=== PATIENT | male | born 1945 | race Caucasian/White ===

== ENCOUNTER 2021-09-05 08:14 | Inpatient (IN) ==
[2021-09-05 08:29] LABS: ABG BASE EXCESS -5.1 mmol/L (-2.0-2.0); ABG HCO3 19.9 mmol/L (22-26)
[2021-09-05 08:30] LABS: ABG ALLEN TEST POS
[2021-09-05 08:54] LABS: BASOPHILS # (AUTO) 0.1 X10^3/uL (0.0-0.1); BASOPHILS % (AUTO) 0.5 % (0.2-1.0); EOSINOPHILS % (AUTO) 0.4 % (0.9-2.9); HEMATOCRIT 41.4 % (42.0-54.0); HEMOGLOBIN 13.7 g/dL (13.5-18.0); LYMPHOCYTES # (AUTO) 1.3 X10^3/uL (1.3-2.9); LYMPHOCYTES % (AUTO) 11.6 % (21.0-51.0); MEAN CORPUSCULAR HEMOGLOBIN 30.9 pg (27.0-34.0); MEAN CORPUSCULAR HGB CONC 33.2 g/dL (33.0-35.0); MEAN PLATELET VOLUME 9.1 fL (7.4-11.0); MONOCYTES # (AUTO) 0.8 x10^3/uL (0.3-0.8); MONOCYTES % (AUTO) 7.6 % (0.0-13.0); NEUTROPHILS # (AUTO) 8.8 x10^3/uL (2.2-4.8); NEUTROPHILS % (AUTO) 79.9 % (42.0-75.0); RED BLOOD COUNT 4.45 X10^6/uL (4.7-6.0); RED CELL DISTRIBUTION WIDTH 14.4 % (11.6-16.5)
--- NOTE | 2021-09-05 08:59 | DR.GENAD ---
HPI Time Seen Time Seen by Provider: 09/05/21 08:30 PCP Primary Care Physician: BRIAN HPI Comment HPI Comment: A 75 y/o male presennting with worsening SOB x 2 week. He has cough, non-preductive. He states that he was diagnosed with COVID 1 week ago. He is O2 dependent COPD pt. Complaint/Symptoms Chief Complaint:: PT TESTED POSITIVE FOR COVID ON MONDAY THIS WEEK AND SYMPTOMS HAVE CONT TO WORSEN. PT PRESENTS TO TRIAGE IN RESP DISTRESS, RESP 44/MIN, O2 SAT 51% ON 3L NC PER PORTABLE HOME O2, CARBALLO/PURPLE IN COLOR COVID-19 Coronavirus risk:travel/contact w/high risk person: Yes Has patient experienced Coronavirus symptoms: Yes Coronavirus symptoms experienced: Coughing and Shortness of Breath Nurses notes reviewed Nurses Notes Review: Yes Source History Provided: Patient, Family Member and Significant Other Mode of Arrival Mode of Arrival: Wheelchair Timing Onset of Chief Complaint: 09/05/21 Came on: Gradually Duration Duration: Constant How lon Duration: Weeks Severity Severity: Moderate PMH PMH Past Medical History: Yes Past Medical History: COPD, Diabetes and Hypertension Past Medical History Comment: RECURRENT PNEUM Past Surgical History: Yes Surgical History: Appendectomy and CABG/Valve Surgery Family History History of Family Medical Conditions: Yes Family Medical History: Diabetes Mellitus, Cancer and Coronary Artery Disease Social History Does any household member use tobacco: No Alcohol Use: None Do you use any recreational Drugs:: No Lives With: Spouse and Family Lives Where: Home Travel Risk Coronavirus risk:travel/contact w/high risk person: Yes Has patient experienced Coronavirus symptoms: Yes Coronavirus symptoms experienced: Coughing and Shortness of Breath Infectious screening In the last 2 months have you had wt loss of >10#?: NO Have you had fever, night sweats or hemotysis?: Yes Have you traveled outside the country in the last 6 months?: No Isolation: Droplet ROS Review of Systems Constitutional: No Symptoms Reported Eyes: No Symptoms Reported ENTM: No Symptoms Reported Respiratoy: Productive Cough, Non-Productive Cough and Short of Breath Cardiovascular: No Symptoms Reported Gastrointestinal/Abdominal: No Symptoms Reported Genitourinary: No Symptoms Reported Neurological: No Symptoms Reported Musculoskeletal: No Symptoms Reported Integumentary: No Symptoms Reported Hematologic/Lymphatic: No Symptoms Reported Endocrine: No Symptoms Reported Psychiatric: No Symptoms Reported PE Vital Signs Vitals: Temperature 100.3 F Pulse Rate 86 Respiratory Rate 35 Blood Pressure 175/75 O2 Sat by Pulse Oximetry 95 General Limitations: No Limitations General Appearance: Alert, In Distress and Obese Head Head Exam: Normal Inspection, Atraumatic and Normocephalic Eyes Eye exam: Normal Appearance and EOMI ENT ENT Exam: Normal Exam, Normal Oropharynx, Normal External Ear Exam and Mucous Membranes Moist Neck Neck Exam: Normal Inspection, Full ROM and Trachea Midline Chest Chest Inspection: Normal Inspection and Symmetric Chest Wall Rise Respiratory Respiratory Exam: Other (tachypneic) Respiratory Exam: Bilateral: Rhonchi and Bilateral: Decreased Breath Sounds Cardiovascular Cardiovascular Exam: Regular Rate, Normal Rhythm, Normal Heart Sounds, +S1 and +S2 Abdominal Exam Abdominal Exam: Normal Inspection, Normal Bowel Sounds and Soft Extremities Extremities Exam: Normal Inspection and Full ROM Back Back Exam: Normal Inspection and Full ROM Neurologic Neurological Exam: Alert and Oriented X3 Psychiatric Psychiatric Exam: Normal Affect and Normal Mood Skin Skin Exam: Intact COURSE Education/Counseling Education/Counseling: Patient, Education and Counseling Educated On: Treatment, Diagnosis, Prognosis and Needs for Follow Up Critical Care Notes Total Time (mins): 30 Critical Diagnosis: Acute on Chronic Respiratory failure, Elevated D-dimer, C OVID ROR Labs Reviewed Result Diagrams: 09/05/21 08:19 09/05/21 08:19 Laboratory: 09/05/21 08:23 Sputum - Expectorated Sputum - Final WBC 11.0 X10^3/uL (3.6-10.0) H 09/05/21 08:19 RBC 4.45 X10^6/uL (4.7-6.0) L 09/05/21 08:19 Hgb 13.7 g/dL (13.5-18.0) 09/05/21 08:19 Hct 41.4 % (42.0-54.0) L 09/05/21 08:19 MCV 93.0 fL (80.0-100.0) 09/05/21 08:19 MCH 30.9 pg (27.0-34.0) 09/05/21 08:19 MCHC 33.2 g/dL (33.0-35.0) 09/05/21 08:19 RDW 14.4 % (11.6-16.5) 09/05/21 08:19 Plt Count 288 X10^3/uL (150.0-450.0) 09/05/21 08:19 MPV 9.1 fL (7.4-11.0) 09/05/21 08:19 Neut % (Auto) 79.9 % (42.0-75.0) H 09/05/21 08:19 Lymph % (Auto) 11.6 % (21.0-51.0) L 09/05/21 08:19 [place] % (Auto) 7.6 % (0.0-13.0) 09/05/21 08:19 Eos % (Auto) 0.4 % (0.9-2.9) L 09/05/21 08:19 Baso % (Auto) 0.5 % (0.2-1.0) 09/05/21 08:19 Neut # (Auto) 8.8 x10^3/uL (2.2-4.8) H 09/05/21 08:19 Lymph # (Auto) 1.3 X10^3/uL (1.3-2.9) 09/05/21 08:19 [place] # (Auto) 0.8 x10^3/uL (0.3-0.8) 09/05/21 08:19 Eos # (Auto) 0.0 x10^3/uL (0.0-0.2) 09/05/21 08:19 Baso # (Auto) 0.1 X10^3/uL (0.0-0.1) 09/05/21 08:19 Absolute Nucleated RBC 0.1 /100WBC 09/05/21 08:19 D-Dimer 1.79 ug/ml (0.0-0.57) H* 09/05/21 08:19 Sample Site Lr 09/05/21 08:24 ABG pH 7.350 (7.35-7.45) 09/05/21 08:24 ABG pCO2 36.0 mmHg (35.0-45.0) 09/05/21 08:24 ABG pO2 50.0 mmHg (80.0-100.0) L 09/05/21 08:24 ABG HCO3 19.9 mmol/L (22-26) L 09/05/21 08:24 ABG O2 Saturation 83.0 % (90-100) L* 09/05/21 08:24 ABG Base Excess -5.1 mmol/L (-2.0-2.0) L 09/05/21 08:24 Mir Test Pos 09/05/21 08:24 A-a Gradient 618.0 mmHg 09/05/21 08:24 FiO2 100.0 09/05/21 08:24 Blood Gas Comments Brian well cb 09/05/21 08:24 Sodium 133 mmol/L (136-145) L 09/05/21 08:19 Corrected Sodium 136 mmol/L (136-145) 09/05/21 08:19 Potassium 4.6 mmol/L (3.5-5.1) 09/05/21 08:19 Chloride 97 mmol/L (98-107) L 09/05/21 08:19 Carbon Dioxide 20.6 mmol/L (21-32) L 09/05/21 08:19 BUN 42 mg/dL (7-18) H 09/05/21 08:19 Creatinine 2.02 mg/dL (0.70-1.30) H 09/05/21 08:19 Est GFR (MDRD) Af Amer 42 (>60) L 09/05/21 08:19 Est GFR (MDRD) Non-Af 34 (>60) L 09/05/21 08:19 Glucose 243 mg/dL (65-99) H 09/05/21 08:19 Calcium 9.7 mg/dL (8.5-10.1) 09/05/21 08:19 Corrected Calcium 10.6 mg/dL (8.5-10.1) H 09/05/21 08:19 Total Bilirubin 0.70 mg/dL (0.2-1.0) 09/05/21 08:19 AST 52 Units/L (15-37) H 09/05/21 08:19 ALT 28 Units/L (12-78) 09/05/21 08:19 Alkaline Phosphatase 114 Units/L (46-116) 09/05/21 08:19 C-Reactive Protein 267.50 mg/L (0-3.0) H 09/05/21 08:19 Total Protein 9.0 g/dL (6.4-8.2) H 09/05/21 08:19 Albumin 2.9 g/dL (3.4-5.0) L 09/05/21 08:19 Globulin 6.1 g/dL (2.5-4.5) H 09/05/21 08:19 Albumin/Globulin Ratio 0.5 Ratio (1.1-2.1) L 09/05/21 08:19 SARS-CoV-2 (PCR) Positive (NEGATIVE) A 09/05/21 08:40 Influenza Type A (PCR) Negative (NEGATIVE) 09/05/21 08:40 Influenza Type B (PCR) Negative (NEGATIVE) 09/05/21 08:40 RSV (PCR) Negative (NEGATIVE) 09/05/21 08:40 Opioid Opioid Risk Tool Age (Aidan box if 16-45): No History of Preadolescent Sexual Abuse: No Total: 0 Total Score Risk Category: Low Risk Copyright: Malik JUSTO predicting aberrant behaviors Diagnosis Discharge Problem: Chronic obstructive pulmonary disease with acute respiratory distress, COVID- 19, Diabetes mellitus type 2, insulin dependent, Benign essential HTN, Essential hypertriglyceridemia CAD (coronary artery disease) Qualifiers: Coronary Disease-Associated Artery/Lesion type: [place] artery [place] vs. transplanted heart: [place] heart Associated angina: without angina Qualified Code(s): I25.10 - Atherosclerotic heart disease of [place] coronary artery without angina pectoris Hypothyroidism Qualifiers: Hypothyroidism type: acquired Qualified Code(s): E03.9 - Hypothyroidism, unspecified ADDITIONAL NOTES Additional Notes Additional Notes: Name: Nii CISNEROS#: [id number]: [id number] : 1945Sex: MLocation: ER Order Number(s): [id number](s):CHEST, 1 VIEW Ordering Physician: LUÍS VELASQUEZ Primary Care: NFD,Latasha Service Date: 09/05/21 Service Time: 0855 CHEST, 1 VIEW HISTORY: Respiratory distress Study: Single view of the chest. Comparison:None Findings: Cardiomegaly. Bilateral interstitial prominence, possible early alveolar infiltrates. No focal consolidations, pleural effusions or pneumothorax. Osseous structures demonstrate no acute abnormality. IMPRESSION: 1. Bilateral interstitial prominence and early alveolar infiltrates. Findings may represent atypical infection, including viral etiologies. Electronically signed by: HOLDEN SEVILLA (Sep 05, 2021 09:12:25) Report Electronically signed: 09/05/21912 CC: Luís Velasquez
[2021-09-05 09:06] LABS: ALBUMIN 2.9 g/dL (3.4-5.0); CALCIUM 9.7 mg/dL (8.5-10.1); CARBON DIOXIDE 20.6 mmol/L (21-32); COR CA(FOR HYPOALB) 10.6 mg/dL (8.5-10.1); CREATININE 2.02 mg/dL (0.70-1.30)
--- NOTE | 2021-09-05 09:13 | RAD ---
CHEST, 1 VIEWHISTORY: Respiratory distressStudy: Single view of the chest.Comparison:NoneFindings:Cardiomegaly. Bilateral interstitial prominence, possible early alveolar infiltrates. No focal consolidations, pleural effusions or pneumothorax. Osseous structures demonstrate no acute abnormality.IMPRESSION:1. Bilateral interstitial prominence and early alveolar infiltrates. Findings may represent atypical infection, including viral etiologies.Electronically signed by: HOLDEN SEVILLA (Sep 05, 2021 09:12:25)
[2021-09-05] MEDS ORDERED: LOPRESSOR INJ 5 MG AMP IVP ONE (09:42)
[2021-09-05] MEDS ORDERED: PHARMACY CONSULT - LOVENOX XX SCH (11:06)
[2021-09-05] MEDS ORDERED: ROBITUSSIN DM PO PRN (11:06)
[2021-09-05] MEDS ORDERED: ULTRAM PO PRN (11:06)
[2021-09-05] MEDS ORDERED: REMDESIVIR 200 MG in NS 250 ML IV 250 ML IV ONE (11:06)
[2021-09-05] MEDS: NS 1,000 ML IV 1,000 ML IV SCH (11:48)
[2021-09-05] MEDS: APRESOLINE INJ 20 MG VIAL IVP PRN ×2 (11:48→17:25)
[2021-09-05] MEDS: NYSTATIN POWDER TOP SCH ×2 (13:04→20:38)
[2021-09-05] MEDS: SOLU-Medrol 40 MG VIAL IVP SCH ×2 (13:17→21:00)
[2021-09-05] MEDS: NovoLIN R (or HumuLIN R) SUBCUT PRN ×2 (13:17→16:24)
[2021-09-05] MEDS: ASCORBIC ACID INJ MULTI-DOSE VIAL 1,500 MG in NS 100 ML IV 100 ML IV SCH ×2 (14:12→20:37)
[2021-09-05] MEDS: ZOSYN VIAL 3.375 GRAMS 3.375 G in NS 100 ML IV + SPIKE MINIBAG* 100 ML IV SCH ×2 (14:13→21:00)
[2021-09-05] MEDS ORDERED: PULMICORT NEB TX 0.5 MG NEB ONE (19:52)
[2021-09-05] MEDS ORDERED: BROVANA ONE (19:52)
[2021-09-05] MEDS ORDERED: SNACK - Diabetic Appropriate PO SCH (20:00)
[2021-09-05] MEDS: LOPID PO SCH (20:37)
[2021-09-05] MEDS: LOVENOX INJ 100 MG SYR SC SCH (20:37)
[2021-09-05] MEDS: LOPRESSOR TAB 50 MG PO SCH (20:37)
[2021-09-05] MEDS: SNACK - Diabetic Appropriate PO SCH (20:37)
[2021-09-05] MEDS: PEPCID TAB 40 MG PO SCH (20:38)
[2021-09-05] MEDS: NEURONTIN CAP 300 MG PO SCH (20:38)
[2021-09-05] MEDS: VIBRAMYCIN PO SCH (20:38)
[2021-09-05] MEDS: ZyrTEC TAB 10 MG PO SCH (20:39)
[2021-09-05] MEDS: ZINC SULFATE PO SCH (20:39)
[2021-09-05] MEDS: BROVANA IN SCH (20:52)
[2021-09-05] MEDS: PULMICORT NEB TX 0.5 MG NEB SCH (20:52)
[2021-09-06] MEDS: ASCORBIC ACID INJ MULTI-DOSE VIAL 1,500 MG in NS 100 ML IV 100 ML IV SCH ×4 (03:07→20:21)
[2021-09-06 05:07] LABS: BASOPHILS % (AUTO) 0.1 % (0.2-1.0); HEMATOCRIT 37.6 % (42.0-54.0); HEMOGLOBIN 12.8 g/dL (13.5-18.0); LYMPHOCYTES # (AUTO) 0.5 X10^3/uL (1.3-2.9); LYMPHOCYTES % (AUTO) 7.6 % (21.0-51.0); MEAN CORPUSCULAR HEMOGLOBIN 31.1 pg (27.0-34.0); MEAN CORPUSCULAR HGB CONC 33.9 g/dL (33.0-35.0); MEAN CORPUSCULAR VOLUME 91.8 fL (80.0-100.0); MEAN PLATELET VOLUME 9.2 fL (7.4-11.0); MONOCYTES # (AUTO) 0.2 x10^3/uL (0.3-0.8); NEUTROPHILS # (AUTO) 6.1 x10^3/uL (2.2-4.8); NEUTROPHILS % (AUTO) 89.3 % (42.0-75.0); RED CELL DISTRIBUTION WIDTH 14.6 % (11.6-16.5); WHITE BLOOD COUNT 6.8 X10^3/uL (3.6-10.0)
[2021-09-06 05:26] LABS: ALBUMIN 2.4 g/dL (3.4-5.0); CALCIUM 9.1 mg/dL (8.5-10.1); CARBON DIOXIDE 21.5 mmol/L (21-32); COR CA(FOR HYPOALB) 10.4 mg/dL (8.5-10.1); CREATININE 1.68 mg/dL (0.70-1.30)
[2021-09-06] MEDS: SOLU-Medrol 40 MG VIAL IVP SCH ×3 (05:33→21:34)
[2021-09-06] MEDS: ZOSYN VIAL 3.375 GRAMS 3.375 G in NS 100 ML IV + SPIKE MINIBAG* 100 ML IV SCH ×3 (05:33→21:34)
[2021-09-06 05:53] LABS: ABG ALLEN TEST POS; ABG BASE EXCESS -1.5 mmol/L (-2.0-2.0); ABG HCO3 23.7 mmol/L (22-26)
[2021-09-06] MEDS: NovoLIN R (or HumuLIN R) SUBCUT PRN ×4 (06:08→20:25)
--- NOTE | 2021-09-06 06:36 | DR.H&P ---
H&P History & Physical for Day of: H&P Date: 09/05/21 Chief Complaint Chief Complaint: Shortness of breath Generalized weakness, COVID-19 Allergies Allergies Allergy/AdvReac Type Severity Reaction Status Date / Time adhesive tape Allergy Verified 09/05/21 09:13 moxifloxacin [From Avelox] Allergy Verified 09/05/21 09:13 History of Present Illness History of Present Illness: Pt is a 75 year old male past medical history of COPD(BL home O2 between 2-3L), Hypertension, DMT2, presenting with gradual weakness, loss of appetite, and worsening shortness of breath. He reports testing positive for COVID-19 over a week ago, has been vaccinated with J&J vaccine, and received Regen-COV infusion 4 days ago. Labs/imaging: Wbc 11, Hgb 13.7, Plt 288, Na 136, K 4.6, Creatinine 2.02, Glucose 243, CRP 267, D-dimer 1.79, Sputum culture pending, ABG: pH 7.35, CO2 26, O2 50, HCO3 19, O2sat 83% on RA. CXR was obtained that revealed: Bilateral interstitial prominence and early alveolar infiltrates. Findings may represent atypical infection, including viral etiologies. Will start patient on pneumonia protocol that includes: IVF NS@KVO ml/h, Solumedrol 80mg q6h, Remdesivir, scheduled Bronchodilators Xopenex and Budesonide, Antibiotics: Zosyn, immune supporting supplements, supplemental O2, SSI, I/S, Physical therapy, Respiratory therapy consult. Restart home medica tions. Pt was started on full dose lovenox due to elevated D-dimer. Unable to get CTA chest at this time due to renal function. He is requiring BiPAP, will discuss with RT and attempt to wean to heated high flow oxygen. Pt does use BiPAP at night at home. Will continue to monitor and follow up labs/imaging. Time spent on clinical assessment, reviewing labs and imaging, decision making, and documentation greater than 45 minutes. Past Medical History Past Medical History: COPD, Diabetes and Hypertension Past Surgical History Surgical History: Appendectomy Family History Family Medical History: Cancer Social History Does any household member use tobacco: No Alcohol Use: None Medications Home Medications: adhesive tape Allergy (Verified 09/05/21 09:13) moxifloxacin [From Avelox] Allergy (Verified 09/05/21 09:13) CONTINUE taking the following medications albuterol sulfate 2.5 mg INHALATION Q6HR PRN 09/05/21 [History] aspirin [Aspir-81] 81 mg PO DAILY 09/05/21 [History] azithromycin 500 mg PO DAILY 09/05/21 [History] budesonide-formoterol [Symbicort] 2 puff INHALATION DAILY 09/05/21 [History] cetirizine 5 mg PO HS 09/05/21 [History] clopidogrel [Plavix] 75 mg PO DAILY 09/05/21 [History] fluticasone propionate [Flonase Allergy Relief] 2 spray INTRANASAL DAILY 09/05/21 [History] gabapentin 300 mg PO BID 09/05/21 [History] gemfibrozil 600 mg PO BID 09/05/21 [History] hydrochlorothiazide 12.5 mg PO DAILY 09/05/21 [History] insulin asp prt-insulin aspart [Novolog Mix 70-30 U-100 Insuln] 40 unit SUBCUT BID 09/05/21 [History] levothyroxine 75 mcg PO DAILY 09/05/21 [History] loratadine 10 mg PO DAILY 09/05/21 [History] metoprolol tartrate 50 mg PO BID 09/05/21 [History] pioglitazone 15 mg PO DAILY 09/05/21 [History] rosuvastatin 10 mg PO DAILY 09/05/21 [History] terazosin 2 mg PO DAILY 09/05/21 [History] tramadol 50 mg PO Q6H PRN 09/05/21 [History] Labs Result Diagrams: 09/06/21 04:23 09/06/21 04:23 Labs: 09/05/21 08:23 Sputum - Expectorated Sputum - Final Laboratory WBC 6.8 X10^3/uL (3.6-10.0) 09/06/21 04:23 RBC 4.10 X10^6/uL (4.7-6.0) L 09/06/21 04:23 Hgb 12.8 g/dL (13.5-18.0) L 09/06/21 04:23 Hct 37.6 % (42.0-54.0) L 09/06/21 04:23 MCV 91.8 fL (80.0-100.0) 09/06/21 04:23 MCH 31.1 pg (27.0-34.0) 09/06/21 04:23 MCHC 33.9 g/dL (33.0-35.0) 09/06/21 04: RDW 14.6 % (11.6-16.5) 09/06/21 04:23 Plt Count 221 X10^3/uL (150.0-450.0) 09/06/21 04:23 MPV 9.2 fL (7.4-11.0) 09/06/21 04:23 Neut % (Auto) 89.3 % (42.0-75.0) H 09/06/21 04:23 Lymph % (Auto) 7.6 % (21.0-51.0) L 09/06/21 04:23 [place] % (Auto) 3.0 % (0.0-13.0) 09/06/21 04:23 Eos % (Auto) 0.0 % (0.9-2.9) L 09/06/21 04:23 Baso % (Auto) 0.1 % (0.2-1.0) L 09/06/21 04:23 Neut # (Auto) 6.1 x10^3/uL (2.2-4.8) H 09/06/21 04:23 Lymph # (Auto) 0.5 X10^3/uL (1.3-2.9) L 09/06/21 04:23 [place] # (Auto) 0.2 x10^3/uL (0.3-0.8) L 09/06/21 04:23 Eos # (Auto) 0.0 x10^3/uL (0.0-0.2) 09/06/21 04:23 Baso # (Auto) 0.0 X10^3/uL (0.0-0.1) 09/06/21 04:23 Absolute Nucleated RBC 0.0 /100WBC 09/06/21 04:23 D-Dimer 1.79 ug/ml (0.0-0.57) H* 09/05/21 08:19 Sample Site Lrad 09/06/21 05:50 ABG pH 7.370 (7.35-7.45) 09/06/21 05:50 ABG pCO2 41.0 mmHg (35.0-45.0) 09/06/21 05:50 ABG pO2 75.0 mmHg (80.0-100.0) L 09/06/21 05:50 ABG HCO3 23.7 mmol/L (22-26) 09/06/21 05:50 ABG O2 Saturation 94.0 % (90-100) 09/06/21 05:50 ABG Base Excess -1.5 mmol/L (-2.0-2.0) 09/06/21 05:50 Mir Test Pos 09/06/21 05:50 A-a Gradient 373.0 mmHg 09/06/21 05:50 FiO2 70.0 09/06/21 05:50 Blood Gas Comments Brian well ms 09/06/21 05:50 Sodium 139 mmol/L (136-145) 09/06/21 04:23 Corrected Sodium 144 mmol/L (136-145) 09/06/21 04:23 Potassium 4.6 mmol/L (3.5-5.1) 09/06/21 04:23 Chloride 103 mmol/L (98-107) 09/06/21 04:23 Carbon Dioxide 21.5 mmol/L (21-32) 09/06/21 04:23 BUN 46 mg/dL (7-18) H 09/06/21 04:23 Creatinine 1.68 mg/dL (0.70-1.30) H 09/06/21 04:23 Est GFR (MDRD) Af Amer 51 (>60) L 09/06/21 04:23 Est GFR (MDRD) Non-Af 42 (>60) L 09/06/21 04:23 Glucose 329 mg/dL (65-99) H 09/06/21 04:23 POC Glucose (mg/dL) 372 mg/dL (65-99) H 09/05/21 19:26 Calcium 9.1 mg/dL (8.5-10.1) 09/06/21 04:23 Corrected Calcium 10.4 mg/dL (8.5-10.1) H 09/06/21 04:23 Total Bilirubin 0.50 mg/dL (0.2-1.0) 09/06/21 04:23 AST 36 Units/L (15-37) 09/06/21 04:23 ALT 27 Units/L (12-78) 09/06/21 04:23 Alkaline Phosphatase 93 Units/L (46-116) 09/06/21 04:23 C-Reactive Protein 267.50 mg/L (0-3.0) H 09/05/21 08:19 Total Protein 8.0 g/dL (6.4-8.2) 09/06/21 04:23 Albumin 2.4 g/dL (3.4-5.0) L 09/06/21 04:23 Globulin 5.6 g/dL (2.5-4.5) H 09/06/21 04:23 Albumin/Globulin Ratio 0.4 Ratio (1.1-2.1) L 09/06/21 04:23 SARS-CoV-2 (PCR) Positive (NEGATIVE) A 09/05/21 08:40 Influenza Type A (PCR) Negative (NEGATIVE) 09/05/21 08:40 Influenza Type B (PCR) Negative (NEGATIVE) 09/05/21 08:40 RSV (PCR) Negative (NEGATIVE) 09/05/21 08:40 Review of Systems Constitutional: Fever, Chills and Weakness Eyes: No Symptoms Reported ENT: No Symptoms Reported Respiratory: Cough, Shortness of Breath, Sputum and Wheezing Cardiovascular: No Symptoms Reported Gastrointestinal: No Symptoms Reported Genitourinary: No Symptoms Reported Musculoskeletal: No Symptoms Reported Skin: No Symptoms Reported Neurological: No Symptoms Reported Physical Exam Vital Signs: Temperature 97.9 F Pulse Rate 70 Respiratory Rate 35 Blood Pressure 154/65 O2 Sat by Pulse Oximetry 90 Oriented: Normal Eyes: Normal Ear: Normal Nose: Normal Throat: Normal Respiratory: Diminished Throughout and Rhonchi Throughout Cardiovascular: Normal : Normal Auscultation: Bowel Sounds: Normal Palpation: Normal Tenderness: Normal Skin: Normal Musculoskeletal: Normal Psychiatric: Normal Mood Description: Calm and Appropriate Affect: Normal Speech Pattern: Clear and Appropriate Assessment/Plan (1) COVID-19: Status: Acute Plan: Pneumonia protocol (2) Chronic obstructive pulmonary disease with acute respiratory distress: Status: Acute (3) Acute renal failure: Status: Acute (4) Dehydration: Status: Acute Review H&P Reviewed: Yes Patient was examined?: Yes
--- NOTE | 2021-09-06 07:42 | RAD ---
HISTORYCOVID+STUDYCHEST, 1 [id number]/09/2022.TECHNIQUEAP view of the chestFINDINGSCardiac and mediastinal contours are within normal limits. Status post median sternotomy. Similar appearance of bilateral airspace opacities. No definite pleural effusion or pneumothorax.IMPRESSIONNo significant change in bilateral pneumonia.Electronically signed by: Ke Mckay (Sep 06, 2021 07:41:01)
[2021-09-06] MEDS: ACTOS PO SCH (08:42)
[2021-09-06] MEDS: HYDROCHLOROTHIAZIDE 12.5 MG CAP PO SCH (08:50)
[2021-09-06] MEDS: CRESTOR TAB 10 MG PO SCH (08:50)
[2021-09-06] MEDS: FLONASE NASAL SPRAY ENOSTRIL SCH (08:50)
[2021-09-06] MEDS: NYSTATIN POWDER TOP SCH ×2 (08:51→20:24)
[2021-09-06] MEDS: LOPRESSOR TAB 50 MG PO SCH ×2 (08:51→20:22)
[2021-09-06] MEDS: HYTRIN PO SCH (08:51)
[2021-09-06] MEDS: LOPID PO SCH ×2 (08:52→20:22)
[2021-09-06] MEDS: LOVENOX INJ 100 MG SYR SC SCH ×2 (08:52→20:23)
[2021-09-06] MEDS: NEURONTIN CAP 300 MG PO SCH ×2 (08:52→20:24)
[2021-09-06] MEDS: BROVANA IN SCH ×2 (08:53→20:13)
[2021-09-06] MEDS: PULMICORT NEB TX 0.5 MG NEB SCH ×2 (08:53→20:13)
[2021-09-06] MEDS: PEPCID TAB 40 MG PO SCH ×2 (08:53→20:25)
[2021-09-06] MEDS: SYNTHROID 75 mcg TAB PO SCH (08:53)
[2021-09-06] MEDS: REMDESIVIR 100 MG in NS 100 ML IV + SPIKE MINIBAG* 120 ML IV SCH (08:54)
[2021-09-06] MEDS: PLAVIX PO SCH (08:54)
[2021-09-06] MEDS: ZINC SULFATE PO SCH ×2 (08:55→20:26)
[2021-09-06] MEDS: VIBRAMYCIN PO SCH ×2 (08:55→20:26)
[2021-09-06] MEDS ORDERED: SYMBICORT INH 80/4.5 mcg IN SCH (09:00)
[2021-09-06] MEDS ORDERED: VITAMIN A PO SCH (09:00)
[2021-09-06] MEDS ORDERED: VITAMIN D (1.25MG) PO SCH (09:00)
[2021-09-06] MEDS: ASPIRIN EC 81 MG PO SCH (09:00)
[2021-09-06] MEDS: NS 1,000 ML IV 1,000 ML IV SCH (14:07)
[2021-09-06] MEDS: SNACK - Diabetic Appropriate PO SCH (20:21)
[2021-09-06] MEDS: ZyrTEC TAB 10 MG PO SCH (20:26)
[2021-09-07] MEDS: ASCORBIC ACID INJ MULTI-DOSE VIAL 1,500 MG in NS 100 ML IV 100 ML IV SCH ×4 (02:47→20:04)
[2021-09-07 04:44] LABS: BASOPHILS % (AUTO) 0.2 % (0.2-1.0); EOSINOPHILS % (AUTO) 0.1 % (0.9-2.9); HEMOGLOBIN 12.1 g/dL (13.5-18.0); LYMPHOCYTES # (AUTO) 0.6 X10^3/uL (1.3-2.9); LYMPHOCYTES % (AUTO) 5.1 % (21.0-51.0); MEAN CORPUSCULAR HEMOGLOBIN 30.6 pg (27.0-34.0); MEAN CORPUSCULAR HGB CONC 33.5 g/dL (33.0-35.0); MEAN CORPUSCULAR VOLUME 91.3 fL (80.0-100.0); MEAN PLATELET VOLUME 9.4 fL (7.4-11.0); MONOCYTES # (AUTO) 0.7 x10^3/uL (0.3-0.8); MONOCYTES % (AUTO) 5.5 % (0.0-13.0); NEUTROPHILS # (AUTO) 10.7 x10^3/uL (2.2-4.8); NEUTROPHILS % (AUTO) 89.1 % (42.0-75.0); RED BLOOD COUNT 3.94 X10^6/uL (4.7-6.0); RED CELL DISTRIBUTION WIDTH 14.5 % (11.6-16.5); WHITE BLOOD COUNT 12.1 X10^3/uL (3.6-10.0)
[2021-09-07 04:58] LABS: ALBUMIN 2.2 g/dL (3.4-5.0); CALCIUM 8.8 mg/dL (8.5-10.1); CARBON DIOXIDE 24.1 mmol/L (21-32); COR CA(FOR HYPOALB) 10.2 mg/dL (8.5-10.1); CREATININE 1.77 mg/dL (0.70-1.30); TOTAL PROTEIN 7.4 g/dL (6.4-8.2)
[2021-09-07] MEDS: ZOSYN VIAL 3.375 GRAMS 3.375 G in NS 100 ML IV + SPIKE MINIBAG* 100 ML IV SCH ×3 (05:37→21:25)
[2021-09-07] MEDS: SOLU-Medrol 40 MG VIAL IVP SCH ×3 (05:37→21:25)
--- NOTE | 2021-09-07 06:29 | RAD ---
HISTORYCOVID+ DM, HTN, RECURRENT PNEU SX: APPY, CABG/VALVESTUDYCHEST, 1 [id number]/10/2022FINDINGSThe trachea is midline. The cardiac silhouette is unremarkable. Changes of prior CABG surgery. Bilateral airspace opacities unchanged. No pneumothorax. The bony thorax is unremarkable.IMPRESSIONStable portable chest.Electronically signed by: Ladarius Fuchs (Sep 07, 2021 06:27:14)
[2021-09-07] MEDS: BROVANA IN SCH ×2 (08:40→20:00)
[2021-09-07] MEDS: PULMICORT NEB TX 0.5 MG NEB SCH ×2 (08:40→20:00)
[2021-09-07] MEDS: ACTOS PO SCH (09:07)
[2021-09-07] MEDS: NEURONTIN CAP 300 MG PO SCH ×2 (09:08→20:00)
[2021-09-07] MEDS: ASPIRIN EC 81 MG PO SCH (09:08)
[2021-09-07] MEDS: HYTRIN PO SCH (09:09)
[2021-09-07] MEDS: HYDROCHLOROTHIAZIDE 12.5 MG CAP PO SCH (09:09)
[2021-09-07] MEDS: NYSTATIN POWDER TOP SCH ×2 (09:09→21:25)
[2021-09-07] MEDS: CRESTOR TAB 10 MG PO SCH (09:09)
[2021-09-07] MEDS: FLONASE NASAL SPRAY ENOSTRIL SCH (09:09)
[2021-09-07] MEDS: LOPRESSOR TAB 50 MG PO SCH ×2 (09:10→20:00)
[2021-09-07] MEDS: LOVENOX INJ 100 MG SYR SC SCH ×2 (09:10→20:03)
[2021-09-07] MEDS: LOPID PO SCH ×2 (09:10→20:00)
[2021-09-07] MEDS: PEPCID TAB 40 MG PO SCH (09:11)
[2021-09-07] MEDS: PLAVIX PO SCH (09:11)
[2021-09-07] MEDS: SYNTHROID 75 mcg TAB PO SCH (09:11)
[2021-09-07] MEDS: REMDESIVIR 100 MG in NS 100 ML IV + SPIKE MINIBAG* 120 ML IV SCH (09:11)
[2021-09-07] MEDS: VIBRAMYCIN PO SCH ×2 (09:12→20:00)
[2021-09-07] MEDS: ZINC SULFATE PO SCH ×2 (09:12→20:00)
[2021-09-07] MEDS: VITAMIN D3 125 mcg (5,000 UNITS) PO SCH (09:12)
[2021-09-07] MEDS: TUSSIONEX PENNKINETIC SUSP PO PRN ×2 (09:12→20:03)
[2021-09-07] MEDS: NS 1,000 ML IV 1,000 ML IV SCH (11:46)
[2021-09-07] MEDS: NovoLIN R (or HumuLIN R) SUBCUT PRN ×2 (12:34→16:48)
--- NOTE | 2021-09-07 15:00 | PCM.PROG ---
Progress Note Progress Note for Day of Date of Exam: 09/06/21 Subjective Subjective: Pt is a 75 year old male past medical history of COPD(BL home O2 between 2-3L), Hypertension, DMT2, admitted for COVID-19 pneumonia and hypoxia. Pt has been vaccinated with J&J vaccine and received Regen-COV outpatient. This morning pt reports some improvement in his symptoms. He is currently on heated high flow oxygen with FiO2 100%. Labs/imaging: Wbc 6.8, Hgb 12.8, Plt 221, Na 139, K 4.6, Creatinine 1.68, Glucose 329, Sputum culture NGTD, ABG: pH 7.37, CO2 41, O2 75, HCO3 23, O2sat 94% on FiO2 70%. CXR was obtained that revealed: no significant change in bilateral pneumonia. Pt is currently on pneumonia protocol that includes: IVF NS@KVO ml/h, Solumedrol 80mg q6h, Remdesivir, scheduled Bronchodilators Xopenex and Budesonide, Antibiotics: Zosyn, Full dose lovenox, immune supporting supplements, supplemental O2, SSI, I/S, Physical therapy, Respiratory therapy consult. Hyperglycemia today, will taper down solumedrol to 40mg TID. Will continue to closely monitor and follow up labs/imaging. Time spent on clinical assessment, reviewing labs and imaging, decision making, and documentation greater than 45 minutes. Past Medical Family Social History Past Med/Fam/Surg Hx: No changes since H&P Allergies: Allergies adhesive tape Allergy (Verified 09/05/21 09:13) moxifloxacin [From Avelox] Allergy (Verified 09/05/21 09:13) Review of Systems ROS: No change since H&P Vital Signs and I&O's Vital Signs: Temperature 98.2 F Pulse Rate 79 Respiratory Rate 46 Blood Pressure 137/60 O2 Sat by Pulse Oximetry 85 Intake and Output: Intake & Output 09/04/21 09/05/21 09/06/21 09/07/21 23:59 23:59 23:59 23:59 Intake Total 2573 / 2573 4103 / 4103 729 / 729 Output Total 1200 / 1200 1650 / 1650 400 / 400 Balance 1373 / 1373 2453 / 2453 329 / 329 Physical Exam Oriented: Normal Eyes: Normal Ear: Normal Nose: Normal Throat: Normal Respiratory: Diminished, Wheezes and Rales Cardiovascular: Normal : Normal Auscultation: Bowel Sounds: Normal Tenderness: Normal Skin: Normal Musculoskeletal: Normal Psychiatric: Normal Mood Description: Calm and Appropriate Affect: Normal Speech Pattern: Clear and Appropriate Laboratory and Diagnostics Result Diagrams: 09/07/21 04:07 09/07/21 04:07 Labs: 09/05/21 08:23 Sputum - Expectorated Sputum Sputum Culture - Final 09/05/21 08:23 Sputum - Expectorated Sputum - Final Laboratory WBC 12.1 X10^3/uL (3.6-10.0) H 09/07/21 04:07 RBC 3.94 X10^6/uL (4.7-6.0) L 09/07/21 04:07 Hgb 12.1 g/dL (13.5-18.0) L 09/07/21 04:07 Hct 36.0 % (42.0-54.0) L 09/07/21 04:07 MCV 91.3 fL (80.0-100.0) 09/07/21 04:07 MCH 30.6 pg (27.0-34.0) 09/07/21 04:07 MCHC 33.5 g/dL (33.0-35.0) 09/07/21 04:07 RDW 14.5 % (11.6-16.5) 09/07/21 04:07 Plt Count 238 X10^3/uL (150.0-450.0) 09/07/21 04:07 MPV 9.4 fL (7.4-11.0) 09/07/21 04:07 Neut % (Auto) 89.1 % (42.0-75.0) H 09/07/21 04:07 Lymph % (Auto) 5.1 % (21.0-51.0) L 09/07/21 04:07 [place] % (Auto) 5.5 % (0.0-13.0) 09/07/21 04:07 Eos % (Auto) 0.1 % (0.9-2.9) L 09/07/21 04:07 Baso % (Auto) 0.2 % (0.2-1.0) 09/07/21 04:07 Neut # (Auto) 10.7 x10^3/uL (2.2-4.8) H 09/07/21 04:07 Lymph # (Auto) 0.6 X10^3/uL (1.3-2.9) L 09/07/21 04:07 [place] # (Auto) 0.7 x10^3/uL (0.3-0.8) 09/07/21 04:07 Eos # (Auto) 0.0 x10^3/uL (0.0-0.2) 09/07/21 04:07 Baso # (Auto) 0.0 X10^3/uL (0.0-0.1) 09/07/21 04:07 Absolute Nucleated RBC 0.1 /100WBC 09/07/21 04:07 D-Dimer 1.79 ug/ml (0.0-0.57) H* 09/05/21 08:19 Sample Site Lrad 09/06/21 05:50 ABG pH 7.370 (7.35-7.45) 09/06/21 05:50 ABG pCO2 41.0 mmHg (35.0-45.0) 09/06/21 05:50 ABG pO2 75.0 mmHg (80.0-100.0) L 09/06/21 05:50 ABG HCO3 23.7 mmol/L (22-26) 09/06/21 05:50 ABG O2 Saturation 94.0 % (90-100) 09/06/21 05:50 ABG Base Excess -1.5 mmol/L (-2.0-2.0) 09/06/21 05:50 Mir Test Pos 09/06/21 05:50 A-a Gradient 373.0 mmHg 09/06/21 05:50 FiO2 70.0 09/06/21 05:50 Blood Gas Comments Brian well ms 09/06/21 05:50 Sodium 140 mmol/L (136-145) 09/07/21 04:07 Corrected Sodium 141 mmol/L (136-145) 09/07/21 04:07 Potassium 4.6 mmol/L (3.5-5.1) 09/07/21 04:07 Chloride 104 mmol/L (98-107) 09/07/21 04:07 Carbon Dioxide 24.1 mmol/L (21-32) 09/07/21 04:07 BUN 66 mg/dL (7-18) H 09/07/21 04:07 Creatinine 1.77 mg/dL (0.70-1.30) H 09/07/21 04:07 Est GFR (MDRD) Af Amer 48 (>60) L 09/07/21 04:07 Est GFR (MDRD) Non-Af 40 (>60) L 09/07/21 04:07 Glucose 159 mg/dL (65-99) H 09/07/21 04:07 POC Glucose (mg/dL) 241 mg/dL (65-99) H 09/07/21 11:50 Calcium 8.8 mg/dL (8.5-10.1) 09/07/21 04:07 Corrected Calcium 10.2 mg/dL (8.5-10.1) H 09/07/21 04:07 Total Bilirubin 0.40 mg/dL (0.2-1.0) 09/07/21 04:07 AST 57 Units/L (15-37) H 09/07/21 04:07 ALT 38 Units/L (12-78) 09/07/21 04:07 Alkaline Phosphatase 89 Units/L (46-116) 09/07/21 04:07 C-Reactive Protein 167.50 mg/L (0-3.0) H 09/07/21 04:07 Total Protein 7.4 g/dL (6.4-8.2) 09/07/21 04:07 Albumin 2.2 g/dL (3.4-5.0) L 09/07/21 04:07 Globulin 5.2 g/dL (2.5-4.5) H 09/07/21 04:07 Albumin/Globulin Ratio 0.4 Ratio (1.1-2.1) L 09/07/21 04:07 SARS-CoV-2 (PCR) Positive (NEGATIVE) A 09/05/21 08:40 Influenza Type A (PCR) Negative (NEGATIVE) 09/05/21 08:40 Influenza Type B (PCR) Negative (NEGATIVE) 09/05/21 08:40 RSV (PCR) Negative (NEGATIVE) 09/05/21 08:40 Plan (1) COVID-19: Status: Acute Plan: Pneumonia protocol (2) Chronic obstructive pulmonary disease with acute respiratory distress: Status: Acute (3) Acute renal failure: Status: Acute (4) Dehydration: Status: Acute
--- NOTE | 2021-09-07 15:42 | PCM.PROG ---
Progress Note Progress Note for Day of Date of Exam: 09/07/21 Subjective Subjective: Pt is a 75 year old male past medical history of COPD(BL home O2 between 2-3L), Hypertension, DMT2, admitted for COVID-19 pneumonia and hypoxia. Pt has been vaccinated with J&J vaccine and received Regen-COV outpatient. This morning pt continues to have shortness of breath. He is currently on heated high flow oxygen with FiO2 100%. Feels some minimal improvement. Labs/imaging: Wbc 12.1, Hgb 12.1, Plt 238, Na 140, K 4.6, Creatinine 1.77, Glucose 159, CRP 167, Sputum culture NGTD. CXR was obtained that revealed: no significant change in bilateral pneumonia. Pt is currently on pneumonia protocol that includes: IVF NS@KVO ml/h, Solumedrol 40mg q8h, Remdesivir, scheduled Bronchodilators Xopenex and Budesonide, Antibiotics: Zosyn, Full dose lovenox, immune supporting supplements, supplemental O2, SSI, I/S, Physical therapy, Respiratory therapy consult. Add gonzalo jin. Will continue to closely monitor and follow up labs/imaging. Time spent on clinical assessment, reviewing labs and imaging, decision making, and documentation greater than 45 minutes. Past Medical Family Social History Past Med/Fam/Surg Hx: No changes since H&P Allergies: Allergies adhesive tape Allergy (Verified 09/05/21 09:13) moxifloxacin [From Avelox] Allergy (Verified 09/05/21 09:13) Review of Systems ROS: No change since H&P Vital Signs and I&O's Vital Signs: Temperature 98.2 F Pulse Rate 79 Respiratory Rate 46 Blood Pressure 137/60 O2 Sat by Pulse Oximetry 85 Intake and Output: Intake & Output 09/04/21 09/05/21 09/06/21 09/07/21 23:59 23:59 23:59 23:59 Intake Total 2573 / 2573 4103 / 4103 729 / 729 Output Total 1200 / 1200 1650 / 1650 400 / 400 Balance 1373 / 1373 2453 / 2453 329 / 329 Physical Exam Oriented: Normal Eyes: Normal Ear: Normal Nose: Normal Throat: Normal Respiratory: Diminished, Wheezes and Rales Cardiovascular: Normal : Normal Auscultation: Bowel Sounds: Normal Tenderness: Normal Skin: Normal Musculoskeletal: Normal Psychiatric: Normal Mood Description: Calm and Appropriate Affect: Normal Speech Pattern: Clear and Appropriate Laboratory and Diagnostics Result Diagrams: 09/07/21 04:07 09/07/21 04:07 Labs: 09/05/21 08:23 Sputum - Expectorated Sputum Sputum Culture - Final 09/05/21 08:23 Sputum - Expectorated Sputum - Final Laboratory WBC 12.1 X10^3/uL (3.6-10.0) H 09/07/21 04:07 RBC 3.94 X10^6/uL (4.7-6.0) L 09/07/21 04:07 Hgb 12.1 g/dL (13.5-18.0) L 09/07/21 04:07 Hct 36.0 % (42.0-54.0) L 09/07/21 04:07 MCV 91.3 fL (80.0-100.0) 09/07/21 04:07 MCH 30.6 pg (27.0-34.0) 09/07/21 04:07 MCHC 33.5 g/dL (33.0-35.0) 09/07/21 04:07 RDW 14.5 % (11.6-16.5) 09/07/21 04:07 Plt Count 238 X10^3/uL (150.0-450.0) 09/07/21 04:07 MPV 9.4 fL (7.4-11.0) 09/07/21 04:07 Neut % (Auto) 89.1 % (42.0-75.0) H 09/07/21 04:07 Lymph % (Auto) 5.1 % (21.0-51.0) L 09/07/21 04:07 [place] % (Auto) 5.5 % (0.0-13.0) 09/07/21 04:07 Eos % (Auto) 0.1 % (0.9-2.9) L 09/07/21 04:07 Baso % (Auto) 0.2 % (0.2-1.0) 09/07/21 04:07 Neut # (Auto) 10.7 x10^3/uL (2.2-4.8) H 09/07/21 04:07 Lymph # (Auto) 0.6 X10^3/uL (1.3-2.9) L 09/07/21 04:07 [place] # (Auto) 0.7 x10^3/uL (0.3-0.8) 09/07/21 04:07 Eos # (Auto) 0.0 x10^3/uL (0.0-0.2) 09/07/21 04:07 Baso # (Auto) 0.0 X10^3/uL (0.0-0.1) 09/07/21 04:07 Absolute Nucleated RBC 0.1 /100WBC 09/07/21 04:07 D-Dimer 1.79 ug/ml (0.0-0.57) H* 09/05/21 08:19 Sample Site Lrad 09/06/21 05:50 ABG pH 7.370 (7.35-7.45) 09/06/21 05:50 ABG pCO2 41.0 mmHg (35.0-45.0) 09/06/21 05:50 ABG pO2 75.0 mmHg (80.0-100.0) L 09/06/21 05:50 ABG HCO3 23.7 mmol/L (22-26) 09/06/21 05:50 ABG O2 Saturation 94.0 % (90-100) 09/06/21 05:50 ABG Base Excess -1.5 mmol/L (-2.0-2.0) 09/06/21 05:50 Mir Test Pos 09/06/21 05:50 A-a Gradient 373.0 mmHg 09/06/21 05:50 FiO2 70.0 09/06/21 05:50 Blood Gas Comments Brian well ms 09/06/21 05:50 Sodium 140 mmol/L (136-145) 09/07/21 04:07 Corrected Sodium 141 mmol/L (136-145) 09/07/21 04:07 Potassium 4.6 mmol/L (3.5-5.1) 09/07/21 04:07 Chloride 104 mmol/L (98-107) 09/07/21 04:07 Carbon Dioxide 24.1 mmol/L (21-32) 09/07/21 04:07 BUN 66 mg/dL (7-18) H 09/07/21 04:07 Creatinine 1.77 mg/dL (0.70-1.30) H 09/07/21 04:07 Est GFR (MDRD) Af Amer 48 (>60) L 09/07/21 04:07 Est GFR (MDRD) Non-Af 40 (>60) L 09/07/21 04:07 Glucose 159 mg/dL (65-99) H 09/07/21 04:07 POC Glucose (mg/dL) 241 mg/dL (65-99) H 09/07/21 11:50 Calcium 8.8 mg/dL (8.5-10.1) 09/07/21 04:07 Corrected Calcium 10.2 mg/dL (8.5-10.1) H 09/07/21 04:07 Total Bilirubin 0.40 mg/dL (0.2-1.0) 09/07/21 04:07 AST 57 Units/L (15-37) H 09/07/21 04:07 ALT 38 Units/L (12-78) 09/07/21 04:07 Alkaline Phosphatase 89 Units/L (46-116) 09/07/21 04:07 C-Reactive Protein 167.50 mg/L (0-3.0) H 09/07/21 04:07 Total Protein 7.4 g/dL (6.4-8.2) 09/07/21 04:07 Albumin 2.2 g/dL (3.4-5.0) L 09/07/21 04:07 Globulin 5.2 g/dL (2.5-4.5) H 09/07/21 04:07 Albumin/Globulin Ratio 0.4 Ratio (1.1-2.1) L 09/07/21 04:07 SARS-CoV-2 (PCR) Positive (NEGATIVE) A 09/05/21 08:40 Influenza Type A (PCR) Negative (NEGATIVE) 09/05/21 08:40 Influenza Type B (PCR) Negative (NEGATIVE) 09/05/21 08:40 RSV (PCR) Negative (NEGATIVE) 09/05/21 08:40 Plan (1) COVID-19: Status: Acute Plan: Pneumonia protocol (2) Chronic obstructive pulmonary disease with acute respiratory distress: Status: Acute (3) Acute renal failure: Status: Acute (4) Dehydration: Status: Acute
[2021-09-07] MEDS ORDERED: NS 100 ML IV + SPIKE MINIBAG* 100 ML IV ONE (19:26)
[2021-09-07] MEDS: ZyrTEC TAB 10 MG PO SCH (20:01)
[2021-09-07] MEDS: SNACK - Diabetic Appropriate PO SCH (21:25)
[2021-09-08] MEDS: ASCORBIC ACID INJ MULTI-DOSE VIAL 1,500 MG in NS 100 ML IV 100 ML IV SCH ×2 (03:00→08:08)
[2021-09-08] MEDS: SOLU-Medrol 40 MG VIAL IVP SCH ×3 (06:00→21:56)
[2021-09-08] MEDS: ZOSYN VIAL 3.375 GRAMS 3.375 G in NS 100 ML IV + SPIKE MINIBAG* 100 ML IV SCH ×3 (06:00→21:56)
[2021-09-08 06:38] LABS: BASOPHILS % (AUTO) 0.1 % (0.2-1.0); HEMATOCRIT 38.4 % (42.0-54.0); HEMOGLOBIN 13.1 g/dL (13.5-18.0); LYMPHOCYTES # (AUTO) 0.8 X10^3/uL (1.3-2.9); LYMPHOCYTES % (AUTO) 8.2 % (21.0-51.0); MEAN CORPUSCULAR HEMOGLOBIN 31.1 pg (27.0-34.0); MEAN CORPUSCULAR HGB CONC 34.2 g/dL (33.0-35.0); MONOCYTES # (AUTO) 0.7 x10^3/uL (0.3-0.8); MONOCYTES % (AUTO) 7.1 % (0.0-13.0); NEUTROPHILS # (AUTO) 8.6 x10^3/uL (2.2-4.8); NEUTROPHILS % (AUTO) 84.6 % (42.0-75.0); RED BLOOD COUNT 4.21 X10^6/uL (4.7-6.0); RED CELL DISTRIBUTION WIDTH 14.3 % (11.6-16.5); WHITE BLOOD COUNT 10.2 X10^3/uL (3.6-10.0)
[2021-09-08 06:47] LABS: ALANINE AMINOTRANSFERASE 35 Units/L (12-78); ALBUMIN 2.3 g/dL (3.4-5.0); ALKALINE PHOSPHATASE 105 Units/L (46-116); ASPARTATE AMINO TRANSFERASE 44 Units/L (15-37); BLOOD UREA NITROGEN 64 mg/dL (7-18); CALCIUM 8.4 mg/dL (8.5-10.1); CARBON DIOXIDE 25.4 mmol/L (21-32); CHLORIDE 104 mmol/L (98-107); COR CA(FOR HYPOALB) 9.8 mg/dL (8.5-10.1); CREATININE 1.89 mg/dL (0.70-1.30); SODIUM 140 mmol/L (136-145); TOTAL PROTEIN 7.7 g/dL (6.4-8.2); eGFR NON BLACK RACES 37 (>60)
--- NOTE | 2021-09-08 07:13 | RAD ---
HISTORYFollow-up COVID-19STUDYChest AP [id number] ent is status post median sternotomy and CABG. Heart is mildly enlarged. Bilateral alveolar infiltrates involving most prominently the right upper lobe and perihilar regions of the left upper and left lower lobe are unchanged. No pneumothorax or pleural effusion is identified. Bony thorax is unremarkable.IMPRESSIONNo significant change from the prior examinationElectronically signed by: NOBLE HOFF (Sep 08, 2021 07:12:29)
[2021-09-08] MEDS ORDERED: MUCOMYST (RESPIRATORY USE ONLY) ONE (08:00)
[2021-09-08] MEDS: PULMICORT NEB TX 0.5 MG NEB SCH ×2 (08:05→20:51)
[2021-09-08] MEDS: ACTOS PO SCH (08:07)
[2021-09-08] MEDS: SYNTHROID 75 mcg TAB PO SCH (08:08)
[2021-09-08] MEDS: ASPIRIN EC 81 MG PO SCH (08:08)
[2021-09-08] MEDS: ZINC SULFATE PO SCH ×2 (08:08→21:56)
[2021-09-08] MEDS: PLAVIX PO SCH (08:09)
[2021-09-08] MEDS: VITAMIN D3 125 mcg (5,000 UNITS) PO SCH (08:09)
[2021-09-08] MEDS: VIBRAMYCIN PO SCH ×2 (08:09→21:55)
[2021-09-08] MEDS: BROVANA IN SCH ×2 (08:10→20:51)
[2021-09-08] MEDS: LOPRESSOR TAB 50 MG PO SCH ×2 (08:10→21:56)
[2021-09-08] MEDS: REMDESIVIR 100 MG in NS 100 ML IV + SPIKE MINIBAG* 120 ML IV SCH (08:10)
[2021-09-08] MEDS: NEURONTIN CAP 300 MG PO SCH ×2 (08:10→21:56)
[2021-09-08] MEDS: LOPID PO SCH ×2 (08:11→21:56)
[2021-09-08] MEDS: HYDROCHLOROTHIAZIDE 12.5 MG CAP PO SCH (08:11)
[2021-09-08] MEDS: LOVENOX INJ 100 MG SYR SC SCH ×2 (08:11→21:57)
[2021-09-08] MEDS: FLONASE NASAL SPRAY ENOSTRIL SCH (08:11)
[2021-09-08] MEDS: CRESTOR TAB 10 MG PO SCH (08:11)
[2021-09-08] MEDS: HYTRIN PO SCH (08:11)
[2021-09-08] MEDS: PEPCID TAB 40 MG PO SCH (08:12)
[2021-09-08] MEDS: NYSTATIN POWDER TOP SCH ×2 (08:12→21:57)
[2021-09-08] MEDS: MUCOMYST (RESPIRATORY USE ONLY) NEB SCH ×2 (08:15→20:51)
[2021-09-08 09:32] LABS: ABG BASE EXCESS -1.5 mmol/L (-2.0-2.0); ABG HCO3 23.7 mmol/L (22-26)
[2021-09-08 09:33] LABS: ABG ALLEN TEST POS
--- NOTE | 2021-09-08 11:10 | PCM.PROG ---
Progress Note Progress Note for Day of Date of Exam: 09/08/21 Subjective Subjective: Pt is a 75 year old male past medical history of COPD(BL home O2 between 2-3L), Hypertension, DMT2, admitted for COVID-19 pneumonia and hypoxia. Pt has been vaccinated with J&J vaccine and has received Regen-COV outpatient. This morning pt symptoms appear to have worsened. His hypoxia has worsened as we are unable to place him back on heated high flow after his nightly BiPAP. Labs/imaging: Wbc 10.2, Hgb 13.1, Plt 268, Na 140, K 3.9, Creatinine 1.89, Glucose 69, CRP 138, Sputum culture NGTD. CXR was obtained that revealed: no significant change in bilateral pneumonia. Pt is currently on pneumonia protocol that includes: IVF NS@KVO ml/h, Solumedrol 40mg q8h, Remdesivir, scheduled [facility] hodilators Xopenex and Budesonide, Antibiotics: Zosyn, Full dose lovenox, immune supporting supplements, supplemental O2, SSI, I/S, Physical therapy, Respiratory therapy consult. Will give actemra 400mg x 1 dose as well as Diamox. Will continue to closely monitor and follow up labs/imaging. Time spent on clinical assessment, reviewing labs and imaging, decision making, and documentation greater than 45 minutes. Past Medical Family Social History Past Med/Fam/Surg Hx: No changes since H&P Allergies: Allergies adhesive tape Allergy (Verified 09/05/21 09:13) moxifloxacin [From Avelox] Allergy (Verified 09/05/21 09:13) Review of Systems ROS: No change since H&P Vital Signs and I&O's Vital Signs: Temperature 99.2 F Pulse Rate 87 Respiratory Rate 42 Blood Pressure 150/66 O2 Sat by Pulse Oximetry 87 Intake and Output: Intake & Output 09/05/21 09/06/21 09/07/21 09/08/21 23:59 23:59 23:59 23:59 Intake Total 2573 / 2573 4103 / 4103 2584 / 2584 625 / 625 Output Total 1200 / 1200 1650 / 1650 1775 / 1775 600 / 600 Balance 1373 / 1373 2453 / 2453 809 / 809 Physical Exam Oriented: Normal Eyes: Normal Ear: Normal Nose: Normal Throat: Normal Respiratory: Diminished and Rales Cardiovascular: Normal : Normal Auscultation: Bowel Sounds: Normal Tenderness: Normal Skin: Normal Musculoskeletal: Normal Psychiatric: Normal Mood Description: Calm and Appropriate Affect: Normal Speech Pattern: Clear and Appropriate Laboratory and Diagnostics Result Diagrams: 09/09/21 04:34 09/09/21 04:34 Labs: 09/05/21 08:23 Sputum - Expectorated Sputum Sputum Culture - Final 09/05/21 08:23 Sputum - Expectorated Sputum - Final Laboratory WBC 10.2 X10^3/uL (3.6-10.0) H 09/08/21 05:52 RBC 4.21 X10^6/uL (4.7-6.0) L 09/08/21 05:52 Hgb 13.1 g/dL (13.5-18.0) L 09/08/21 05:52 Hct 38.4 % (42.0-54.0) L 09/08/21 05:52 MCV 91.0 fL (80.0-100.0) 09/08/21 05:52 MCH 31.1 pg (27.0-34.0) 09/08/21 05:52 MCHC 34.2 g/dL (33.0-35.0) 09/08/21 05:52 RDW 14.3 % (11.6-16.5) 09/08/21 05:52 Plt Count 268 X10^3/uL (150.0-450.0) 09/08/21 05:52 MPV 9.0 fL (7.4-11.0) 09/08/21 05:52 Neut % (Auto) 84.6 % (42.0-75.0) H 09/08/21 05:52 Lymph % (Auto) 8.2 % (21.0-51.0) L 09/08/21 05:52 [place] % (Auto) 7.1 % (0.0-13.0) 09/08/21 05:52 Eos % (Auto) 0.0 % (0.9-2.9) L 09/08/21 05:52 Baso % (Auto) 0.1 % (0.2-1.0) L 09/08/21 05:52 Neut # (Auto) 8.6 x10^3/uL (2.2-4.8) H 09/08/21 05:52 Lymph # (Auto) 0.8 X10^3/uL (1.3-2.9) L 09/08/21 05:52 [place] # (Auto) 0.7 x10^3/uL (0.3-0.8) 09/08/21 05:52 Eos # (Auto) 0.0 x10^3/uL (0.0-0.2) 09/08/21 05:52 Baso # (Auto) 0.0 X10^3/uL (0.0-0.1) 09/08/21 05:52 Absolute Nucleated RBC 0.2 /100WBC 09/08/21 05:52 D-Dimer 1.79 ug/ml (0.0-0.57) H* 09/05/21 08:19 Sample Site Rr 09/08/21 09:25 ABG pH 7.370 (7.35-7.45) 09/08/21 09:25 ABG pCO2 41.0 mmHg (35.0-45.0) 09/08/21 09:25 ABG pO2 62.0 mmHg (80.0-100.0) L 09/08/21 09:25 ABG HCO3 23.7 mmol/L (22-26) 09/08/21 09:25 ABG O2 Saturation 91.0 % (90-100) 09/08/21 09:25 ABG Base Excess -1.5 mmol/L (-2.0-2.0) 09/08/21 09:25 Mir Test Pos 09/08/21 09:25 A-a Gradient 600.0 mmHg 09/08/21 09:25 FiO2 100.0 09/08/21 09:25 Blood Gas Comments Pt bryson well. sd 09/08/21 09:25 Sodium 140 mmol/L (136-145) 09/08/21 05:52 Corrected Sodium TNP 09/08/21 05:52 Potassium 3.9 mmol/L (3.5-5.1) 09/08/21 05:52 Chloride 104 mmol/L (98-107) 09/08/21 05:52 Carbon Dioxide 25.4 mmol/L (21-32) 09/08/21 05:52 BUN 64 mg/dL (7-18) H 09/08/21 05:52 Creatinine 1.89 mg/dL (0.70-1.30) H 09/08/21 05:52 Est GFR (MDRD) Af Amer 45 (>60) L 09/08/21 05:52 Est GFR (MDRD) Non-Af 37 (>60) L 09/08/21 05:52 Glucose 69 mg/dL (65-99) 09/08/21 05:52 POC Glucose (mg/dL) 185 mg/dL (65-99) H 09/07/21 19:49 Calcium 8.4 mg/dL (8.5-10.1) L 09/08/21 05:52 Corrected Calcium 9.8 mg/dL (8.5-10.1) 09/08/21 05:52 Total Bilirubin 0.40 mg/dL (0.2-1.0) 09/08/21 05:52 AST 44 Units/L (15-37) H 09/08/21 05:52 ALT 35 Units/L (12-78) 09/08/21 05:52 Alkaline Phosphatase 105 Units/L (46-116) 09/08/21 05:52 C-Reactive Protein 138.50 mg/L (0-3.0) H 09/08/21 05:52 Total Protein 7.7 g/dL (6.4-8.2) 09/08/21 05:52 Albumin 2.3 g/dL (3.4-5.0) L 09/08/21 05:52 Globulin 5.4 g/dL (2.5-4.5) H 09/08/21 05:52 Albumin/Globulin Ratio 0.4 Ratio (1.1-2.1) L 09/08/21 05:52 SARS-CoV-2 (PCR) Positive (NEGATIVE) A 09/05/21 08:40 Influenza Type A (PCR) Negative (NEGATIVE) 09/05/21 08:40 Influenza Type B (PCR) Negative (NEGATIVE) 09/05/21 08:40 RSV (PCR) Negative (NEGATIVE) 09/05/21 08:40 Plan (1) COVID-19: Status: Acute Plan: Pneumonia protocol (2) Chronic obstructive pulmonary disease with acute respiratory distress: Status: Acute (3) Acute renal failure: Status: Acute (4) Dehydration: Status: Acute
[2021-09-08] MEDS ORDERED: ACTEMRA 400 MG in NS 100 ML IV 80 ML IV NR (12:30)
[2021-09-08] MEDS: NS 1,000 ML IV 1,000 ML IV SCH (15:37)
[2021-09-08] MEDS ORDERED: DIAMOX PO NR (17:00)
[2021-09-08] MEDS: DIAMOX PO ONE ×2 (17:35→17:39)
[2021-09-08] MEDS: SNACK - Diabetic Appropriate PO SCH (20:00)
[2021-09-08] MEDS: ZyrTEC TAB 10 MG PO SCH (21:55)
[2021-09-08] MEDS: NovoLIN R (or HumuLIN R) SUBCUT PRN (22:05)
[2021-09-08] MEDS: TUSSIONEX PENNKINETIC SUSP PO PRN (22:25)
[2021-09-09 05:04] LABS: BASOPHILS % (AUTO) 0.2 % (0.2-1.0); EOSINOPHILS % (AUTO) 0.1 % (0.9-2.9); HEMATOCRIT 35.3 % (42.0-54.0); HEMOGLOBIN 11.8 g/dL (13.5-18.0); LYMPHOCYTES # (AUTO) 0.3 X10^3/uL (1.3-2.9); LYMPHOCYTES % (AUTO) 5.8 % (21.0-51.0); MEAN CORPUSCULAR HEMOGLOBIN 30.6 pg (27.0-34.0); MEAN CORPUSCULAR HGB CONC 33.5 g/dL (33.0-35.0); MEAN CORPUSCULAR VOLUME 91.3 fL (80.0-100.0); MEAN PLATELET VOLUME 9.3 fL (7.4-11.0); MONOCYTES # (AUTO) 0.3 x10^3/uL (0.3-0.8); NEUTROPHILS # (AUTO) 5.1 x10^3/uL (2.2-4.8); NEUTROPHILS % (AUTO) 88.9 % (42.0-75.0); RED BLOOD COUNT 3.87 X10^6/uL (4.7-6.0); RED CELL DISTRIBUTION WIDTH 14.6 % (11.6-16.5); WHITE BLOOD COUNT 5.7 X10^3/uL (3.6-10.0)
[2021-09-09 05:18] LABS: CALCIUM 8.3 mg/dL (8.5-10.1); CARBON DIOXIDE 22.1 mmol/L (21-32); COR CA(FOR HYPOALB) 9.9 mg/dL (8.5-10.1); CREATININE 2.02 mg/dL (0.70-1.30); TOTAL PROTEIN 7.1 g/dL (6.4-8.2)
[2021-09-09] MEDS: ZOSYN VIAL 3.375 GRAMS 3.375 G in NS 100 ML IV + SPIKE MINIBAG* 100 ML IV SCH ×3 (06:20→21:40)
[2021-09-09] MEDS: SOLU-Medrol 40 MG VIAL IVP SCH ×3 (06:20→21:40)
--- NOTE | 2021-09-09 06:43 | RAD ---
HISTORYFollow-up COVID-19STUDYChest AP [id number] ent is status post median sternotomy and CABG. Heart remains mildly enlarged. Diffuse bilateral alveolar infiltrates most prominently involving the right upper lobe and left perihilar region and left lower lobe are unchanged. No pneumothorax or pleural effusion is identified. Bony thorax is unremarkable.IMPRESSIONNo change bilateral infiltrates as described above when compared to the prior examinationElectronically signed by: NOBLE HOFF (Sep 09, 2021 06:41:40)
[2021-09-09] MEDS: ASCORBIC ACID INJ MULTI-DOSE VIAL 1,500 MG in NS 100 ML IV 100 ML IV SCH (09:08)
[2021-09-09] MEDS: ASPIRIN EC 81 MG PO SCH (09:08)
[2021-09-09] MEDS: SYNTHROID 75 mcg TAB PO SCH (09:08)
[2021-09-09] MEDS: ACTOS PO SCH (09:08)
[2021-09-09] MEDS: VITAMIN D3 125 mcg (5,000 UNITS) PO SCH (09:08)
[2021-09-09] MEDS: ZINC SULFATE PO SCH ×2 (09:08→21:40)
[2021-09-09] MEDS: HYTRIN PO SCH (09:09)
[2021-09-09] MEDS: PEPCID TAB 40 MG PO SCH (09:09)
[2021-09-09] MEDS: HYDROCHLOROTHIAZIDE 12.5 MG CAP PO SCH (09:09)
[2021-09-09] MEDS: PLAVIX PO SCH (09:09)
[2021-09-09] MEDS: VIBRAMYCIN PO SCH ×2 (09:09→21:40)
[2021-09-09] MEDS: LOVENOX INJ 100 MG SYR SC SCH ×2 (09:10→22:45)
[2021-09-09] MEDS: NEURONTIN CAP 300 MG PO SCH ×2 (09:10→21:40)
[2021-09-09] MEDS: NYSTATIN POWDER TOP SCH ×2 (09:10→21:40)
[2021-09-09] MEDS: FLONASE NASAL SPRAY ENOSTRIL SCH (09:11)
[2021-09-09] MEDS: NS 1,000 ML IV 1,000 ML IV SCH ×2 (09:11→12:10)
[2021-09-09] MEDS: LOPID PO SCH ×2 (09:11→22:34)
[2021-09-09] MEDS: CRESTOR TAB 10 MG PO SCH (09:11)
[2021-09-09] MEDS: LOPRESSOR TAB 50 MG PO SCH ×2 (09:11→21:40)
[2021-09-09] MEDS: MUCOMYST (RESPIRATORY USE ONLY) NEB SCH ×2 (09:21→20:35)
[2021-09-09] MEDS: PULMICORT NEB TX 0.5 MG NEB SCH ×2 (09:21→20:35)
[2021-09-09] MEDS: BROVANA IN SCH ×2 (09:21→20:35)
[2021-09-09] MEDS: REMDESIVIR 100 MG in NS 100 ML IV + SPIKE MINIBAG* 120 ML IV SCH (09:39)
--- NOTE | 2021-09-09 16:14 | PCM.PROG ---
Progress Note Progress Note for Day of Date of Exam: 09/09/21 Subjective Subjective: Pt is a 75 year old male past medical history of COPD(BL home O2 between 2-3L), Hypertension, DMT2, admitted for COVID-19 pneumonia and hypoxia. Pt has been vaccinated with J&J vaccine, received Regen-COV outpatient. Pt is in bed comfortably requiring BiPAP. Per RT, he is only able to tolerate HHF during meals during which his oxygen saturations drop into the 60s-70s. Labs/imaging: Wbc 5.7, Hgb 11.8, Plt 256, Na 141, K 4.0, Creatinine 2.02, Glucose 186, CRP 138>245, Sputum culture NGTD. CXR was obtained that revealed: no significant change in bilateral pneumonia. Pt is currently on pneumonia protocol that includes: IVF NS@KVO ml/h, Solumedrol 40mg q8h, Remdesivir, scheduled Bronchodi lators Xopenex and Budesonide, Antibiotics: Zosyn, Full dose lovenox, Actemra x 1, immune supporting supplements, supplemental O2, SSI, I/S, Physical therapy, Respiratory therapy consult. Will order smart vest. Otherwise, continue with current treatment plan. Monitor closely and follow up labs/imaging. Time spent on clinical assessment, reviewing labs and imaging, decision making, and documentation greater than 45 minutes. Past Medical Family Social History Past Med/Fam/Surg Hx: No changes since H&P Allergies: Allergies adhesive tape Allergy (Verified 09/05/21 09:13) moxifloxacin [From Avelox] Allergy (Verified 09/05/21 09:13) Review of Systems ROS: No change since H&P Vital Signs and I&O's Vital Signs: Temperature 97.9 F Pulse Rate 79 Respiratory Rate 54 Blood Pressure 162/70 O2 Sat by Pulse Oximetry 92 Intake and Output: Intake & Output 09/06/21 09/07/21 09/08/21 09/09/21 23:59 23:59 23:59 23:59 Intake Total 4103 / 4103 2584 / 2584 2165 / 2165 2290 / 2290 Output Total 1650 / 1650 1775 / 1775 1900 / 1900 1300 / 1300 Balance 2453 / 2453 809 / 809 265 / 265 990 / 990 Physical Exam Oriented: Normal Eyes: Normal Ear: Normal Nose: Normal Throat: Normal Respiratory: Diminished and Rales Cardiovascular: Normal : Normal Auscultation: Bowel Sounds: Normal Tenderness: Normal Skin: Normal Musculoskeletal: Normal Psychiatric: Normal Mood Description: Calm and Appropriate Affect: Normal Speech Pattern: Clear and Appropriate Laboratory and Diagnostics Result Diagrams: 09/09/21 04:34 09/09/21 04:34 Labs: 09/05/21 08:23 Sputum - Expectorated Sputum Sputum Culture - Final 09/05/21 08:23 Sputum - Expectorated Sputum - Final Laboratory WBC 5.7 X10^3/uL (3.6-10.0) 09/09/21 04:34 RBC 3.87 X10^6/uL (4.7-6.0) L 09/09/21 04:34 Hgb 11.8 g/dL (13.5-18.0) L 09/09/21 04:34 Hct 35.3 % (42.0-54.0) L 09/09/21 04:34 MCV 91.3 fL (80.0-100.0) 09/09/21 04:34 MCH 30.6 pg (27.0-34.0) 09/09/21 04:34 MCHC 33.5 g/dL (33.0-35.0) 09/09/21 04:34 RDW 14.6 % (11.6-16.5) 09/09/21 04:34 Plt Count 256 X10^3/uL (150.0-450.0) 09/09/21 04:34 MPV 9.3 fL (7.4-11.0) 09/09/21 04:34 Neut % (Auto) 88.9 % (42.0-75.0) H 09/09/21 04:34 Lymph % (Auto) 5.8 % (21.0-51.0) L 09/09/21 04:34 [place] % (Auto) 5.0 % (0.0-13.0) 09/09/21 04:34 Eos % (Auto) 0.1 % (0.9-2.9) L 09/09/21 04:34 Baso % (Auto) 0.2 % (0.2-1.0) 09/09/21 04:34 Neut # (Auto) 5.1 x10^3/uL (2.2-4.8) H 09/09/21 04:34 Lymph # (Auto) 0.3 X10^3/uL (1.3-2.9) L 09/09/21 04:34 [place] # (Auto) 0.3 x10^3/uL (0.3-0.8) 09/09/21 04:34 Eos # (Auto) 0.0 x10^3/uL (0.0-0.2) 09/09/21 04:34 Baso # (Auto) 0.0 X10^3/uL (0.0-0.1) 09/09/21 04:34 Absolute Nucleated RBC 0.1 /100WBC 09/09/21 04:34 D-Dimer 1.79 ug/ml (0.0-0.57) H* 09/05/21 08:19 Sample Site Rr 09/08/21 09:25 ABG pH 7.370 (7.35-7.45) 09/08/21 09:25 ABG pCO2 41.0 mmHg (35.0-45.0) 09/08/21 09:25 ABG pO2 62.0 mmHg (80.0-100.0) L 09/08/21 09:25 ABG HCO3 23.7 mmol/L (22-26) 09/08/21 09:25 ABG O2 Saturation 91.0 % (90-100) 09/08/21 09:25 ABG Base Excess -1.5 mmol/L (-2.0-2.0) 09/08/21 09:25 Mir Test Pos 09/08/21 09:25 A-a Gradient 600.0 mmHg 09/08/21 09:25 FiO2 100.0 09/08/21 09:25 Blood Gas Comments Pt bryson well. sd 09/08/21 09:25 Sodium 141 mmol/L (136-145) 09/09/21 04:34 Corrected Sodium 143 mmol/L (136-145) 09/09/21 04:34 Potassium 4.0 mmol/L (3.5-5.1) 09/09/21 04:34 Chloride 107 mmol/L (98-107) 09/09/21 04:34 Carbon Dioxide 22.1 mmol/L (21-32) 09/09/21 04:34 BUN 69 mg/dL (7-18) H 09/09/21 04:34 Creatinine 2.02 mg/dL (0.70-1.30) H 09/09/21 04:34 Est GFR (MDRD) Af Amer 42 (>60) L 09/09/21 04:34 Est GFR (MDRD) Non-Af 34 (>60) L 09/09/21 04:34 Glucose 186 mg/dL (65-99) H 09/09/21 04:34 POC Glucose (mg/dL) 203 mg/dL (65-99) H 09/09/21 12:01 Calcium 8.3 mg/dL (8.5-10.1) L 09/09/21 04:34 Corrected Calcium 9.9 mg/dL (8.5-10.1) 09/09/21 04:34 Total Bilirubin 0.40 mg/dL (0.2-1.0) 09/09/21 04:34 AST 45 Units/L (15-37) H 09/09/21 04:34 ALT 26 Units/L (12-78) 09/09/21 04:34 Alkaline Phosphatase 124 Units/L (46-116) H 09/09/21 04:34 C-Reactive Protein 245.40 mg/L (0-3.0) H 09/09/21 04:34 Total Protein 7.1 g/dL (6.4-8.2) 09/09/21 04:34 Albumin 2.0 g/dL (3.4-5.0) L 09/09/21 04:34 Globulin 5.1 g/dL (2.5-4.5) H 09/09/21 04:34 Albumin/Globulin Ratio 0.4 Ratio (1.1-2.1) L 09/09/21 04:34 SARS-CoV-2 (PCR) Positive (NEGATIVE) A 09/05/21 08:40 Influenza Type A (PCR) Negative (NEGATIVE) 09/05/21 08:40 Influenza Type B (PCR) Negative (NEGATIVE) 09/05/21 08:40 RSV (PCR) Negative (NEGATIVE) 09/05/21 08:40 Plan (1) COVID-19: Status: Acute Plan: Pneumonia protocol (2) Chronic obstructive pulmonary disease with acute respiratory distress: Status: Acute (3) Acute renal failure: Status: Acute (4) Dehydration: Status: Acute
[2021-09-09] MEDS ORDERED: BUTT CREAM (COMPOUND) ONE (17:44)
[2021-09-09] MEDS: SNACK - Diabetic Appropriate PO SCH (21:40)
[2021-09-09] MEDS: ZyrTEC TAB 10 MG PO SCH (21:40)
[2021-09-09] MEDS: TUSSIONEX PENNKINETIC SUSP PO PRN (22:44)
[2021-09-10] MEDS ORDERED: NS 100 ML IV + SPIKE MINIBAG* 100 ML IV ONE (05:04)
[2021-09-10 05:12] LABS: BASOPHILS % (AUTO) 0.2 % (0.2-1.0); EOSINOPHILS % (AUTO) 0.5 % (0.9-2.9); HEMOGLOBIN 12.5 g/dL (13.5-18.0); LYMPHOCYTES # (AUTO) 0.4 X10^3/uL (1.3-2.9); LYMPHOCYTES % (AUTO) 5.2 % (21.0-51.0); MEAN CORPUSCULAR HEMOGLOBIN 31.1 pg (27.0-34.0); MEAN CORPUSCULAR HGB CONC 33.8 g/dL (33.0-35.0); MEAN CORPUSCULAR VOLUME 91.8 fL (80.0-100.0); MEAN PLATELET VOLUME 9.4 fL (7.4-11.0); MONOCYTES # (AUTO) 0.4 x10^3/uL (0.3-0.8); MONOCYTES % (AUTO) 4.3 % (0.0-13.0); NEUTROPHILS # (AUTO) 7.4 x10^3/uL (2.2-4.8); NEUTROPHILS % (AUTO) 89.8 % (42.0-75.0); RED BLOOD COUNT 4.03 X10^6/uL (4.7-6.0); RED CELL DISTRIBUTION WIDTH 14.6 % (11.6-16.5); WHITE BLOOD COUNT 8.3 X10^3/uL (3.6-10.0)
[2021-09-10 05:22] LABS: ALBUMIN 2.1 g/dL (3.4-5.0); CALCIUM 8.8 mg/dL (8.5-10.1); CARBON DIOXIDE 25.3 mmol/L (21-32); COR CA(FOR HYPOALB) 10.3 mg/dL (8.5-10.1); CREATININE 1.71 mg/dL (0.70-1.30); TOTAL PROTEIN 7.3 g/dL (6.4-8.2)
[2021-09-10] MEDS: ZOSYN VIAL 3.375 GRAMS 3.375 G in NS 100 ML IV + SPIKE MINIBAG* 100 ML IV SCH ×3 (05:30→21:04)
[2021-09-10] MEDS: SOLU-Medrol 40 MG VIAL IVP SCH ×3 (05:50→21:03)
--- NOTE | 2021-09-10 07:26 | RAD ---
HISTORYCOVID+STUDYCHEST, 1 [id number]/13/2022.TECHNIQUEAP view of the chestFINDINGSStatus post median sternotomy. The cardiac silhouette is stably enlarged. Mediastinal contours appear stable. No significant change in diffuse bilateral airspace opacities. No definite pleural effusion or pneumothorax. Soft tissue attenuation limits evaluation.IMPRESSIONNo significant change.Electronically signed by: Ke Mckay (Sep 10, 2021 07:24:57)
[2021-09-10] MEDS ORDERED: MILK OF MAGNESIA PO ONE (08:38)
[2021-09-10] MEDS: TUSSIONEX PENNKINETIC SUSP PO PRN ×2 (09:00→16:30)
[2021-09-10] MEDS: ASCORBIC ACID INJ MULTI-DOSE VIAL 1,500 MG in NS 100 ML IV 100 ML IV SCH (09:26)
[2021-09-10] MEDS: ACTOS PO SCH (09:26)
[2021-09-10] MEDS: CRESTOR TAB 10 MG PO SCH (09:26)
[2021-09-10] MEDS: ASPIRIN EC 81 MG PO SCH (09:26)
[2021-09-10] MEDS: COLACE CAP 100 MG PO SCH (09:26)
[2021-09-10] MEDS: VITAMIN D3 125 mcg (5,000 UNITS) PO SCH (09:27)
[2021-09-10] MEDS: HYTRIN PO SCH (09:27)
[2021-09-10] MEDS: FLONASE NASAL SPRAY ENOSTRIL SCH (09:27)
[2021-09-10] MEDS: HYDROCHLOROTHIAZIDE 12.5 MG CAP PO SCH (09:27)
[2021-09-10] MEDS: ZINC SULFATE PO SCH ×2 (09:27→20:51)
[2021-09-10] MEDS: VIBRAMYCIN PO SCH ×2 (09:28→20:52)
[2021-09-10] MEDS: SYNTHROID 75 mcg TAB PO SCH (09:28)
[2021-09-10] MEDS: REMDESIVIR 100 MG in NS 100 ML IV + SPIKE MINIBAG* 120 ML IV SCH (09:28)
[2021-09-10] MEDS: LOPID PO SCH ×2 (09:28→20:50)
[2021-09-10] MEDS: PLAVIX PO SCH (09:28)
[2021-09-10] MEDS: LOPRESSOR TAB 50 MG PO SCH ×2 (09:29→20:50)
[2021-09-10] MEDS: BROVANA IN SCH ×2 (09:31→21:00)
[2021-09-10] MEDS: PULMICORT NEB TX 0.5 MG NEB SCH ×2 (09:31→21:00)
[2021-09-10] MEDS: MUCOMYST (RESPIRATORY USE ONLY) NEB SCH ×2 (09:31→21:00)
[2021-09-10] MEDS: LOVENOX INJ 100 MG SYR SC SCH ×2 (09:53→20:53)
[2021-09-10] MEDS: PEPCID TAB 40 MG PO SCH (09:53)
[2021-09-10] MEDS: NYSTATIN POWDER TOP SCH ×2 (09:53→20:52)
[2021-09-10] MEDS: NEURONTIN CAP 300 MG PO SCH ×2 (09:53→20:51)
[2021-09-10] MEDS: NS 1,000 ML IV 1,000 ML IV SCH (11:31)
--- NOTE | 2021-09-10 13:07 | PCM.PROG ---
Progress Note Progress Note for Day of Date of Exam: 09/10/21 Subjective Subjective: Pt is a 75 year old male past medical history of COPD(BL home O2 between 2-3L), Hypertension, DMT2, admitted for COVID-19 pneumonia and hypoxia. Pt has been vaccinated with J&J vaccine, received Regen-COV outpatient. This morning patient is in bed requiring BiPAP support. Per nursing, his oxygen saturations drop into the 60s-70s when on heated high flow oxygen during meals. Labs/imaging: Wbc 8.3, Hgb 12.5, Plt 284, Na 143, K 4.5, Creatinine 1.71, Glucose 147, CRP 245>140, Sputum culture NGTD. CXR was obtained that revealed: no significant change in bilateral pneumonia. Pt is currently on pneumonia protocol that includes: IVF NS@KVO ml/h, Solumedrol 40mg q8h, Remdesivir, scheduled Bronchodilators Xopenex and Budesonide, Antibiotics: Zosyn, Full dose lovenox, Actemra x 1, immune supporting supplements, supplemental O2, SSI, I/S, Physical therapy, Respiratory therapy consult, Smart vest. Will continue with current treatment plan. Monitor closely and follow up labs/imaging. Time spent on clinical assessment, reviewing labs and imaging, decision making, and documentation greater than 45 minutes. Past Medical Family Social History Past Med/Fam/Surg Hx: No changes since H&P Allergies: Allergies adhesive tape Allergy (Verified 09/05/21 09:13) moxifloxacin [From Avelox] Allergy (Verified 09/05/21 09:13) Review of Systems ROS: No change since H&P Vital Signs and I&O's Vital Signs: Temperature 97.9 F Pulse Rate 97 Respiratory Rate 44 Blood Pressure 144/96 O2 Sat by Pulse Oximetry 88 Intake and Output: Intake & Output 09/07/21 09/08/21 09/09/21 09/10/21 23:59 23:59 23:59 23:59 Intake Total 2584 / 2584 2165 / 2165 2490 / 2490 575 / 575 Output Total 1775 / 1775 1900 / 1900 1875 / 1875 500 / 500 Balance 809 / 809 265 / 265 615 / 615 75 / 75 Physical Exam Oriented: Normal Eyes: Normal Ear: Normal Nose: Normal Throat: Normal Respiratory: Diminished and Rales Cardiovascular: Normal : Normal Auscultation: Bowel Sounds: Normal Tenderness: Normal Skin: Normal Musculoskeletal: Normal Psychiatric: Normal Mood Description: Calm and Appropriate Affect: Normal Speech Pattern: Clear and Appropriate Laboratory and Diagnostics Result Diagrams: 09/10/21 04:50 09/10/21 04:50 Labs: 09/05/21 08:23 Sputum - Expectorated Sputum Sputum Culture - Final 09/05/21 08:23 Sputum - Expectorated Sputum - Final Laboratory WBC 8.3 X10^3/uL (3.6-10.0) 09/10/21 04:50 RBC 4.03 X10^6/uL (4.7-6.0) L 09/10/21 04:50 Hgb 12.5 g/dL (13.5-18.0) L 09/10/21 04:50 Hct 37.0 % (42.0-54.0) L 09/10/21 04:50 MCV 91.8 fL (80.0-100.0) 09/10/21 04:50 MCH 31.1 pg (27.0-34.0) 09/10/21 04:50 MCHC 33.8 g/dL (33.0-35.0) 09/10/21 04:50 RDW 14.6 % (11.6-16.5) 09/10/21 04:50 Plt Count 284 X10^3/uL (150.0-450.0) 09/10/21 04:50 MPV 9.4 fL (7.4-11.0) 09/10/21 04:50 Neut % (Auto) 89.8 % (42.0-75.0) H 09/10/21 04:50 Lymph % (Auto) 5.2 % (21.0-51.0) L 09/10/21 04:50 [place] % (Auto) 4.3 % (0.0-13.0) 09/10/21 04:50 Eos % (Auto) 0.5 % (0.9-2.9) L 09/10/21 04:50 Baso % (Auto) 0.2 % (0.2-1.0) 09/10/21 04:50 Neut # (Auto) 7.4 x10^3/uL (2.2-4.8) H 09/10/21 04:50 Lymph # (Auto) 0.4 X10^3/uL (1.3-2.9) L 09/10/21 04:50 Hardy # (Auto) 0.4 x10^3/uL (0.3-0.8) 09/10/21 04:50 Eos # (Auto) 0.0 x10^3/uL (0.0-0.2) 09/10/21 04:50 Baso # (Auto) 0.0 X10^3/uL (0.0-0.1) 09/10/21 04:50 Absolute Nucleated RBC 0.1 /100WBC 09/10/21 04:50 D-Dimer 1.79 ug/ml (0.0-0.57) H* 09/05/21 08:19 Sample Site Rr 09/08/21 09:25 ABG pH 7.370 (7.35-7.45) 09/08/21 09:25 ABG pCO2 41.0 mmHg (35.0-45.0) 09/08/21 09:25 ABG pO2 62.0 mmHg (80.0-100.0) L 09/08/21 09:25 ABG HCO3 23.7 mmol/L (22-26) 09/08/21 09:25 ABG O2 Saturation 91.0 % (90-100) 09/08/21 09:25 ABG Base Excess -1.5 mmol/L (-2.0-2.0) 09/08/21 09:25 Mir Test Pos 09/08/21 09:25 A-a Gradient 600.0 mmHg 09/08/21 09:25 FiO2 100.0 09/08/21 09:25 Blood Gas Comments Pt bryson well. sd 09/08/21 09:25 Sodium 143 mmol/L (136-145) 09/10/21 04:50 Corrected Sodium 144 mmol/L (136-145) 09/10/21 04:50 Potassium 4.5 mmol/L (3.5-5.1) 09/10/21 04:50 Chloride 109 mmol/L (98-107) H 09/10/21 04:50 Carbon Dioxide 25.3 mmol/L (21-32) 09/10/21 04:50 BUN 64 mg/dL (7-18) H 09/10/21 04:50 Creatinine 1.71 mg/dL (0.70-1.30) H 09/10/21 04:50 Est GFR (MDRD) Af Amer 50 (>60) L 09/10/21 04:50 Est GFR (MDRD) Non-Af 42 (>60) L 09/10/21 04:50 Glucose 147 mg/dL (65-99) H 09/10/21 04:50 POC Glucose (mg/dL) 236 mg/dL (65-99) H 09/10/21 12:32 Calcium 8.8 mg/dL (8.5-10.1) 09/10/21 04:50 Corrected Calcium 10.3 mg/dL (8.5-10.1) H 09/10/21 04:50 Total Bilirubin 0.40 mg/dL (0.2-1.0) 09/10/21 04:50 AST 44 Units/L (15-37) H 09/10/21 04:50 ALT 24 Units/L (12-78) 09/10/21 04:50 Alkaline Phosphatase 222 Units/L (46-116) H 09/10/21 04:50 C-Reactive Protein 140.10 mg/L (0-3.0) H 09/10/21 04:50 Total Protein 7.3 g/dL (6.4-8.2) 09/10/21 04:50 Albumin 2.1 g/dL (3.4-5.0) L 09/10/21 04:50 Globulin 5.2 g/dL (2.5-4.5) H 09/10/21 04:50 Albumin/Globulin Ratio 0.4 Ratio (1.1-2.1) L 09/10/21 04:50 SARS-CoV-2 (PCR) Positive (NEGATIVE) A 09/05/21 08:40 Influenza Type A (PCR) Negative (NEGATIVE) 09/05/21 08:40 Influenza Type B (PCR) Negative (NEGATIVE) 09/05/21 08:40 RSV (PCR) Negative (NEGATIVE) 09/05/21 08:40 Plan (1) COVID-19: Status: Acute Plan: Pneumonia protocol (2) Chronic obstructive pulmonary disease with acute respiratory distress: Status: Acute (3) Acute renal failure: Status: Acute (4) Dehydration: Status: Acute
[2021-09-10] MEDS: PROVENTIL NEB TX 0.083% 2.5MG/ 3ML IN PRN (15:33)
[2021-09-10] MEDS: SNACK - Diabetic Appropriate PO SCH (20:25)
[2021-09-10] MEDS: ZyrTEC TAB 10 MG PO SCH (20:51)
[2021-09-10] MEDS: ZOFRAN INJ 4 MG VIAL IVP PRN (21:35)
[2021-09-11 05:07] LABS: BASOPHILS % (AUTO) 0.1 % (0.2-1.0); EOSINOPHILS # (AUTO) 0.2 x10^3/uL (0.0-0.2); EOSINOPHILS % (AUTO) 1.1 % (0.9-2.9); HEMATOCRIT 39.2 % (42.0-54.0); HEMOGLOBIN 12.8 g/dL (13.5-18.0); LYMPHOCYTES # (AUTO) 0.3 X10^3/uL (1.3-2.9); LYMPHOCYTES % (AUTO) 2.4 % (21.0-51.0); MEAN CORPUSCULAR HEMOGLOBIN 30.1 pg (27.0-34.0); MEAN CORPUSCULAR HGB CONC 32.5 g/dL (33.0-35.0); MEAN CORPUSCULAR VOLUME 92.4 fL (80.0-100.0); MEAN PLATELET VOLUME 9.2 fL (7.4-11.0); MONOCYTES # (AUTO) 0.3 x10^3/uL (0.3-0.8); MONOCYTES % (AUTO) 2.1 % (0.0-13.0); NEUTROPHILS # (AUTO) 12.9 x10^3/uL (2.2-4.8); NEUTROPHILS % (AUTO) 94.3 % (42.0-75.0); RED BLOOD COUNT 4.24 X10^6/uL (4.7-6.0); WHITE BLOOD COUNT 13.7 X10^3/uL (3.6-10.0)
[2021-09-11] MEDS: SOLU-Medrol 40 MG VIAL IVP SCH ×3 (05:08→22:36)
[2021-09-11] MEDS: ZOSYN VIAL 3.375 GRAMS 3.375 G in NS 100 ML IV + SPIKE MINIBAG* 100 ML IV SCH ×3 (05:09→22:36)
[2021-09-11 05:17] LABS: ALBUMIN 2.1 g/dL (3.4-5.0); CALCIUM 8.7 mg/dL (8.5-10.1); COR CA(FOR HYPOALB) 10.2 mg/dL (8.5-10.1); CREATININE 1.75 mg/dL (0.70-1.30); TOTAL PROTEIN 6.9 g/dL (6.4-8.2)
[2021-09-11 05:57] LABS: BAND NEUTROPHILS % 7 % (0-10); PLATELET MORPHOLOGY COMMENT NORMAL (NORMAL)
[2021-09-11 06:18] LABS: ABG ALLEN TEST POS; ABG HCO3 24.7 mmol/L (22-26)
--- NOTE | 2021-09-11 06:46 | RAD ---
HISTORYCOVID PNEUMONIA HX: CAD SX: CABG, APPENDECTOMYSTUDYCHEST, 1 [id number] e bilateral interstitial and airspace opacities are mildly worsened; these are more marked in the mid to lower lungs. Cardiac silhouette size is stable. There is no evidence for large effusion or pneumothorax.IMPRESSIONWorsened diffuse lung opacities.Electronically signed by: DARLEEN DONATO (Sep 11, 2021 06:44:43)
[2021-09-11] MEDS: MUCOMYST (RESPIRATORY USE ONLY) NEB SCH ×2 (09:30→21:00)
[2021-09-11] MEDS: PULMICORT NEB TX 0.5 MG NEB SCH ×2 (09:30→21:00)
[2021-09-11] MEDS: BROVANA IN SCH ×2 (09:30→21:00)
[2021-09-11] MEDS: ASCORBIC ACID INJ MULTI-DOSE VIAL 1,500 MG in NS 100 ML IV 100 ML IV SCH (10:36)
[2021-09-11] MEDS: FLONASE NASAL SPRAY ENOSTRIL SCH (10:36)
[2021-09-11] MEDS: REMDESIVIR 100 MG in NS 100 ML IV + SPIKE MINIBAG* 120 ML IV SCH (10:36)
[2021-09-11] MEDS: LOVENOX INJ 100 MG SYR SC SCH ×2 (10:37→20:51)
[2021-09-11] MEDS: NYSTATIN POWDER TOP SCH ×2 (10:38→20:52)
[2021-09-11] MEDS: ZINC SULFATE PO SCH ×2 (10:40→20:51)
[2021-09-11] MEDS: VITAMIN D3 125 mcg (5,000 UNITS) PO SCH (10:40)
[2021-09-11] MEDS: PEPCID TAB 40 MG PO SCH (10:41)
[2021-09-11] MEDS: VIBRAMYCIN PO SCH ×2 (10:41→20:51)
[2021-09-11] MEDS: PLAVIX PO SCH (10:42)
[2021-09-11] MEDS: LOPRESSOR TAB 50 MG PO SCH ×2 (10:42→20:51)
[2021-09-11] MEDS: SYNTHROID 75 mcg TAB PO SCH (10:42)
[2021-09-11] MEDS: NEURONTIN CAP 300 MG PO SCH ×2 (10:42→20:52)
[2021-09-11] MEDS: HYDROCHLOROTHIAZIDE 12.5 MG CAP PO SCH (10:43)
[2021-09-11] MEDS: LOPID PO SCH ×2 (10:43→20:51)
[2021-09-11] MEDS: HYTRIN PO SCH (10:43)
[2021-09-11] MEDS: COLACE CAP 100 MG PO SCH (10:43)
[2021-09-11] MEDS: CRESTOR TAB 10 MG PO SCH (10:43)
[2021-09-11] MEDS: ASPIRIN EC 81 MG PO SCH (10:44)
[2021-09-11] MEDS: ACTOS PO SCH (10:44)
[2021-09-11] MEDS: NS 1,000 ML IV 1,000 ML IV SCH (11:15)
[2021-09-11] MEDS ORDERED: IVERMECTIN PO ONE (11:37)
[2021-09-11] MEDS: PROVENTIL NEB TX 0.083% 2.5MG/ 3ML IN PRN ×2 (11:50→17:17)
[2021-09-11] MEDS: DIFLUCAN PO SCH (13:10)
[2021-09-11] MEDS: ZyrTEC TAB 10 MG PO SCH (20:50)
[2021-09-11] MEDS: SNACK - Diabetic Appropriate PO SCH (20:50)
[2021-09-12] MEDS: SOLU-Medrol 40 MG VIAL IVP SCH (05:04)
[2021-09-12] MEDS: ZOSYN VIAL 3.375 GRAMS 3.375 G in NS 100 ML IV + SPIKE MINIBAG* 100 ML IV SCH ×3 (05:05→21:11)
[2021-09-12 05:34] LABS: BASOPHILS % (AUTO) 0.1 % (0.2-1.0); EOSINOPHILS % (AUTO) 0.1 % (0.9-2.9); HEMATOCRIT 34.8 % (42.0-54.0); HEMOGLOBIN 11.6 g/dL (13.5-18.0); LYMPHOCYTES # (AUTO) 0.3 X10^3/uL (1.3-2.9); LYMPHOCYTES % (AUTO) 2.9 % (21.0-51.0); MEAN CORPUSCULAR HEMOGLOBIN 30.5 pg (27.0-34.0); MEAN CORPUSCULAR HGB CONC 33.3 g/dL (33.0-35.0); MEAN CORPUSCULAR VOLUME 91.6 fL (80.0-100.0); MEAN PLATELET VOLUME 9.4 fL (7.4-11.0); MONOCYTES # (AUTO) 0.3 x10^3/uL (0.3-0.8); MONOCYTES % (AUTO) 2.7 % (0.0-13.0); NEUTROPHILS # (AUTO) 10.6 x10^3/uL (2.2-4.8); NEUTROPHILS % (AUTO) 94.2 % (42.0-75.0); RED CELL DISTRIBUTION WIDTH 14.7 % (11.6-16.5); WHITE BLOOD COUNT 11.2 X10^3/uL (3.6-10.0)
[2021-09-12 05:41] LABS: CALCIUM 8.6 mg/dL (8.5-10.1); COR CA(FOR HYPOALB) 10.2 mg/dL (8.5-10.1); CREATININE 1.66 mg/dL (0.70-1.30); TOTAL PROTEIN 6.8 g/dL (6.4-8.2)
[2021-09-12 06:11] LABS: BAND NEUTROPHILS % 7 % (0-10)
[2021-09-12 06:12] LABS: PLATELET MORPHOLOGY COMMENT NORMAL (NORMAL)
[2021-09-12] MEDS: NovoLIN R (or HumuLIN R) SUBCUT PRN ×3 (06:12→16:42)
[2021-09-12] MEDS: NS 1,000 ML IV 1,000 ML IV SCH ×2 (06:16→11:21)
[2021-09-12] MEDS: MUCOMYST (RESPIRATORY USE ONLY) NEB SCH ×2 (08:25→20:00)
[2021-09-12] MEDS: PULMICORT NEB TX 0.5 MG NEB SCH ×2 (08:25→20:00)
[2021-09-12] MEDS: BROVANA IN SCH ×2 (08:25→20:00)
[2021-09-12 08:30] VITALS: BMI 40.1
[2021-09-12] MEDS: ACTOS PO SCH (09:07)
[2021-09-12] MEDS: HYTRIN PO SCH (09:08)
[2021-09-12] MEDS: HYDROCHLOROTHIAZIDE 12.5 MG CAP PO SCH (09:08)
[2021-09-12] MEDS: ASPIRIN EC 81 MG PO SCH (09:08)
[2021-09-12] MEDS: PEPCID TAB 40 MG PO SCH (09:08)
[2021-09-12] MEDS: DIFLUCAN PO SCH (09:08)
[2021-09-12] MEDS: COLACE CAP 100 MG PO SCH (09:08)
[2021-09-12] MEDS: CRESTOR TAB 10 MG PO SCH (09:08)
[2021-09-12] MEDS: NYSTATIN POWDER TOP SCH ×2 (09:09→20:02)
[2021-09-12] MEDS: SYNTHROID 75 mcg TAB PO SCH (09:09)
[2021-09-12] MEDS: ZINC SULFATE PO SCH ×2 (09:09→20:02)
[2021-09-12] MEDS: VITAMIN D3 125 mcg (5,000 UNITS) PO SCH (09:09)
[2021-09-12] MEDS: PLAVIX PO SCH (09:09)
[2021-09-12] MEDS: NEURONTIN CAP 300 MG PO SCH ×2 (09:09→20:01)
[2021-09-12] MEDS: VIBRAMYCIN PO SCH (09:09)
[2021-09-12] MEDS: LOPRESSOR TAB 50 MG PO SCH ×2 (09:10→20:00)
[2021-09-12] MEDS: REMDESIVIR 100 MG in NS 100 ML IV + SPIKE MINIBAG* 120 ML IV SCH (09:10)
[2021-09-12] MEDS: LOVENOX INJ 100 MG SYR SC SCH ×2 (09:10→20:02)
[2021-09-12] MEDS: LOPID PO SCH ×2 (09:10→20:00)
[2021-09-12] MEDS: FLONASE NASAL SPRAY ENOSTRIL SCH (09:24)
[2021-09-12] MEDS: PROTONIX INJ 40 MG VIAL IVP SCH ×2 (10:03→20:01)
[2021-09-12] MEDS: ASCORBIC ACID INJ MULTI-DOSE VIAL 1,500 MG in NS 100 ML IV 100 ML IV SCH (10:03)
[2021-09-12] MEDS: DIFLUCAN 200 MG IV PREMIX* 200 MG/100 ML BAG IV SCH (10:30)
[2021-09-12] MEDS: SOLU-Medrol 125 MG VIAL IVP SCH ×2 (14:15→21:11)
[2021-09-12] MEDS: APRESOLINE INJ 20 MG VIAL IVP PRN (19:25)
[2021-09-12] MEDS: SNACK - Diabetic Appropriate PO SCH (20:00)
[2021-09-12] MEDS: ZyrTEC TAB 10 MG PO SCH (20:01)
[2021-09-13] MEDS: SOLU-Medrol 125 MG VIAL IVP SCH ×4 (05:04→20:41)
[2021-09-13] MEDS: ZOSYN VIAL 3.375 GRAMS 3.375 G in NS 100 ML IV + SPIKE MINIBAG* 100 ML IV SCH ×3 (05:04→21:13)
[2021-09-13 05:18] LABS: BASOPHILS % (AUTO) 0.1 % (0.2-1.0); HEMATOCRIT 36.5 % (42.0-54.0); HEMOGLOBIN 12.1 g/dL (13.5-18.0); LYMPHOCYTES # (AUTO) 0.5 X10^3/uL (1.3-2.9); LYMPHOCYTES % (AUTO) 3.1 % (21.0-51.0); MEAN CORPUSCULAR HEMOGLOBIN 30.1 pg (27.0-34.0); MEAN CORPUSCULAR HGB CONC 33.1 g/dL (33.0-35.0); MEAN CORPUSCULAR VOLUME 90.8 fL (80.0-100.0); MEAN PLATELET VOLUME 9.4 fL (7.4-11.0); MONOCYTES # (AUTO) 0.5 x10^3/uL (0.3-0.8); MONOCYTES % (AUTO) 3.2 % (0.0-13.0); NEUTROPHILS # (AUTO) 15.6 x10^3/uL (2.2-4.8); NEUTROPHILS % (AUTO) 93.6 % (42.0-75.0); RED BLOOD COUNT 4.02 X10^6/uL (4.7-6.0); RED CELL DISTRIBUTION WIDTH 14.8 % (11.6-16.5); WHITE BLOOD COUNT 16.7 X10^3/uL (3.6-10.0)
[2021-09-13 05:25] LABS: ALBUMIN 2.1 g/dL (3.4-5.0); CALCIUM 8.6 mg/dL (8.5-10.1); CARBON DIOXIDE 26.7 mmol/L (21-32); COR CA(FOR HYPOALB) 10.1 mg/dL (8.5-10.1); CREATININE 1.55 mg/dL (0.70-1.30); TOTAL PROTEIN 6.8 g/dL (6.4-8.2)
[2021-09-13 05:56] LABS: BAND NEUTROPHILS % 1 % (0-10); PLATELET MORPHOLOGY COMMENT NORMAL (NORMAL)
[2021-09-13] MEDS: PULMICORT NEB TX 0.5 MG NEB SCH ×2 (08:02→21:25)
[2021-09-13] MEDS: MUCOMYST (RESPIRATORY USE ONLY) NEB SCH ×2 (08:02→21:25)
[2021-09-13] MEDS: BROVANA IN SCH ×2 (08:02→21:25)
[2021-09-13] MEDS: LOVENOX INJ 100 MG SYR SC SCH ×2 (08:25→20:42)
[2021-09-13] MEDS: FLONASE NASAL SPRAY ENOSTRIL SCH (08:25)
[2021-09-13] MEDS: PROTONIX INJ 40 MG VIAL IVP SCH ×2 (08:26→20:44)
[2021-09-13] MEDS: ACTOS PO SCH (08:39)
[2021-09-13] MEDS: SYNTHROID 75 mcg TAB PO SCH (08:40)
[2021-09-13] MEDS: CRESTOR TAB 10 MG PO SCH (08:40)
[2021-09-13] MEDS: COLACE CAP 100 MG PO SCH (08:40)
[2021-09-13] MEDS: ASPIRIN EC 81 MG PO SCH (08:40)
[2021-09-13] MEDS: HYTRIN PO SCH (08:41)
[2021-09-13] MEDS: DIFLUCAN 200 MG IV PREMIX* 200 MG/100 ML BAG IV SCH (08:41)
[2021-09-13] MEDS: HYDROCHLOROTHIAZIDE 12.5 MG CAP PO SCH (08:41)
[2021-09-13] MEDS: LOPID PO SCH ×2 (08:42→20:40)
[2021-09-13] MEDS: LOPRESSOR TAB 50 MG PO SCH ×2 (08:42→20:40)
[2021-09-13] MEDS: NEURONTIN CAP 300 MG PO SCH ×2 (08:42→20:41)
[2021-09-13] MEDS: NS 1/2 1,000 ML IV 1,000 ML IV SCH ×2 (08:43→21:14)
[2021-09-13] MEDS ORDERED: NS 1/2 1,000 ML IV 1,000 ML IV ONE ×2 (08:46→21:13)
[2021-09-13] MEDS: PEPCID TAB 40 MG PO SCH (08:58)
[2021-09-13] MEDS: ASCORBIC ACID INJ MULTI-DOSE VIAL 1,500 MG in NS 100 ML IV 100 ML IV SCH (08:58)
[2021-09-13] MEDS: PLAVIX PO SCH (08:58)
[2021-09-13] MEDS: NYSTATIN POWDER TOP SCH ×2 (08:58→20:43)
[2021-09-13] MEDS: ZINC SULFATE PO SCH ×2 (08:59→20:41)
[2021-09-13] MEDS: VITAMIN D3 125 mcg (5,000 UNITS) PO SCH (08:59)
[2021-09-13] MEDS: TUSSIONEX PENNKINETIC SUSP PO PRN (09:00)
--- NOTE | 2021-09-13 10:50 | RAD ---
HISTORYCOVID+STUDYCHEST x-ray, 1 VIEWCOMPARISONX-ray 09/11/2021FINDINGSProminent bilateral lung infiltrates are similar to prior study. Patient has had prior cardiac surgery. Heart is normal in size. No pneumothorax or pleural effusion is seen.IMPRESSIONPersistent prominent bilateral pneumonia.Electronically signed by: Alvino Nunez (Sep 13, 2021 10:48:39)
[2021-09-13] MEDS: NovoLIN R (or HumuLIN R) SUBCUT PRN ×2 (13:04→17:10)
[2021-09-13] MEDS ORDERED: SOLU-Medrol 125 MG VIAL IVP SCH (14:00)
[2021-09-13] MEDS: APRESOLINE INJ 20 MG VIAL IVP PRN (15:48)
[2021-09-13] MEDS: PROVENTIL NEB TX 0.083% 2.5MG/ 3ML IN PRN (17:30)
[2021-09-13] MEDS ORDERED: SALINE 0.9% 3 ML NEB TX ONE (20:27)
[2021-09-13] MEDS: SNACK - Diabetic Appropriate PO SCH (20:40)
[2021-09-13] MEDS: ZyrTEC TAB 10 MG PO SCH (20:40)
[2021-09-14] MEDS: SOLU-Medrol 125 MG VIAL IVP SCH ×2 (02:42→08:55)
[2021-09-14] MEDS ORDERED: NS 100 ML IV + SPIKE MINIBAG* 100 ML IV ONE (04:13)
[2021-09-14 05:20] LABS: BASOPHILS # (AUTO) 0.1 X10^3/uL (0.0-0.1); BASOPHILS % (AUTO) 0.3 % (0.2-1.0); HEMATOCRIT 36.4 % (42.0-54.0); LYMPHOCYTES # (AUTO) 0.4 X10^3/uL (1.3-2.9); MEAN CORPUSCULAR HEMOGLOBIN 30.3 pg (27.0-34.0); MEAN CORPUSCULAR HGB CONC 33.1 g/dL (33.0-35.0); MEAN CORPUSCULAR VOLUME 91.6 fL (80.0-100.0); MEAN PLATELET VOLUME 9.5 fL (7.4-11.0); MONOCYTES # (AUTO) 0.8 x10^3/uL (0.3-0.8); MONOCYTES % (AUTO) 4.1 % (0.0-13.0); NEUTROPHILS # (AUTO) 18.5 x10^3/uL (2.2-4.8); NEUTROPHILS % (AUTO) 93.6 % (42.0-75.0); RED BLOOD COUNT 3.98 X10^6/uL (4.7-6.0); RED CELL DISTRIBUTION WIDTH 14.9 % (11.6-16.5); WHITE BLOOD COUNT 19.8 X10^3/uL (3.6-10.0)
[2021-09-14] MEDS: ZOSYN VIAL 3.375 GRAMS 3.375 G in NS 100 ML IV + SPIKE MINIBAG* 100 ML IV SCH (05:32)
[2021-09-14 05:36] LABS: ALBUMIN 2.1 g/dL (3.4-5.0); CALCIUM 8.6 mg/dL (8.5-10.1); CARBON DIOXIDE 27.2 mmol/L (21-32); COR CA(FOR HYPOALB) 10.1 mg/dL (8.5-10.1); CREATININE 1.46 mg/dL (0.70-1.30); TOTAL PROTEIN 6.6 g/dL (6.4-8.2)
[2021-09-14 05:46] LABS: BAND NEUTROPHILS % 1 % (0-10); PLATELET MORPHOLOGY COMMENT NORMAL (NORMAL)
[2021-09-14] MEDS: NovoLIN R (or HumuLIN R) SUBCUT PRN ×2 (06:03→12:49)
[2021-09-14] MEDS: ASCORBIC ACID INJ MULTI-DOSE VIAL 1,500 MG in NS 100 ML IV 100 ML IV SCH (08:54)
[2021-09-14] MEDS: LOVENOX INJ 100 MG SYR SC SCH ×2 (08:55→20:24)
[2021-09-14] MEDS: DIFLUCAN 200 MG IV PREMIX* 200 MG/100 ML BAG IV SCH (08:55)
[2021-09-14] MEDS: PROTONIX INJ 40 MG VIAL IVP SCH ×2 (08:56→20:24)
[2021-09-14] MEDS ORDERED: CHRONULAC PO ONE (09:12)
[2021-09-14] MEDS: FLONASE NASAL SPRAY ENOSTRIL SCH (09:14)
[2021-09-14] MEDS: PULMICORT NEB TX 0.5 MG NEB SCH ×2 (09:25→21:19)
[2021-09-14] MEDS: BROVANA IN SCH ×2 (09:25→21:19)
[2021-09-14] MEDS: MUCOMYST (RESPIRATORY USE ONLY) NEB SCH ×2 (09:25→21:19)
--- NOTE | 2021-09-14 09:48 | PCM.PROG ---
Progress Note Progress Note for Day of Date of Exam: 09/13/21 Subjective Subjective: Pt is a 75 year old male past medical history of COPD(BL home O2 between 2-3L), Hypertension, DMT2, admitted for COVID-19 pneumonia and hypoxia. Pt has been vaccinated with J&J vaccine, received Regen-COV outpatient. This morning there has been no change in patient's respiratory status. He does feel a little better compared to yesterday but is requiring max support on BiPAP. He has smart vest currently on. Labs/imaging: Wbc 16.7, Hgb 12.1, Plt 244, Na 152, K 4.3, Creatinine 1.55, Glucose 187, CRP 52, Sputum culture NGTD. CXR was obtained that revealed: Prominent bilateral lung infiltrates are similar to prior study. Pt is currently on pneumonia protocol that includes: IVF NS@75 ml/h, Solumedrol 125mg q8h, Remdesivir, scheduled Bronchodilators Xopenex and Budesonide, Antibiotics: Zosyn and Diflucan, Full dose lovenox, Actemra x 1, immune supporting supplements, supplemental O2, SSI, I/S, Physical therapy, Respiratory therapy consult, Smart vest. Will change IVF to 1/2 NS due to hypernatremia and decrease IV Solumedrol to 60 q6h. Continue to closely monitor closely and follow up labs/imaging. Time spent on clinical assessment, reviewing labs and imaging, decision making, and documentation greater than 45 minutes. Past Medical Family Social History Past Med/Fam/Surg Hx: No changes since H&P Allergies: Allergies adhesive tape Allergy (Verified 09/05/21 09:13) moxifloxacin [From Avelox] Allergy (Verified 09/05/21 09:13) Review of Systems ROS: No change since H&P Vital Signs and I&O's Vital Signs: Temperature 98.5 F Pulse Rate [Radial] 112 Pulse Rate 106 Respiratory Rate 32 Blood Pressure [Left Arm] 158/67 Blood Pressure 147/65 O2 Sat by Pulse Oximetry 92 Intake and Output: Intake & Output 09/11/21 09/12/21 09/13/21 09/14/21 23:59 23:59 23:59 23:59 Intake Total 1790 / 1790 1166 / 1166 1608 / 1608 606 / 606 Output Total 2100 / 2100 3300 / 3300 2500 / 2500 400 / 400 Balance -310 / -310 -2134 / -2134 -892 / -892 206 / 206 Physical Exam Oriented: Normal Eyes: Normal Ear: Normal Nose: Normal Throat: Normal Respiratory: Diminished and Rales Cardiovascular: Normal : Normal Auscultation: Bowel Sounds: Normal Tenderness: Normal Skin: Normal Musculoskeletal: Normal Psychiatric: Normal Mood Description: Calm and Appropriate Affect: Normal Speech Pattern: Clear and Appropriate Laboratory and Diagnostics Result Diagrams: 09/14/21 04:51 09/14/21 04:51 Labs: 09/05/21 08:23 Sputum - Expectorated Sputum Sputum Culture - Final 09/05/21 08:23 Sputum - Expectorated Sputum - Final Laboratory WBC 19.8 X10^3/uL (3.6-10.0) H 09/14/21 04:51 RBC 3.98 X10^6/uL (4.7-6.0) L 09/14/21 04:51 Hgb 12.0 g/dL (13.5-18.0) L 09/14/21 04:51 Hct 36.4 % (42.0-54.0) L 09/14/21 04:51 MCV 91.6 fL (80.0-100.0) 09/14/21 04:51 MCH 30.3 pg (27.0-34.0) 09/14/21 04:51 MCHC 33.1 g/dL (33.0-35.0) 09/14/21 04:51 RDW 14.9 % (11.6-16.5) 09/14/21 04:51 Plt Count 225 X10^3/uL (150.0-450.0) 09/14/21 04:51 Plt Count Comment Adequate (ADEQUATE) 09/14/21 04:51 MPV 9.5 fL (7.4-11.0) 09/14/21 04:51 Neut % (Auto) 93.6 % (42.0-75.0) H 09/14/21 04:51 Lymph % (Auto) 2.0 % (21.0-51.0) L 09/14/21 04:51 [place] % (Auto) 4.1 % (0.0-13.0) 09/14/21 04:51 Eos % (Auto) 0.0 % (0.9-2.9) L 09/14/21 04:51 Baso % (Auto) 0.3 % (0.2-1.0) 09/14/21 04:51 Neut # (Auto) 18.5 x10^3/uL (2.2-4.8) H 09/14/21 04:51 Lymph # (Auto) 0.4 X10^3/uL (1.3-2.9) L 09/14/21 04:51 [place] # (Auto) 0.8 x10^3/uL (0.3-0.8) 09/14/21 04:51 Eos # (Auto) 0.0 x10^3/uL (0.0-0.2) 09/14/21 04:51 Baso # (Auto) 0.1 X10^3/uL (0.0-0.1) 09/14/21 04:51 Absolute Nucleated RBC 0.0 /100WBC 09/14/21 04:51 Total Counted 100 09/14/21 04:51 Neutrophils % (Manual) 95 % (39-76) H 09/14/21 04:51 Band Neutrophils % 1 % (0-10) 09/14/21 04:51 Lymphocytes % (Manual) 2 % (13-43) L 09/14/21 04:51 Monocytes % (Manual) 2 % (4-9) L 09/14/21 04:51 Eosinophils % (Manual) 2 % (0-6) 09/11/21 04:37 Plt Morphology Comment Normal (NORMAL) 09/14/21 04:51 RBC Morphology Normal (NORMAL) 09/14/21 04:51 D-Dimer 1.79 ug/ml (0.0-0.57) H* 09/05/21 08:19 Sample Site Rrad 09/11/21 06:15 ABG pH 7.310 (7.35-7.45) L 09/11/21 06:15 ABG pCO2 49.0 mmHg (35.0-45.0) H 09/11/21 06:15 ABG pO2 67.0 mmHg (80.0-100.0) L 09/11/21 06:15 ABG HCO3 24.7 mmol/L (22-26) 09/11/21 06:15 ABG O2 Saturation 91.0 % (90-100) 09/11/21 06:15 ABG Base Excess -2.0 mmol/L (-2.0-2.0) 09/11/21 06:15 Mir Test Pos 09/11/21 06:15 A-a Gradient 585.0 mmHg 09/11/21 06:15 FiO2 100.0 09/11/21 06:15 Blood Gas Comments Brian well ms/mt 09/11/21 06:15 Sodium 155 mmol/L (136-145) H* 09/14/21 04:51 Corrected Sodium 157 mmol/L (136-145) H 09/14/21 04:51 Potassium 4.2 mmol/L (3.5-5.1) 09/14/21 04:51 Chloride 118 mmol/L (98-107) H* 09/14/21 04:51 Carbon Dioxide 27.2 mmol/L (21-32) 09/14/21 04:51 BUN 67 mg/dL (7-18) H 09/14/21 04:51 Creatinine 1.46 mg/dL (0.70-1.30) H 09/14/21 04:51 Est GFR (MDRD) Af Amer 60 (>60) 09/14/21 04:51 Est GFR (MDRD) Non-Af 50 (>60) L 09/14/21 04:51 Glucose 204 mg/dL (65-99) H 09/14/21 04:51 POC Glucose (mg/dL) 248 mg/dL (65-99) H 09/13/21 19:29 Calcium 8.6 mg/dL (8.5-10.1) 09/14/21 04:51 Corrected Calcium 10.1 mg/dL (8.5-10.1) 09/14/21 04:51 Total Bilirubin 0.40 mg/dL (0.2-1.0) 09/14/21 04:51 AST 40 Units/L (15-37) H 09/14/21 04:51 ALT 37 Units/L (12-78) 09/14/21 04:51 Alkaline Phosphatase 294 Units/L (46-116) H 09/14/21 04:51 C-Reactive Protein 52.20 mg/L (0-3.0) H 09/13/21 04:52 Total Protein 6.6 g/dL (6.4-8.2) 09/14/21 04:51 Albumin 2.1 g/dL (3.4-5.0) L 09/14/21 04:51 Globulin 4.5 g/dL (2.5-4.5) 09/14/21 04:51 Albumin/Globulin Ratio 0.5 Ratio (1.1-2.1) L 09/14/21 04:51 SARS-CoV-2 (PCR) Positive (NEGATIVE) A 09/05/21 08:40 Influenza Type A (PCR) Negative (NEGATIVE) 09/05/21 08:40 Influenza Type B (PCR) Negative (NEGATIVE) 09/05/21 08:40 RSV (PCR) Negative (NEGATIVE) 09/05/21 08:40 Plan (1) COVID-19: Status: Acute Plan: Pneumonia protocol (2) Chronic obstructive pulmonary disease with acute respiratory distress: Status: Acute (3) Acute renal failure: Status: Acute (4) Dehydration: Status: Acute
[2021-09-14] MEDS: ZINC SULFATE PO SCH ×2 (10:00→20:24)
[2021-09-14] MEDS: ASPIRIN EC 81 MG PO SCH (10:00)
[2021-09-14] MEDS: PEPCID TAB 40 MG PO SCH (10:00)
[2021-09-14] MEDS: LOPID PO SCH ×2 (10:00→20:24)
[2021-09-14] MEDS: PLAVIX PO SCH (10:00)
[2021-09-14] MEDS: ACTOS PO SCH (10:00)
[2021-09-14] MEDS: HYDROCHLOROTHIAZIDE 12.5 MG CAP PO SCH (10:00)
[2021-09-14] MEDS: VITAMIN D3 125 mcg (5,000 UNITS) PO SCH (10:00)
[2021-09-14] MEDS: LOPRESSOR TAB 50 MG PO SCH ×2 (10:00→20:24)
[2021-09-14] MEDS: HYTRIN PO SCH (10:00)
[2021-09-14] MEDS: NYSTATIN POWDER TOP SCH ×2 (10:00→20:23)
[2021-09-14] MEDS: NEURONTIN CAP 300 MG PO SCH ×2 (10:00→20:24)
[2021-09-14] MEDS: COLACE CAP 100 MG PO SCH (10:00)
[2021-09-14] MEDS: CRESTOR TAB 10 MG PO SCH (10:00)
[2021-09-14] MEDS: SYNTHROID 75 mcg TAB PO SCH (10:00)
[2021-09-14] MEDS: NS 1/2 1,000 ML IV 1,000 ML IV SCH ×2 (11:22→11:30)
--- NOTE | 2021-09-14 11:36 | PCM.PROG ---
Progress Note Progress Note for Day of Date of Exam: 09/14/21 Subjective Subjective: Pt is a 75 year old male past medical history of COPD(BL home O2 between 2-3L), Hypertension, DMT2, admitted for COVID-19 pneumonia and hypoxia. Pt has been vaccinated with J&J vaccine, received Regen-COV outpatient. This morning patient appears to be a little worse than yesterday. Per nursing, he will have a brief period to remove BiPAP and be placed on heated high flow to eat and take oral medications, however his pulse ox rapidly declines down into 70s and he has to be placed back on. He is currently on max support on BiPAP. Labs/imaging: Wbc 19.8, Hgb 12, Plt 225, Na 155, K 4.2, Creatinine 1.46, Glucose 204, CRP 52, Sputum culture NGTD. CXR was obtained that revealed: Prominent b ilateral lung infiltrates are similar to prior study. Pt is currently on pneumonia protocol that includes: IVF 1/2NS@75 ml/h, Solumedrol 60mg q6h, Remdesivir(completed), scheduled Bronchodilators Xopenex and Budesonide, Antibiotics: Zosyn and Diflucan, Full dose lovenox, Actemra x 1, immune supporti ng supplements, supplemental O2, SSI, I/S, Physical therapy, Respiratory therapy consult, Smart vest. Will change IVF to D5w due to persistent hypernatremia and decrease IV Solumedrol to 40mg q12h. Discontinue Zosyn and add fortaz. Concern as patient appears to be depended on BiPAP. Will discuss with family. Pt still has not had bowel movement since admission. Will get KUB, give lactulose x 1 dose, and if does not help can try enema. Continue to closely monitor closely and follow up labs/imaging. Time spent on clinical assessment, reviewing labs and imaging, decision making, and documentation greater than 45 minutes. Past Medical Family Social History Past Med/Fam/Surg Hx: No changes since H&P Allergies: Allergies adhesive tape Allergy (Verified 09/05/21 09:13) moxifloxacin [From Avelox] Allergy (Verified 09/05/21 09:13) Review of Systems ROS: No change since H&P Vital Signs and I&O's Vital Signs: Temperature 98.5 F Pulse Rate [Radial] 101 Pulse Rate 112 Respiratory Rate 35 Blood Pressure [Left Arm] 174/72 Blood Pressure 147/65 O2 Sat by Pulse Oximetry 94 Intake and Output: Intake & Output 09/11/21 09/12/21 09/13/21 09/14/21 23:59 23:59 23:59 23:59 Intake Total 1790 / 1790 1166 / 1166 1608 / 1608 666 / 666 Output Total 2100 / 2100 3300 / 3300 2500 / 2500 900 / 900 Balance -310 / -310 -2134 / -2134 -892 / -892 -234 / -234 Physical Exam Oriented: Normal Eyes: Normal Ear: Normal Nose: Normal Throat: Normal Respiratory: Diminished and Rales Cardiovascular: Normal : Normal Auscultation: Bowel Sounds: Normal Tenderness: Normal Skin: Normal Musculoskeletal: Normal Psychiatric: Normal Mood Description: Calm and Appropriate Affect: Normal Speech Pattern: Clear and Appropriate Laboratory and Diagnostics Result Diagrams: 09/14/21 04:51 09/14/21 04:51 Labs: 09/05/21 08:23 Sputum - Expectorated Sputum Sputum Culture - Final 09/05/21 08:23 Sputum - Expectorated Sputum - Final Laboratory WBC 19.8 X10^3/uL (3.6-10.0) H 09/14/21 04:51 RBC 3.98 X10^6/uL (4.7-6.0) L 09/14/21 04:51 Hgb 12.0 g/dL (13.5-18.0) L 09/14/21 04:51 Hct 36.4 % (42.0-54.0) L 09/14/21 04:51 MCV 91.6 fL (80.0-100.0) 09/14/21 04:51 MCH 30.3 pg (27.0-34.0) 09/14/21 04:51 MCHC 33.1 g/dL (33.0-35.0) 09/14/21 04:51 RDW 14.9 % (11.6-16.5) 09/14/21 04:51 Plt Count 225 X10^3/uL (150.0-450.0) 09/14/21 04:51 Plt Count Comment Adequate (ADEQUATE) 09/14/21 04:51 MPV 9.5 fL (7.4-11.0) 09/14/21 04:51 Neut % (Auto) 93.6 % (42.0-75.0) H 09/14/21 04:51 Lymph % (Auto) 2.0 % (21.0-51.0) L 09/14/21 04:51 [place] % (Auto) 4.1 % (0.0-13.0) 09/14/21 04:51 Eos % (Auto) 0.0 % (0.9-2.9) L 09/14/21 04:51 Baso % (Auto) 0.3 % (0.2-1.0) 09/14/21 04:51 Neut # (Auto) 18.5 x10^3/uL (2.2-4.8) H 09/14/21 04:51 Lymph # (Auto) 0.4 X10^3/uL (1.3-2.9) L 09/14/21 04:51 [place] # (Auto) 0.8 x10^3/uL (0.3-0.8) 09/14/21 04:51 Eos # (Auto) 0.0 x10^3/uL (0.0-0.2) 09/14/21 04:51 Baso # (Auto) 0.1 X10^3/uL (0.0-0.1) 09/14/21 04:51 Absolute Nucleated RBC 0.0 /100WBC 09/14/21 04:51 Total Counted 100 09/14/21 04:51 Neutrophils % (Manual) 95 % (39-76) H 09/14/21 04:51 Band Neutrophils % 1 % (0-10) 09/14/21 04:51 Lymphocytes % (Manual) 2 % (13-43) L 09/14/21 04:51 Monocytes % (Manual) 2 % (4-9) L 09/14/21 04:51 Eosinophils % (Manual) 2 % (0-6) 09/11/21 04:37 Plt Morphology Comment Normal (NORMAL) 09/14/21 04:51 RBC Morphology Normal (NORMAL) 09/14/21 04:51 D-Dimer 1.79 ug/ml (0.0-0.57) H* 09/05/21 08:19 Sample Site Rrad 09/11/21 06:15 ABG pH 7.310 (7.35-7.45) L 09/11/21 06:15 ABG pCO2 49.0 mmHg (35.0-45.0) H 09/11/21 06:15 ABG pO2 67.0 mmHg (80.0-100.0) L 09/11/21 06:15 ABG HCO3 24.7 mmol/L (22-26) 09/11/21 06:15 ABG O2 Saturation 91.0 % (90-100) 09/11/21 06:15 ABG Base Excess -2.0 mmol/L (-2.0-2.0) 09/11/21 06:15 Mir Test Pos 09/11/21 06:15 A-a Gradient 585.0 mmHg 09/11/21 06:15 FiO2 100.0 09/11/21 06:15 Blood Gas Comments Brian well ms/mt 09/11/21 06:15 Sodium 155 mmol/L (136-145) H* 09/14/21 04:51 Corrected Sodium 157 mmol/L (136-145) H 09/14/21 04:51 Potassium 4.2 mmol/L (3.5-5.1) 09/14/21 04:51 Chloride 118 mmol/L (98-107) H* 09/14/21 04:51 Carbon Dioxide 27.2 mmol/L (21-32) 09/14/21 04:51 BUN 67 mg/dL (7-18) H 09/14/21 04:51 Creatinine 1.46 mg/dL (0.70-1.30) H 09/14/21 04:51 Est GFR (MDRD) Af Amer 60 (>60) 09/14/21 04:51 Est GFR (MDRD) Non-Af 50 (>60) L 09/14/21 04:51 Glucose 204 mg/dL (65-99) H 09/14/21 04:51 POC Glucose (mg/dL) 248 mg/dL (65-99) H 09/13/21 19:29 Calcium 8.6 mg/dL (8.5-10.1) 09/14/21 04:51 Corrected Calcium 10.1 mg/dL (8.5-10.1) 09/14/21 04:51 Total Bilirubin 0.40 mg/dL (0.2-1.0) 09/14/21 04:51 AST 40 Units/L (15-37) H 09/14/21 04:51 ALT 37 Units/L (12-78) 09/14/21 04:51 Alkaline Phosphatase 294 Units/L (46-116) H 09/14/21 04:51 C-Reactive Protein 52.20 mg/L (0-3.0) H 09/13/21 04:52 Total Protein 6.6 g/dL (6.4-8.2) 09/14/21 04:51 Albumin 2.1 g/dL (3.4-5.0) L 09/14/21 04:51 Globulin 4.5 g/dL (2.5-4.5) 09/14/21 04:51 Albumin/Globulin Ratio 0.5 Ratio (1.1-2.1) L 09/14/21 04:51 SARS-CoV-2 (PCR) Positive (NEGATIVE) A 09/05/21 08:40 Influenza Type A (PCR) Negative (NEGATIVE) 09/05/21 08:40 Influenza Type B (PCR) Negative (NEGATIVE) 09/05/21 08:40 RSV (PCR) Negative (NEGATIVE) 09/05/21 08:40 Plan (1) COVID-19: Status: Acute Plan: Pneumonia protocol (2) Chronic obstructive pulmonary disease with acute respiratory distress: Status: Acute (3) Acute renal failure: Status: Acute (4) Dehydration: Status: Acute
[2021-09-14] MEDS: FORTAZ or TAZICEF VIAL INJ 1 G in NS 100 ML IV + SPIKE MINIBAG* 100 ML IV SCH ×3 (12:49→21:10)
[2021-09-14] MEDS: D5W 1,000 ML IV 1,000 ML IV SCH (12:49)
--- NOTE | 2021-09-14 12:57 | RAD ---
HISTORYABD PAIN, COVID+STUDYKUBCOMPARISONNoneFI NDINGSEvaluation of the abdomen demonstrates a normal bowel gas pattern. No pathological soft tissue mass or calcification can be observed. The bony structures are grossly intact.IMPRESSIONNo evidence for acute abdominal pathology identified.Electronically signed by: NOBLE HOFF (Sep 14, 2021 12:55:58)
[2021-09-14] MEDS: APRESOLINE INJ 20 MG VIAL IVP PRN (16:09)
[2021-09-14] MEDS: TUSSIONEX PENNKINETIC SUSP PO PRN (17:05)
[2021-09-14] MEDS ORDERED: SOLU-Medrol 40 MG VIAL ONE (19:10)
[2021-09-14] MEDS: ZyrTEC TAB 10 MG PO SCH (20:24)
[2021-09-14] MEDS: SNACK - Diabetic Appropriate PO SCH (20:25)
[2021-09-14] MEDS: SOLU-Medrol 40 MG VIAL IVP SCH (20:26)
[2021-09-15] MEDS: D5W 1,000 ML IV 1,000 ML IV SCH ×3 (01:44→15:33)
[2021-09-15] MEDS: APRESOLINE INJ 20 MG VIAL IVP PRN (04:30)
[2021-09-15 05:29] LABS: ABG BASE EXCESS 5.4 mmol/L (-2.0-2.0)
[2021-09-15 05:30] LABS: ABG ALLEN TEST POS; ABG HCO3 31.1 mmol/L (22-26)
[2021-09-15 05:36] LABS: BASOPHILS % (AUTO) 0.1 % (0.2-1.0); EOSINOPHILS % (AUTO) 0.1 % (0.9-2.9); HEMATOCRIT 35.1 % (42.0-54.0); HEMOGLOBIN 11.6 g/dL (13.5-18.0); LYMPHOCYTES # (AUTO) 0.4 X10^3/uL (1.3-2.9); LYMPHOCYTES % (AUTO) 2.9 % (21.0-51.0); MEAN CORPUSCULAR HEMOGLOBIN 30.2 pg (27.0-34.0); MEAN CORPUSCULAR VOLUME 91.3 fL (80.0-100.0); MEAN PLATELET VOLUME 9.8 fL (7.4-11.0); MONOCYTES # (AUTO) 0.8 x10^3/uL (0.3-0.8); MONOCYTES % (AUTO) 4.9 % (0.0-13.0); NEUTROPHILS # (AUTO) 14.4 x10^3/uL (2.2-4.8); RED BLOOD COUNT 3.85 X10^6/uL (4.7-6.0); WHITE BLOOD COUNT 15.6 X10^3/uL (3.6-10.0)
[2021-09-15 05:50] LABS: ALANINE AMINOTRANSFERASE 33 Units/L (12-78); ALBUMIN 2.1 g/dL (3.4-5.0); ALKALINE PHOSPHATASE 245 Units/L (46-116); ASPARTATE AMINO TRANSFERASE 32 Units/L (15-37); BLOOD UREA NITROGEN 61 mg/dL (7-18); CALCIUM 8.3 mg/dL (8.5-10.1); CARBON DIOXIDE 28.5 mmol/L (21-32); COR CA(FOR HYPOALB) 9.8 mg/dL (8.5-10.1); COR NA(FOR HYPERGLY) 160 mmol/L (136-145); TOTAL PROTEIN 6.4 g/dL (6.4-8.2); eGFR NON BLACK RACES 52 (>60)
[2021-09-15] MEDS: FORTAZ or TAZICEF VIAL INJ 1 G in NS 100 ML IV + SPIKE MINIBAG* 100 ML IV SCH ×3 (06:00→21:21)
[2021-09-15 06:05] LABS: PLATELET MORPHOLOGY COMMENT NORMAL (NORMAL)
[2021-09-15 06:11] LABS: SODIUM 157 mmol/L (136-145)
[2021-09-15 06:12] LABS: CHLORIDE 121 mmol/L (98-107)
[2021-09-15] MEDS: NovoLIN R (or HumuLIN R) SUBCUT PRN ×4 (06:15→23:08)
--- NOTE | 2021-09-15 06:24 | RAD ---
HISTORYCOVID-19STUDYAP chestCOMPARISONJanuary 2021FINDINGSStable normal heart size. Persistent but slightly improved bilateral pulmonary infiltrates. There is no evidence for additional consolidation, developing pleural effusion or pneumothorax.IMPRESSIONSlight radiographic improvement in bilateral pneumonia.Electronically signed by: ALVARO VILLEGAS (Sep 15, 2021 06:22:46)
[2021-09-15] MEDS: PULMICORT NEB TX 0.5 MG NEB SCH ×2 (08:04→21:16)
[2021-09-15] MEDS: MUCOMYST (RESPIRATORY USE ONLY) NEB SCH ×2 (08:04→21:16)
[2021-09-15] MEDS: BROVANA IN SCH ×2 (08:04→21:16)
[2021-09-15] MEDS ORDERED: VITAMIN C PO SCH (09:00)
[2021-09-15] MEDS: DIFLUCAN 200 MG IV PREMIX* 200 MG/100 ML BAG IV SCH (10:06)
[2021-09-15] MEDS: SOLU-Medrol 40 MG VIAL IVP SCH ×2 (10:07→20:21)
[2021-09-15] MEDS: LOVENOX INJ 100 MG SYR SC SCH ×2 (10:07→20:20)
[2021-09-15] MEDS: NYSTATIN POWDER TOP SCH ×2 (11:06→20:46)
--- NOTE | 2021-09-15 12:27 | DR.UPDATE ---
H&P Update History and Physical Update: History and Physical reviewed and patient examined. Changes noted: NO Yes with the following: will place CVL H&P Reviewed: Yes Patient was examined?: Yes Procedures (ALL) - Central Line Placement PCM.CLCO: written consent Time out performed: Yes Patient placed pm monitor/pulse ox: Yes MD prep: mask, gown, gloves, other Centrial line prep: chlorhexidine scrub, sterile drapes applied Local anesthsia used: lidocane 1% Ultrasound used for placement: Yes (good visualization on right IJ) Central line lumen ininserted: triple Post procedure: sutured in place, good blood return, all ports aspirated, flushed,capped, sterile dressing applied Post procedure xray: tip oc catheter in good position, no pneumothorax seen, other Patient tolerated procedure: Yes (tolerated well) Complications: none
--- NOTE | 2021-09-15 13:20 | RAD ---
HISTORYCENTRAL LINE PLACEMENTSTUDYCHEST, 1 [id number]/19/2022FINDINGSRight jugular central venous catheter is in the expected location of the superior vena cava.Abnormal opacity is present mostly in the left apex in the right lower lung. Over the course of the patient's recent examinations, there has been a general improvement. This could be pulmonary edema or pneumonia.No pleural effusion or pneumothorax.The heart size is magnified.Bones are unremarkable.Median sternotomy wires are present. EKG leads are noted.IMPRESSION1. Improved pulmonary edema or pneumoniaElectronically signed by: Adelso Don (Sep 15, 2021 13:19:39)
[2021-09-15] MEDS: PROTONIX INJ 40 MG VIAL IVP SCH ×2 (13:57→20:20)
[2021-09-15] MEDS: PEPCID 20 MG VIAL 20 MG in NS 50 ML IV 50 ML IV SCH (13:58)
[2021-09-15] MEDS: ACTOS PO SCH (14:02)
[2021-09-15] MEDS: COLACE CAP 100 MG PO SCH (14:03)
[2021-09-15] MEDS: FLONASE NASAL SPRAY ENOSTRIL SCH (14:03)
[2021-09-15] MEDS: ASPIRIN EC 81 MG PO SCH (14:03)
[2021-09-15] MEDS: CRESTOR TAB 10 MG PO SCH (14:03)
[2021-09-15] MEDS: HYDROCHLOROTHIAZIDE 12.5 MG CAP PO SCH (14:03)
[2021-09-15] MEDS: PEPCID TAB 40 MG PO SCH (14:04)
[2021-09-15] MEDS: HYTRIN PO SCH (14:04)
[2021-09-15] MEDS: PLAVIX PO SCH (14:04)
[2021-09-15] MEDS: LOPRESSOR TAB 50 MG PO SCH (14:04)
[2021-09-15] MEDS: NEURONTIN CAP 300 MG PO SCH (14:04)
[2021-09-15] MEDS: LOPID PO SCH (14:04)
[2021-09-15] MEDS: VITAMIN D3 125 mcg (5,000 UNITS) PO SCH (14:05)
[2021-09-15] MEDS: ZINC SULFATE PO SCH (14:05)
[2021-09-15] MEDS: SYNTHROID 75 mcg TAB PO SCH (14:05)
[2021-09-15] MEDS ORDERED: DEXTROSE 10% 1,000 ML IV PRN (14:20)
[2021-09-15] MEDS: CLINIMIX 5 %/20 % 1,000 ML with MVI INJ (ADULT) 10 ML IV SCH ×2 (15:33)
[2021-09-15] MEDS: LOPRESSOR INJ 5 MG AMP IVP SCH ×2 (15:34→20:20)
[2021-09-15] MEDS: ZOFRAN INJ 4 MG VIAL IVP PRN (17:16)
[2021-09-15] MEDS: SNACK - Diabetic Appropriate PO SCH (20:21)
[2021-09-16] MEDS: CLINIMIX 5 %/20 % 1,000 ML with MVI INJ (ADULT) 10 ML IV SCH ×2 (01:18)
[2021-09-16] MEDS: LOPRESSOR INJ 5 MG AMP IVP SCH ×4 (02:31→20:43)
[2021-09-16] MEDS: NovoLIN R (or HumuLIN R) SUBCUT PRN ×4 (02:32→17:28)
[2021-09-16] MEDS: ZOFRAN INJ 4 MG VIAL IVP PRN (02:38)
[2021-09-16 05:08] LABS: BASOPHILS % (AUTO) 0.2 % (0.2-1.0); EOSINOPHILS % (AUTO) 0.4 % (0.9-2.9); HEMATOCRIT 34.2 % (42.0-54.0); HEMOGLOBIN 11.3 g/dL (13.5-18.0); LYMPHOCYTES # (AUTO) 0.4 X10^3/uL (1.3-2.9); LYMPHOCYTES % (AUTO) 5.1 % (21.0-51.0); MEAN CORPUSCULAR HEMOGLOBIN 30.4 pg (27.0-34.0); MEAN CORPUSCULAR HGB CONC 32.9 g/dL (33.0-35.0); MEAN CORPUSCULAR VOLUME 92.4 fL (80.0-100.0); MEAN PLATELET VOLUME 9.8 fL (7.4-11.0); MONOCYTES # (AUTO) 0.3 x10^3/uL (0.3-0.8); MONOCYTES % (AUTO) 3.2 % (0.0-13.0); NEUTROPHILS # (AUTO) 7.2 x10^3/uL (2.2-4.8); NEUTROPHILS % (AUTO) 91.1 % (42.0-75.0); RED CELL DISTRIBUTION WIDTH 15.2 % (11.6-16.5); WHITE BLOOD COUNT 7.9 X10^3/uL (3.6-10.0)
[2021-09-16 05:22] LABS: ALANINE AMINOTRANSFERASE 32 Units/L (12-78); ALKALINE PHOSPHATASE 214 Units/L (46-116); ASPARTATE AMINO TRANSFERASE 26 Units/L (15-37); BLOOD UREA NITROGEN 53 mg/dL (7-18); CALCIUM 8.5 mg/dL (8.5-10.1); CARBON DIOXIDE 34.4 mmol/L (21-32); COR CA(FOR HYPOALB) 10.1 mg/dL (8.5-10.1); COR NA(FOR HYPERGLY) 166 mmol/L (136-145); CREATININE 1.29 mg/dL (0.70-1.30); MAGNESIUM 2.8 mg/dL (1.7-2.9); PHOSPHORUS 2.8 mg/dL (2.6-4.7); TOTAL PROTEIN 6.2 g/dL (6.4-8.2); TRIGLYCERIDES 162 mg/dL (0-150); eGFR NON BLACK RACES 58 (>60)
[2021-09-16] MEDS: FORTAZ or TAZICEF VIAL INJ 1 G in NS 100 ML IV + SPIKE MINIBAG* 100 ML IV SCH (05:26)
[2021-09-16 05:34] LABS: CHLORIDE 123 mmol/L (98-107); SODIUM 161 mmol/L (136-145)
[2021-09-16 05:39] LABS: PREALBUMIN 15.3 mg/dL (18-35.7)
[2021-09-16 05:47] LABS: PLATELET MORPHOLOGY COMMENT NORMAL (NORMAL)
[2021-09-16 05:56] LABS: ABG BASE EXCESS 9.9 mmol/L (-2.0-2.0)
[2021-09-16 05:57] LABS: ABG ALLEN TEST POS; ABG HCO3 36.3 mmol/L (22-26)
--- NOTE | 2021-09-16 07:36 | RAD ---
HISTORYCOVID+STUDYCHEST, 1 VIEWCOMPARISONOne day prior.TECHNIQUEAP view of the chestFINDINGSRight IJ central line in good position. Post median sternotomy.The cardiac and mediastinal contours appear stable. Mild worsening of bilateral airspace and interstitial opacities diffusely throughout the lungs. No definite pleural effusion or pneumothorax. Soft tissue attenuation limits evaluation.IMPRESSIONInterval worsening COVID 19 pneumonia.Electronically signed by: Ke Mckay (Sep 16, 2021 07:35:19)
[2021-09-16] MEDS: BROVANA IN SCH ×2 (08:45→21:18)
[2021-09-16] MEDS: PULMICORT NEB TX 0.5 MG NEB SCH ×2 (08:45→21:18)
[2021-09-16] MEDS: MUCOMYST (RESPIRATORY USE ONLY) NEB SCH ×2 (08:45→21:18)
[2021-09-16] MEDS: MORPHINE SULFATE INJ 2 MG INJ IVP PRN ×2 (08:49→12:59)
[2021-09-16] MEDS ORDERED: CLINIMIX 5 %/20 % 1,000 ML with MVI INJ (ADULT) 10 ML, NovoLIN R (or HumuLIN R) 10 UNITS IV SCH ×3 (09:00)
[2021-09-16] MEDS: PEPCID 20 MG VIAL 20 MG in NS 50 ML IV 50 ML IV SCH (09:09)
[2021-09-16] MEDS: DIFLUCAN 200 MG IV PREMIX* 200 MG/100 ML BAG IV SCH (09:09)
[2021-09-16] MEDS: PROTONIX INJ 40 MG VIAL IVP SCH (09:10)
[2021-09-16] MEDS: NYSTATIN POWDER TOP SCH ×2 (09:10→20:52)
[2021-09-16] MEDS: LOVENOX INJ 100 MG SYR SC SCH ×2 (09:10→20:44)
[2021-09-16] MEDS: SOLU-Medrol 40 MG VIAL IVP SCH (09:11)
--- NOTE | 2021-09-16 09:58 | PCM.PROG ---
Progress Note Progress Note for Day of Date of Exam: 09/15/21 Subjective Subjective: Pt is a 75 year old male past medical history of COPD(BL home O2 between 2-3L), Hypertension, DMT2, admitted for COVID-19 pneumonia(positive 09/05) and hypoxia. Pt has been vaccinated with J&J vaccine, received Regen-COV outpatient. Patient's respiratory status has remained the same as he is c urrently on BiPAP with FiO2 90%. Labs/imaging: Wbc 15.6, Hgb 11.6, Plt 185, Na 157, K 4.0, Creatinine 1.40, Glucose 221, CRP 19, ABG: pH 7.41, pCO2 49, pO2 62, HCO3 31, O2sat 92% on BiPAP FiO2@90%. Sputum culture NGTD. CXR was obtained that revealed: Improved pulmonary edema or pneumonia. Pt is currently on pneumonia protocol that includes: IVF D5W@75 ml/h, Solumedrol 40mg q12h, Remdesivir (completed), scheduled Bronchodilators Xopenex and Budesonide, Antibiotics: Fortaz and Diflucan, Full dose lovenox, Actemra x 1, immune supporting supplements, supplemental O2, SSI, I/S, Physical therapy, Respiratory therapy consult, Smart vest. Pt continues to have hypernatremia and poor nutrition. Will increase rate of D5W to 125ml/h and order central line to be placed. Will start on TPN nutrition. Concern as patient appears to be depended on BiPAP with little improvement. Will continue to closely monitor and follow up labs/imaging. Critical care time spent 30-74 minutes in clinical assessment, reviewing labs/imaging, decision making, and documentation. Past Medical Family Social History Past Med/Fam/Surg Hx: No changes since H&P Allergies: Allergies adhesive tape Allergy (Verified 09/05/21 09:13) moxifloxacin [From Avelox] Allergy (Verified 09/05/21 09:13) Review of Systems ROS: No change since H&P Vital Signs and I&O's Vital Signs: Temperature 98.0 F Pulse Rate [Radial] 102 Pulse Rate 104 Respiratory Rate 39 Blood Pressure [Left Arm] 170/74 Blood Pressure 167/65 O2 Sat by Pulse Oximetry 90 Intake and Output: Intake & Output 09/13/21 09/14/21 09/15/2109/16/22 23:59 23:59 23:59 23:59 Intake Total 1608 / 1608 2325 / 2325 2360 / 2360 775 / 775 Output Total 2500 / 2500 2450 / 2450 1575 / 1575 900 / 900 Balance -892 / -892 -125 / -125 785 / 785 -125 / -125 Physical Exam Oriented: Normal Eyes: Normal Ear: Normal Nose: Normal Throat: Normal Respiratory: Diminished and Rales Cardiovascular: Normal : Normal Auscultation: Bowel Sounds: Normal Tenderness: Normal Skin: Normal Musculoskeletal: Normal Psychiatric: Normal Mood Description: Calm and Appropriate Affect: Normal Speech Pattern: Clear and Appropriate Laboratory and Diagnostics Result Diagrams: 09/16/21 04:50 09/16/21 04:50 Labs: 09/05/21 08:23 Sputum - Expectorated Sputum Sputum Culture - Final 09/05/21 08:23 Sputum - Expectorated Sputum - Final Laboratory WBC 7.9 X10^3/uL (3.6-10.0) 09/16/21 04:50 RBC 3.70 X10^6/uL (4.7-6.0) L 09/16/21 04:50 Hgb 11.3 g/dL (13.5-18.0) L 09/16/21 04:50 Hct 34.2 % (42.0-54.0) L 09/16/21 04:50 MCV 92.4 fL (80.0-100.0) 09/16/21 04:50 MCH 30.4 pg (27.0-34.0) 09/16/21 04:50 MCHC 32.9 g/dL (33.0-35.0) L 09/16/21 04:50 RDW 15.2 % (11.6-16.5) 09/16/21 04:50 Plt Count 160 X10^3/uL (150.0-450.0) 09/16/21 04:50 Plt Count Comment Adequate (ADEQUATE) 09/16/21 04:50 MPV 9.8 fL (7.4-11.0) 09/16/21 04:50 Neut % (Auto) 91.1 % (42.0-75.0) H 09/16/21 04:50 Lymph % (Auto) 5.1 % (21.0-51.0) L 09/16/21 04:50 [place] % (Auto) 3.2 % (0.0-13.0) 09/16/21 04:50 Eos % (Auto) 0.4 % (0.9-2.9) L 09/16/21 04:50 Baso % (Auto) 0.2 % (0.2-1.0) 09/16/21 04:50 Neut # (Auto) 7.2 x10^3/uL (2.2-4.8) H 09/16/21 04:50 Lymph # (Auto) 0.4 X10^3/uL (1.3-2.9) L 09/16/21 04:50 [place] # (Auto) 0.3 x10^3/uL (0.3-0.8) 09/16/21 04:50 Eos # (Auto) 0.0 x10^3/uL (0.0-0.2) 09/16/21 04:50 Baso # (Auto) 0.0 X10^3/uL (0.0-0.1) 09/16/21 04:50 Absolute Nucleated RBC 0.1 /100WBC 09/16/21 04:50 Total Counted 100 09/16/21 04:50 Neutrophils % (Manual) 93 % (39-76) H 09/16/21 04:50 Band Neutrophils % 1 % (0-10) 09/14/21 04:51 Lymphocytes % (Manual) 6 % (13-43) L 09/16/21 04:50 Monocytes % (Manual) 1 % (4-9) L 09/16/21 04:50 Eosinophils % (Manual) 2 % (0-6) 09/11/21 04:37 Plt Morphology Comment Normal (NORMAL) 09/16/21 04:50 RBC Morphology Normal (NORMAL) 09/16/21 04:50 D-Dimer 1.79 ug/ml (0.0-0.57) H* 09/05/21 08:19 Sample Site Rrad 09/16/21 05:55 ABG pH 7.420 (7.35-7.45) 09/16/21 05:55 ABG pCO2 56.0 mmHg (35.0-45.0) H* 09/16/21 05:55 ABG pO2 58.0 mmHg (80.0-100.0) L 09/16/21 05:55 ABG HCO3 36.3 mmol/L (22-26) H* 09/16/21 05:55 ABG O2 Saturation 90.0 % (90-100) 09/16/21 05:55 ABG Base Excess 9.9 mmol/L (-2.0-2.0) H 09/16/21 05:55 Mir Test Pos 09/16/21 05:55 A-a Gradient 514.0 mmHg 09/16/21 05:55 FiO2 90.0 09/16/21 05:55 Blood Gas Comments Brian abg well-mtf 09/16/21 05:55 Sodium 161 mmol/L (136-145) H* 09/16/21 04:50 Corrected Sodium 166 mmol/L (136-145) H 09/16/21 04:50 Potassium 3.9 mmol/L (3.5-5.1) 09/16/21 04:50 Chloride 123 mmol/L (98-107) H* 09/16/21 04:50 Carbon Dioxide 34.4 mmol/L (21-32) H 09/16/21 04:50 BUN 53 mg/dL (7-18) H 09/16/21 04:50 Creatinine 1.29 mg/dL (0.70-1.30) 09/16/21 04:50 Est GFR (MDRD) Af Amer > 60 (>60) 09/16/21 04:50 Est GFR (MDRD) Non-Af 58 (>60) L 09/16/21 04:50 Glucose 325 mg/dL (65-99) H 09/16/21 04:50 POC Glucose (mg/dL) 302 mg/dL (65-99) H 09/16/21 05:35 Calcium 8.5 mg/dL (8.5-10.1) 09/16/21 04:50 Corrected Calcium 10.1 mg/dL (8.5-10.1) 09/16/21 04:50 Phosphorus 2.8 mg/dL (2.6-4.7) 09/16/21 04:50 Magnesium 2.8 mg/dL (1.7-2.9) 09/16/21 04:50 Total Bilirubin 0.30 mg/dL (0.2-1.0) 09/16/21 04:50 AST 26 Units/L (15-37) 09/16/21 04:50 ALT 32 Units/L (12-78) 09/16/21 04:50 Alkaline Phosphatase 214 Units/L (46-116) H 09/16/21 04:50 C-Reactive Protein 11.40 mg/L (0-3.0) H 09/16/21 04:50 Total Protein 6.2 g/dL (6.4-8.2) L 09/16/21 04:50 Albumin 2.0 g/dL (3.4-5.0) L 09/16/21 04:50 Globulin 4.2 g/dL (2.5-4.5) 09/16/21 04:50 Albumin/Globulin Ratio 0.5 Ratio (1.1-2.1) L 09/16/21 04:50 Prealbumin 15.3 mg/dL (18-35.7) L 09/16/21 04:50 Triglycerides 162 mg/dL (0-150) H 09/16/21 04:50 SARS-CoV-2 (PCR) Positive (NEGATIVE) A 09/05/21 08:40 Influenza Type A (PCR) Negative (NEGATIVE) 09/05/21 08:40 Influenza Type B (PCR) Negative (NEGATIVE) 09/05/21 08:40 RSV (PCR) Negative (NEGATIVE) 09/05/21 08:40 Plan (1) COVID-19: Status: Acute Plan: Pneumonia protocol (2) Chronic obstructive pulmonary disease with acute respiratory distress: Status: Acute (3) Acute renal failure: Status: Acute (4) Dehydration: Status: Acute
--- NOTE | 2021-09-16 12:01 | PCM.PROG ---
Progress Note Progress Note for Day of Date of Exam: 09/16/21 Subjective Subjective: Pt is a 75 year old male past medical history of COPD(BL home O2 between 2-3L), Hypertension, DMT2, admitted for COVID-19 pneumonia(positive 09/05) and hypoxia. Pt has been vaccinated with J&J vaccine, received Regen-COV outpatient. Patient's respiratory status has worsened overnight. He is currently requiring BiPAP with FiO2 100%. He is also experiencing respiratory fatigue and anxiety after being on BiPAP for prolonged period. Pt has central line placed yesterday. Labs/imaging: Wbc 7.9, Hgb 11.3, Plt 160, Na 161, K 3.9, Creatinine 1.29, Glucose 325, CRP 11, ABG: pH 7.42, pCO2 56, pO2 58, HCO3 36, O2sat 90% on BiPAP FiO2@90%. Sputum culture NGTD. CXR was obtained that revealed: Interval worsening COVID 19 pneumonia. Pt is currently on pneumonia protocol that includes: IVF D5W@28 ml/h + TPN, Solumedrol 40mg q12h, Remdesivir (completed), scheduled Bronchodilators Xopenex and Budesonide, Antibiotics: Fortaz and Diflucan, Full dose lovenox, Actemra x 1, immune supporting supplements, supplemental O2, SSI, I/S, Physical therapy, Respiratory therapy consult, Smart vest. Concern as patient appears to be depended on BiPAP and becoming more hypoxic. Discussed with patient intubation and mechanical ventilation, he will discuss with his . Nursing to notify when decision is made. Otherwise, he is currently full code. Will add IV morphine prn for air hunger. Continue to closely monitor and follow up labs/imaging. Critical care time spent 30-74 minutes in clinical assessment, reviewing labs/imaging, decision making, and documentation. Past Medical Family Social History Past Med/Fam/Surg Hx: No changes since H&P Allergies: Allergies adhesive tape Allergy (Verified 09/05/21 09:13) moxifloxacin [From Avelox] Allergy (Verified 09/05/21 09:13) Review of Systems ROS: No change since H&P Vital Signs and I&O's Vital Signs: Temperature 98.0 F Pulse Rate [Radial] 102 Pulse Rate 94 Respiratory Rate 40 Blood Pressure [Left Arm] 170/74 Blood Pressure 161/72 O2 Sat by Pulse Oximetry 88 Intake and Output: Intake & Output 09/13/21 09/14/21 09/15/21 09/16/21 23:59 23:59 23:59 23:59 Intake Total 1608 / 1608 2325 / 2325 2360 / 2360 775 / 775 Output Total 2500 / 2500 2450 / 2450 1575 / 1575 900 / 900 Balance -892 / -892 -125 / -125 785 / 785 -125 / -125 Physical Exam Oriented: Normal Eyes: Normal Ear: Normal Nose: Normal Throat: Normal Respiratory: Diminished and Rales Cardiovascular: Normal : Normal Auscultation: Bowel Sounds: Normal Tenderness: Normal Skin: Normal Musculoskeletal: Normal Psychiatric: Normal Mood Description: Calm and Appropriate Affect: Normal Speech Pattern: Clear and Appropriate Laboratory and Diagnostics Result Diagrams: 09/16/21 04:50 09/16/21 04:50 Labs: 09/05/21 08:23 Sputum - Expectorated Sputum Sputum Culture - Final 09/05/21 08:23 Sputum - Expectorated Sputum - Final Laboratory WBC 7.9 X10^3/uL (3.6-10.0) 09/16/21 04:50 RBC 3.70 X10^6/uL (4.7-6.0) L 09/16/21 04:50 Hgb 11.3 g/dL (13.5-18.0) L 09/16/21 04:50 Hct 34.2 % (42.0-54.0) L 09/16/21 04:50 MCV 92.4 fL (80.0-100.0) 09/16/21 04:50 MCH 30.4 pg (27.0-34.0) 09/16/21 04:50 MCHC 32.9 g/dL (33.0-35.0) L 09/16/21 04:50 RDW 15.2 % (11.6-16.5) 09/16/21 04:50 Plt Count 160 X10^3/uL (150.0-450.0) 09/16/21 04:50 Plt Count Comment Adequate (ADEQUATE) 09/16/21 04:50 MPV 9.8 fL (7.4-11.0) 09/16/21 04:50 Neut % (Auto) 91.1 % (42.0-75.0) H 09/16/21 04:50 Lymph % (Auto) 5.1 % (21.0-51.0) L 09/16/21 04:50 [place] % (Auto) 3.2 % (0.0-13.0) 09/16/21 04:50 Eos % (Auto) 0.4 % (0.9-2.9) L 09/16/21 04:50 Baso % (Auto) 0.2 % (0.2-1.0) 09/16/21 04:50 Neut # (Auto) 7.2 x10^3/uL (2.2-4.8) H 09/16/21 04:50 Lymph # (Auto) 0.4 X10^3/uL (1.3-2.9) L 09/16/21 04:50 [place] # (Auto) 0.3 x10^3/uL (0.3-0.8) 09/16/21 04:50 Eos # (Auto) 0.0 x10^3/uL (0.0-0.2) 09/16/21 04:50 Baso # (Auto) 0.0 X10^3/uL (0.0-0.1) 09/16/21 04:50 Absolute Nucleated RBC 0.1 /100WBC 09/16/21 04:50 Total Counted 100 09/16/21 04:50 Neutrophils % (Manual) 93 % (39-76) H 09/16/21 04:50 Band Neutrophils % 1 % (0-10) 09/14/21 04:51 Lymphocytes % (Manual) 6 % (13-43) L 09/16/21 04:50 Monocytes % (Manual) 1 % (4-9) L 09/16/21 04:50 Eosinophils % (Manual) 2 % (0-6) 09/11/21 04:37 Plt Morphology Comment Normal (NORMAL) 09/16/21 04:50 RBC Morphology Normal (NORMAL) 09/16/21 04:50 D-Dimer 1.79 ug/ml (0.0-0.57) H* 09/05/21 08:19 Sample Site Rrad 09/16/21 05:55 ABG pH 7.420 (7.35-7.45) 09/16/21 05:55 ABG pCO2 56.0 mmHg (35.0-45.0) H* 09/16/21 05:55 ABG pO2 58.0 mmHg (80.0-100.0) L 09/16/21 05:55 ABG HCO3 36.3 mmol/L (22-26) H* 09/16/21 05:55 ABG O2 Saturation 90.0 % (90-100) 09/16/21 05:55 ABG Base Excess 9.9 mmol/L (-2.0-2.0) H 09/16/21 05:55 Mir Test Pos 09/16/21 05:55 A-a Gradient 514.0 mmHg 09/16/21 05:55 FiO2 90.0 09/16/21 05:55 Blood Gas Comments Brian abg well-mtf 09/16/21 05:55 Sodium 161 mmol/L (136-145) H* 09/16/21 04:50 Corrected Sodium 166 mmol/L (136-145) H 09/16/21 04:50 Potassium 3.9 mmol/L (3.5-5.1) 09/16/21 04:50 Chloride 123 mmol/L (98-107) H* 09/16/21 04:50 Carbon Dioxide 34.4 mmol/L (21-32) H 09/16/21 04:50 BUN 53 mg/dL (7-18) H 09/16/21 04:50 Creatinine 1.29 mg/dL (0.70-1.30) 09/16/21 04:50 Est GFR (MDRD) Af Amer > 60 (>60) 09/16/21 04:50 Est GFR (MDRD) Non-Af 58 (>60) L 09/16/21 04:50 Glucose 325 mg/dL (65-99) H 09/16/21 04:50 POC Glucose (mg/dL) 279 mg/dL (65-99) H 09/16/21 11:00 Calcium 8.5 mg/dL (8.5-10.1) 09/16/21 04:50 Corrected Calcium 10.1 mg/dL (8.5-10.1) 09/16/21 04:50 Phosphorus 2.8 mg/dL (2.6-4.7) 09/16/21 04:50 Magnesium 2.8 mg/dL (1.7-2.9) 09/16/21 04:50 Total Bilirubin 0.30 mg/dL (0.2-1.0) 09/16/21 04:50 AST 26 Units/L (15-37) 09/16/21 04:50 ALT 32 Units/L (12-78) 09/16/21 04:50 Alkaline Phosphatase 214 Units/L (46-116) H 09/16/21 04:50 C-Reactive Protein 11.40 mg/L (0-3.0) H 09/16/21 04:50 Total Protein 6.2 g/dL (6.4-8.2) L 09/16/21 04:50 Albumin 2.0 g/dL (3.4-5.0) L 09/16/21 04:50 Globulin 4.2 g/dL (2.5-4.5) 09/16/21 04:50 Albumin/Globulin Ratio 0.5 Ratio (1.1-2.1) L 09/16/21 04:50 Prealbumin 15.3 mg/dL (18-35.7) L 09/16/21 04:50 Triglycerides 162 mg/dL (0-150) H 09/16/21 04:50 SARS-CoV-2 (PCR) Positive (NEGATIVE) A 09/05/21 08:40 Influenza Type A (PCR) Negative (NEGATIVE) 09/05/21 08:40 Influenza Type B (PCR) Negative (NEGATIVE) 09/05/21 08:40 RSV (PCR) Negative (NEGATIVE) 09/05/21 08:40 Plan (1) COVID-19: Status: Acute Plan: Pneumonia protocol (2) Chronic obstructive pulmonary disease with acute respiratory distress: Status: Acute (3) Acute renal failure: Status: Acute (4) Dehydration: Status: Acute
[2021-09-16] MEDS: PROVENTIL NEB TX 0.083% 2.5MG/ 3ML IN PRN (13:00)
[2021-09-16] MEDS ORDERED: MORPHINE SULFATE INJ 2 MG INJ IVP ONE (13:17)
[2021-09-16] MEDS: ATIVAN INJ 2 MG VIAL IVP PRN ×3 (13:33→22:14)
[2021-09-16] MEDS: MORPHINE SULFATE INJ 4 MG IVP PRN ×2 (19:30→23:55)
[2021-09-16] MEDS: SNACK - Diabetic Appropriate PO SCH (20:43)
[2021-09-17] MEDS: D5W 1,000 ML IV 1,000 ML IV SCH (03:05)
[2021-09-17] MEDS: ATIVAN INJ 2 MG VIAL IVP PRN ×2 (03:09→11:21)
[2021-09-17] MEDS: LOPRESSOR INJ 5 MG AMP IVP SCH ×3 (04:00→17:01)
[2021-09-17] MEDS: MORPHINE SULFATE INJ 4 MG IVP PRN ×2 (05:05→10:30)
[2021-09-17 05:13] LABS: ABG BASE EXCESS 12.8 mmol/L (-2.0-2.0)
[2021-09-17 05:35] LABS: BASOPHILS # (AUTO) 0.1 X10^3/uL (0.0-0.1); BASOPHILS % (AUTO) 1.2 % (0.2-1.0); EOSINOPHILS # (AUTO) 0.4 x10^3/uL (0.0-0.2); EOSINOPHILS % (AUTO) 7.9 % (0.9-2.9); HEMATOCRIT 35.1 % (42.0-54.0); HEMOGLOBIN 11.5 g/dL (13.5-18.0); LYMPHOCYTES # (AUTO) 0.7 X10^3/uL (1.3-2.9); LYMPHOCYTES % (AUTO) 13.5 % (21.0-51.0); MEAN CORPUSCULAR HEMOGLOBIN 30.4 pg (27.0-34.0); MEAN CORPUSCULAR HGB CONC 32.6 g/dL (33.0-35.0); MEAN CORPUSCULAR VOLUME 93.1 fL (80.0-100.0); MEAN PLATELET VOLUME 9.7 fL (7.4-11.0); MONOCYTES # (AUTO) 0.3 x10^3/uL (0.3-0.8); MONOCYTES % (AUTO) 5.4 % (0.0-13.0); NEUTROPHILS # (AUTO) 3.7 x10^3/uL (2.2-4.8); RED BLOOD COUNT 3.77 X10^6/uL (4.7-6.0); RED CELL DISTRIBUTION WIDTH 15.4 % (11.6-16.5); WHITE BLOOD COUNT 5.1 X10^3/uL (3.6-10.0)
[2021-09-17 05:54] LABS: ALANINE AMINOTRANSFERASE 34 Units/L (12-78); ALBUMIN 2.1 g/dL (3.4-5.0); ALKALINE PHOSPHATASE 171 Units/L (46-116); ASPARTATE AMINO TRANSFERASE 29 Units/L (15-37); BLOOD UREA NITROGEN 50 mg/dL (7-18); CALCIUM 8.8 mg/dL (8.5-10.1); CARBON DIOXIDE 34.4 mmol/L (21-32); COR CA(FOR HYPOALB) 10.3 mg/dL (8.5-10.1); CREATININE 1.18 mg/dL (0.70-1.30); TOTAL PROTEIN 6.3 g/dL (6.4-8.2); eGFR NON BLACK RACES > 60 (>60)
[2021-09-17 06:07] LABS: CHLORIDE 126 mmol/L (98-107); SODIUM 165 mmol/L (136-145)
--- NOTE | 2021-09-17 06:36 | RAD ---
HISTORYCOVID PNEUMONIASTUDYCHEST, 1 [id number]/20/2022.TECHNIQUEAP view of the chestFINDINGSRight IJ central line in good position. Status post median sternotomy.The cardiac and mediastinal contours appear stable. Similar appearance of bilateral hazy and interstitial pulmonary opacities. No definite pleural effusion or pneumothorax.IMPRESSIONNo significant change.Electronically signed by: Ke Mckay (Sep 17, 2021 06:34:58)
[2021-09-17] MEDS: BROVANA IN SCH ×2 (07:45→21:10)
[2021-09-17] MEDS: MUCOMYST (RESPIRATORY USE ONLY) NEB SCH ×2 (07:45→21:10)
[2021-09-17] MEDS: PULMICORT NEB TX 0.5 MG NEB SCH ×2 (07:45→21:10)
[2021-09-17 08:10] LABS: ABG ALLEN TEST POS
[2021-09-17 08:51] LABS: ABG HCO3 40.3 mmol/L (22-26)
[2021-09-17] MEDS: NYSTATIN POWDER TOP SCH (10:32)
[2021-09-17] MEDS: SOLU-Medrol 40 MG VIAL IVP SCH (10:32)
[2021-09-17] MEDS: PEPCID 20 MG VIAL 20 MG in NS 50 ML IV 50 ML IV SCH (10:32)
[2021-09-17] MEDS: LOVENOX INJ 100 MG SYR SC SCH (10:32)
[2021-09-17] MEDS: PROTONIX INJ 40 MG VIAL IVP SCH (10:33)
[2021-09-17] MEDS: NovoLIN R (or HumuLIN R) SUBCUT PRN ×2 (12:36→17:01)
[2021-09-17] MEDS ORDERED: ATIVAN INJ 2 MG VIAL IVP ONE (18:00)
[2021-09-17] MEDS ORDERED: MORPHINE SULFATE INJ 4 MG IVP ONE ×2 (18:00→23:15)
[2021-09-17] MEDS ORDERED: DEXTROSE 10% IV ONE (18:50)
[2021-09-17] MEDS ORDERED: LOPRESSOR INJ 5 MG AMP IVP ONE (21:00)
[2021-09-17] MEDS ORDERED: HumuLIN 70/30 (NovoLIN 70/30) SC ONE (21:00)
[2021-09-17] MEDS ORDERED: LOVENOX INJ 100 MG SYR SC ONE (21:00)
[2021-09-17] MEDS ORDERED: PULMICORT NEB TX 0.5 MG NEB ONE (21:10)
[2021-09-17] MEDS ORDERED: MUCOMYST (RESPIRATORY USE ONLY) IN ONE (21:10)
[2021-09-17] MEDS ORDERED: BROVANA IN ONE (21:10)
[2021-09-18] MEDS ORDERED: PULMICORT NEB TX 0.5 MG NEB ONE (08:50)
[2021-09-18] MEDS ORDERED: BROVANA IN ONE (08:50)
[2021-09-18] MEDS ORDERED: MUCOMYST (RESPIRATORY USE ONLY) IN ONE (08:50)
[2021-09-18 13:14] LABS: ALANINE AMINOTRANSFERASE 39 Units/L (12-78); ALBUMIN 1.9 g/dL (3.4-5.0); ALKALINE PHOSPHATASE 147 Units/L (46-116); ASPARTATE AMINO TRANSFERASE 38 Units/L (15-37); BLOOD UREA NITROGEN 50 mg/dL (7-18); CALCIUM 8.3 mg/dL (8.5-10.1); CARBON DIOXIDE 33.9 mmol/L (21-32); COR NA(FOR HYPERGLY) 163 mmol/L (136-145); TOTAL PROTEIN 5.9 g/dL (6.4-8.2); eGFR NON BLACK RACES > 60 (>60)
[2021-09-18 13:15] LABS: CHLORIDE 125 mmol/L (98-107); SODIUM 162 mmol/L (136-145)
[2021-09-18 13:31] LABS: HEMATOCRIT 33.4 % (42.0-54.0); HEMOGLOBIN 10.7 g/dL (13.5-18.0); MEAN CORPUSCULAR HEMOGLOBIN 30.2 pg (27.0-34.0); MEAN CORPUSCULAR HGB CONC 32.1 g/dL (33.0-35.0); RED BLOOD COUNT 3.55 X10^6/uL (4.7-6.0); WHITE BLOOD COUNT 4.4 X10^3/uL (3.6-10.0)
[2021-09-18 13:32] LABS: BASOPHILS % (AUTO) 0.4 % (0.2-1.0); EOSINOPHILS # (AUTO) 0.3 x10^3/uL (0.0-0.2); EOSINOPHILS % (AUTO) 6.7 % (0.9-2.9); LYMPHOCYTES # (AUTO) 0.7 X10^3/uL (1.3-2.9); LYMPHOCYTES % (AUTO) 16.7 % (21.0-51.0); MONOCYTES # (AUTO) 0.2 x10^3/uL (0.3-0.8); MONOCYTES % (AUTO) 4.2 % (0.0-13.0); NEUTROPHILS # (AUTO) 3.2 x10^3/uL (2.2-4.8); RED CELL DISTRIBUTION WIDTH 15.5 % (11.6-16.5)
--- NOTE | 2021-09-18 14:27 | RAD ---
HISTORYFollow-up COVID-19, shortness of breathSTUDYChest AP [id number]/21/2022FINDINGSPati ent is status post median sternotomy and CABG. There is a right IJ line in good position. Heart remains enlarged. Bilateral predominantly interstitial but some ground-glass infiltrates are present and unchanged. No pleural effusions or pneumothoraces are identified. Bony thorax is unremarkable.IMPRESSIONNo significant change from the prior examinationElectronically signed by: NOBLE HOFF (Sep 18, 2021 14:25:35)
[2021-09-18] MEDS: NovoLIN R (or HumuLIN R) SUBCUT PRN ×2 (14:30→16:14)
[2021-09-18] MEDS: SNACK - Diabetic Appropriate PO SCH ×2 (15:37→21:16)
[2021-09-18] MEDS: LOPRESSOR INJ 5 MG AMP IVP SCH ×5 (15:37→21:13)
[2021-09-18] MEDS: LOVENOX INJ 100 MG SYR SC SCH ×3 (15:38→21:13)
[2021-09-18] MEDS: NYSTATIN POWDER TOP SCH ×3 (15:38→21:15)
[2021-09-18] MEDS: PEPCID 20 MG VIAL 20 MG in NS 50 ML IV 50 ML IV SCH (15:38)
[2021-09-18] MEDS: SOLU-Medrol 40 MG VIAL IVP SCH (15:39)
[2021-09-18] MEDS: PROTONIX INJ 40 MG VIAL IVP SCH (15:39)
[2021-09-18] MEDS: MORPHINE SULFATE INJ 4 MG IVP PRN ×2 (16:13→22:20)
[2021-09-18] MEDS: D5W 1,000 ML IV 1,000 ML IV SCH (16:13)
[2021-09-18] MEDS: ATIVAN INJ 2 MG VIAL IVP PRN ×2 (16:19→20:40)
--- NOTE | 2021-09-18 17:21 | PCM.PROG ---
Progress Note Progress Note for Day of Date of Exam: 09/18/21 Subjective Subjective: Pt is a 75 year old male past medical history of COPD(BL home O2 between 2-3L), Hypertension, DMT2, admitted for COVID-19 pneumonia(positive 09/05) and hypoxia. Pt has been vaccinated with J&J vaccine, received Regen-COV outpatient. Patient's respiratory status shows no change overnight. He is currently requiring BiPAP with FiO2 90%. He is also experiencing respiratory fatigue and anxiety after being on BiPAP for prolonged period. Pt has central line placed 2 days ago. Labs/imaging: Wbc 4.4, Hgb 10.7, Plt 119, Na 162, K 4.0, Creatinine 1.10, Glucose 146, O2sat 90% on BiPAP FiO2@90. Sputum culture NGTD. CXR was obtained that revealed: Interval worsening COVID 19 pneumonia. Pt is currently on pneumonia protocol that includes: IVF D5W@28 ml/h + TPN, Solumedrol 40mg q12h, Remdesivir (completed), scheduled Bronchodilators Xopenex and Budesonide, Antibiotics: Fortaz and Diflucan, Full dose lovenox, Actemra x 1, immune supporting supplements, supplemental O2, SSI, I/S, Physical therapy, Respiratory therapy consult, Smart vest. Concern as patient appears to be depended on BiPAP and becoming more hypoxic. Discussed with patient intubation and mechanical ventilation, he will discuss with his . Nursing to notify when decision is made. Otherwise, he is currently full code. Will add IV morphine prn for air hunger. Continue to closely monitor and follow up labs/imaging. Critical care time greater than 45 minutes in clinical assessment, reviewing labs/imaging, decision making, and documentation. Past Medical Family Social History Past Med/Fam/Surg Hx: No changes since H&P Allergies: Allergies adhesive tape Allergy (Verified 09/05/21 09:13) moxifloxacin [From Avelox] Allergy (Verified 09/05/21 09:13) Review of Systems ROS: No change since H&P Vital Signs and I&O's Vital Signs: Temperature 98.4 F Pulse Rate [Radial] 102 Pulse Rate 88 Respiratory Rate 20 Blood Pressure [Left Arm] 170/74 Blood Pressure 123/60 O2 Sat by Pulse Oximetry 87 Intake and Output: Intake & Output 09/16/21 09/17/21 09/18/21 09/19/21 11:59 11:59 11:59 11:59 Intake Total 2655 / 2655 1642 / 1642 718 / 718 291 / 291 Output Total 5 / 5 1625 / 1625 450 / 450 250 / 250 Balance 580 / 580 268 / 268 41 / 41 Physical Exam Oriented: Normal Eyes: Normal Ear: Normal Nose: Normal Throat: Normal Respiratory: Diminished and Rales Cardiovascular: Normal : Normal Auscultation: Bowel Sounds: Normal Tenderness: Normal Skin: Normal Musculoskeletal: Normal Psychiatric: Normal Mood Description: Calm and Appropriate Affect: Normal Speech Pattern: Clear and Appropriate Laboratory and Diagnostics Result Diagrams: 09/18/21 05:00 09/18/21 05:00 Labs: 09/05/21 08:23 Sputum - Expectorated Sputum Sputum Culture - Final 09/05/21 08:23 Sputum - Expectorated Sputum - Final Laboratory WBC 4.4 X10^3/uL (3.6-10.0) 09/18/21 05:00 RBC 3.55 X10^6/uL (4.7-6.0) L 09/18/21 05:00 Hgb 10.7 g/dL (13.5-18.0) L 09/18/21 05:00 Hct 33.4 % (42.0-54.0) L 09/18/21 05:00 MCV 94.0 fL (80.0-100.0) 09/18/21 05:00 MCH 30.2 pg (27.0-34.0) 09/18/21 05:00 MCHC 32.1 g/dL (33.0-35.0) L 09/18/21 05:00 RDW 15.5 % (11.6-16.5) 09/18/21 05:00 Plt Count 119 X10^3/uL (150.0-450.0) L 09/18/21 05:00 Plt Count Comment Adequate (ADEQUATE) 09/16/21 04:50 MPV 10.0 fL (7.4-11.0) 09/18/21 05:00 Neut % (Auto) 72.0 % (42.0-75.0) 09/18/21 05:00 Lymph % (Auto) 16.7 % (21.0-51.0) L 09/18/21 05:00 [place] % (Auto) 4.2 % (0.0-13.0) 09/18/21 05:00 Eos % (Auto) 6.7 % (0.9-2.9) H 09/18/21 05:00 Baso % (Auto) 0.4 % (0.2-1.0) 09/18/21 05:00 Neut # (Auto) 3.2 x10^3/uL (2.2-4.8) 09/18/21 05:00 Lymph # (Auto) 0.7 X10^3/uL (1.3-2.9) L 09/18/21 05:00 [place] # (Auto) 0.2 x10^3/uL (0.3-0.8) L 09/18/21 05:00 Eos # (Auto) 0.3 x10^3/uL (0.0-0.2) H 09/18/21 05:00 Baso # (Auto) 0.0 X10^3/uL (0.0-0.1) 09/18/21 05:00 Absolute Nucleated RBC 0.2 /100WBC 09/18/21 05:00 Total Counted 100 09/16/21 04:50 Neutrophils % (Manual) 93 % (39-76) H 09/16/21 04:50 Band Neutrophils % 1 % (0-10) 09/14/21 04:51 Lymphocytes % (Manual) 6 % (13-43) L 09/16/21 04:50 Monocytes % (Manual) 1 % (4-9) L 09/16/21 04:50 Eosinophils % (Manual) 2 % (0-6) 09/11/21 04:37 Plt Morphology Comment Normal (NORMAL) 09/16/21 04:50 RBC Morphology Normal (NORMAL) 09/16/21 04:50 D-Dimer 1.79 ug/ml (0.0-0.57) H* 09/05/21 08:19 Sample Site Rr 09/17/21 05:06 ABG pH 7.400 (7.35-7.45) 09/17/21 05:06 ABG pCO2 65.0 mmHg (35.0-45.0) H* 09/17/21 05:06 ABG pO2 64.0 mmHg (80.0-100.0) L 09/17/21 05:06 ABG HCO3 40.3 mmol/L (22-26) H* 09/17/21 05:06 ABG O2 Saturation 92.0 % (90-100) 09/17/21 05:06 ABG Base Excess 12.8 mmol/L (-2.0-2.0) H 09/17/21 05:06 Mir Test Pos 09/17/21 05:06 A-a Gradient 425.0 mmHg 09/17/21 05:06 FiO2 80.0 09/17/21 05:06 Blood Gas Comments Pt bryson well.vivek 09/17/21 05:06 Sodium 162 mmol/L (136-145) H* 09/18/21 05:00 Corrected Sodium 163 mmol/L (136-145) H 09/18/21 05:00 Potassium 4.0 mmol/L (3.5-5.1) 09/18/21 05:00 Chloride 125 mmol/L (98-107) H* 09/18/21 05:00 Carbon Dioxide 33.9 mmol/L (21-32) H 09/18/21 05:00 BUN 50 mg/dL (7-18) H 09/18/21 05:00 Creatinine 1.10 mg/dL (0.70-1.30) 09/18/21 05:00 Est GFR (MDRD) Af Amer > 60 (>60) 09/18/21 05:00 Est GFR (MDRD) Non-Af > 60 (>60) 09/18/21 05:00 Glucose 146 mg/dL (65-99) H 09/18/21 05:00 POC Glucose (mg/dL) 178 mg/dL (65-99) H 09/17/21 16:39 Calcium 8.3 mg/dL (8.5-10.1) L 09/18/21 05:00 Corrected Calcium 10.0 mg/dL (8.5-10.1) 09/18/21 05:00 Phosphorus 2.8 mg/dL (2.6-4.7) 09/16/21 04:50 Magnesium 2.8 mg/dL (1.7-2.9) 09/16/21 04:50 Total Bilirubin 0.30 mg/dL (0.2-1.0) 09/18/21 05:00 AST 38 Units/L (15-37) H 09/18/21 05:00 ALT 39 Units/L (12-78) 09/18/21 05:00 Alkaline Phosphatase 147 Units/L (46-116) H 09/18/21 05:00 C-Reactive Protein 5.90 mg/L (0-3.0) H 09/17/21 04:44 Total Protein 5.9 g/dL (6.4-8.2) L 09/18/21 05:00 Albumin 1.9 g/dL (3.4-5.0) L 09/18/21 05:00 Globulin 4.0 g/dL (2.5-4.5) 09/18/21 05:00 Albumin/Globulin Ratio 0.5 Ratio (1.1-2.1) L 09/18/21 05:00 Prealbumin 15.3 mg/dL (18-35.7) L 09/16/21 04:50 Triglycerides 162 mg/dL (0-150) H 09/16/21 04:50 SARS-CoV-2 (PCR) Positive (NEGATIVE) A 09/05/21 08:40 Influenza Type A (PCR) Negative (NEGATIVE) 09/05/21 08:40 Influenza Type B (PCR) Negative (NEGATIVE) 09/05/21 08:40 RSV (PCR) Negative (NEGATIVE) 09/05/21 08:40 Radiology Reviewed: Yes Plan (1) COVID-19: Status: Acute Narrative Support Text: No significant improvment since yesterday. Plan: Pneumonia protocol (2) Chronic obstructive pulmonary disease with acute respiratory distress: Status: Acute (3) Acute renal failure: Status: Acute Narrative Support Text: Improved. (4) Dehydration: Status: Acute Narrative Support Text: Resolved. (5) Hypernatremia: Status: Acute Plan: Continue D5W
[2021-09-18 18:09] LABS: ABG BASE EXCESS 13.3 mmol/L (-2.0-2.0)
[2021-09-18 18:10] LABS: ABG ALLEN TEST POS; ABG HCO3 41.2 mmol/L (22-26)
[2021-09-18] MEDS: BROVANA IN SCH (20:30)
[2021-09-18] MEDS: MUCOMYST (RESPIRATORY USE ONLY) NEB SCH (20:30)
[2021-09-18] MEDS: PULMICORT NEB TX 0.5 MG NEB SCH (20:30)
[2021-09-19] MEDS: ATIVAN INJ 2 MG VIAL IVP PRN ×4 (01:50→22:05)
[2021-09-19] MEDS: LOPRESSOR INJ 5 MG AMP IVP SCH ×4 (03:10→20:57)
[2021-09-19] MEDS: MORPHINE SULFATE INJ 4 MG IVP PRN ×4 (04:15→20:30)
[2021-09-19 05:20] LABS: ABG BASE EXCESS 11.3 mmol/L (-2.0-2.0)
[2021-09-19 05:24] LABS: ABG ALLEN TEST POSTIVE; ABG HCO3 39.7 mmol/L (22-26)
[2021-09-19 05:41] LABS: BASOPHILS % (AUTO) 0.4 % (0.2-1.0); EOSINOPHILS # (AUTO) 0.4 x10^3/uL (0.0-0.2); EOSINOPHILS % (AUTO) 7.1 % (0.9-2.9); HEMATOCRIT 34.5 % (42.0-54.0); HEMOGLOBIN 11.1 g/dL (13.5-18.0); LYMPHOCYTES # (AUTO) 0.9 X10^3/uL (1.3-2.9); LYMPHOCYTES % (AUTO) 14.4 % (21.0-51.0); MEAN CORPUSCULAR HEMOGLOBIN 30.3 pg (27.0-34.0); MEAN CORPUSCULAR HGB CONC 32.2 g/dL (33.0-35.0); MEAN CORPUSCULAR VOLUME 93.9 fL (80.0-100.0); MEAN PLATELET VOLUME 10.1 fL (7.4-11.0); MONOCYTES # (AUTO) 0.2 x10^3/uL (0.3-0.8); MONOCYTES % (AUTO) 3.3 % (0.0-13.0); NEUTROPHILS # (AUTO) 4.7 x10^3/uL (2.2-4.8); NEUTROPHILS % (AUTO) 74.8 % (42.0-75.0); RED BLOOD COUNT 3.67 X10^6/uL (4.7-6.0); RED CELL DISTRIBUTION WIDTH 15.8 % (11.6-16.5); WHITE BLOOD COUNT 6.3 X10^3/uL (3.6-10.0)
[2021-09-19 06:01] LABS: ALANINE AMINOTRANSFERASE 43 Units/L (12-78); ALBUMIN 1.9 g/dL (3.4-5.0); ALKALINE PHOSPHATASE 150 Units/L (46-116); ASPARTATE AMINO TRANSFERASE 40 Units/L (15-37); BLOOD UREA NITROGEN 55 mg/dL (7-18); CALCIUM 8.2 mg/dL (8.5-10.1); CARBON DIOXIDE 32.9 mmol/L (21-32); COR CA(FOR HYPOALB) 9.9 mg/dL (8.5-10.1); COR NA(FOR HYPERGLY) 160 mmol/L (136-145); CREATININE 1.24 mg/dL (0.70-1.30); TOTAL PROTEIN 6.2 g/dL (6.4-8.2); eGFR NON BLACK RACES > 60 (>60)
[2021-09-19 06:07] LABS: CHLORIDE 124 mmol/L (98-107); SODIUM 160 mmol/L (136-145)
--- NOTE | 2021-09-19 06:46 | RAD ---
HISTORYCOVID+, RESPIRATORY FAILURE, COPD, PNEU FOLLOW UPSTUDYCHEST, 1 VIEWCOMPARISONNone availableFINDINGSStable positioning of right IJ central venous catheter without pneumothorax. The trachea is deviated to the right. Heart size enlarged. No significant change in increased interstitial opacities with a lung predominance. No moderate or large pleural effusion. No acute osseous.IMPRESSIONStable cardiomegaly and lower lung zone predominant increased interstitial opacities.Electronically signed by: NICOLÁS SPEARS (Sep 19, 2021 06:45:14)
[2021-09-19] MEDS: NYSTATIN POWDER TOP SCH ×2 (08:44→20:59)
[2021-09-19] MEDS: PROTONIX INJ 40 MG VIAL IVP SCH (08:44)
[2021-09-19] MEDS: SOLU-Medrol 40 MG VIAL IVP SCH (08:44)
[2021-09-19] MEDS: PEPCID 20 MG VIAL 20 MG in NS 50 ML IV 50 ML IV SCH (08:45)
[2021-09-19] MEDS: LOVENOX INJ 100 MG SYR SC SCH ×2 (08:46→20:58)
[2021-09-19] MEDS: D5W 1,000 ML IV 1,000 ML IV SCH (08:47)
[2021-09-19] MEDS: PULMICORT NEB TX 0.5 MG NEB SCH ×2 (08:58→21:20)
[2021-09-19] MEDS: BROVANA IN SCH ×2 (08:58→21:20)
[2021-09-19] MEDS: MUCOMYST (RESPIRATORY USE ONLY) NEB SCH ×2 (08:58→21:20)
--- NOTE | 2021-09-19 16:55 | PCM.PROG ---
Progress Note Progress Note for Day of Date of Exam: 09/19/21 Subjective Subjective: Pt is a 75 year old male past medical history of COPD(BL home O2 between 2-3L), Hypertension, DMT2, admitted for COVID-19 pneumonia(positive 09/05) and hypoxia. Pt has been vaccinated with J&J vaccine, received Regen-COV outpatient. Patient's respiratory status shows no change overnight. He is currently requiring BiPAP with FiO2 90%. He is also experiencing respiratory fatigue. Pt has central line placed 3 days ago. Labs/imaging: Wbc 4.4, Hgb 11.1, Plt 150, Na 160, K 4.4, Creatinine 1.24, Glucose 119, O2sat 97% on BiPAP FiO2@80. Sputum culture NGTD. CXR was obtained that revealed: Interval worsening COVID 19 pneumonia. Pt is currently on pneumonia protocol that includes: IVF D5W@28 ml/h + TPN, Solumedrol 40mg q12h, Remdesivir (completed), scheduled Bronchodilators Xopenex and Budesonide, Antibiotics: Fortaz and Diflucan, Full dose lovenox, Actemra x 1, immune supporting supplements, supplemental O2, SSI, I/S, Physical therapy, Respiratory therapy consult, Smart vest. Concern as p atient appears to be depended on BiPAP and becoming more hypoxic. Discussed with family this morning. The patient does not want to be intubated. Patient's condition is worsening since yesterday. Past Medical Family Social History Past Med/Fam/Surg Hx: No changes since H&P Allergies: Allergies adhesive tape Allergy (Verified 09/05/21 09:13) moxifloxacin [From Avelox] Allergy (Verified 09/05/21 09:13) Review of Systems ROS: No change since H&P Vital Signs and I&O's Vital Signs: Temperature 98 F Pulse Rate [Radial] 102 Pulse Rate 85 Respiratory Rate 20 Blood Pressure [Left Arm] 170/74 Blood Pressure 107/48 O2 Sat by Pulse Oximetry 97 Intake and Output: Intake & Output 09/17/21 09/18/21 09/19/21 09/20/21 11:59 11:59 11:59 11:59 Intake Total 1642 / 1642 718 / 718 676 / 676 300 / 300 Output Total 1625 / 1625 450 / 450 875 / 875 450 / 450 Balance 268 / 268 -199 / -199 -150 / -150 Physical Exam Oriented: Normal Eyes: Normal Ear: Normal Nose: Normal Throat: Normal Respiratory: Diminished and Rales Cardiovascular: Normal : Normal Auscultation: Bowel Sounds: Normal Tenderness: Normal Skin: Normal Musculoskeletal: Normal Psychiatric: Normal Mood Description: Calm and Appropriate Affect: Normal Speech Pattern: Clear and Appropriate Laboratory and Diagnostics Result Diagrams: 09/19/21 05:15 09/19/21 05:15 Labs: 09/05/21 08:23 Sputum - Expectorated Sputum Sputum Culture - Final 09/05/21 08:23 Sputum - Expectorated Sputum - Final Laboratory WBC 6.3 X10^3/uL (3.6-10.0) 09/19/21 05:15 RBC 3.67 X10^6/uL (4.7-6.0) L 09/19/21 05:15 Hgb 11.1 g/dL (13.5-18.0) L 09/19/21 05:15 Hct 34.5 % (42.0-54.0) L 09/19/21 05:15 MCV 93.9 fL (80.0-100.0) 09/19/21 05:15 MCH 30.3 pg (27.0-34.0) 09/19/21 05:15 MCHC 32.2 g/dL (33.0-35.0) L 09/19/21 05:15 RDW 15.8 % (11.6-16.5) 09/19/21 05:15 Plt Count 150 X10^3/uL (150.0-450.0) 09/19/21 05:15 Plt Count Comment Adequate (ADEQUATE) 09/16/21 04:50 MPV 10.1 fL (7.4-11.0) 09/19/21 05:15 Neut % (Auto) 74.8 % (42.0-75.0) 09/19/21 05:15 Lymph % (Auto) 14.4 % (21.0-51.0) L 09/19/21 05:15 [place] % (Auto) 3.3 % (0.0-13.0) 09/19/21 05:15 Eos % (Auto) 7.1 % (0.9-2.9) H 09/19/21 05:15 Baso % (Auto) 0.4 % (0.2-1.0) 09/19/21 05:15 Neut # (Auto) 4.7 x10^3/uL (2.2-4.8) 09/19/21 05:15 Lymph # (Auto) 0.9 X10^3/uL (1.3-2.9) L 09/19/21 05:15 [place] # (Auto) 0.2 x10^3/uL (0.3-0.8) L 09/19/21 05:15 Eos # (Auto) 0.4 x10^3/uL (0.0-0.2) H 09/19/21 05:15 Baso # (Auto) 0.0 X10^3/uL (0.0-0.1) 09/19/21 05:15 Absolute Nucleated RBC 0.1 /100WBC 09/19/21 05:15 Total Counted 100 09/16/21 04:50 Neutrophils % (Manual) 93 % (39-76) H 09/16/21 04:50 Band Neutrophils % 1 % (0-10) 09/14/21 04:51 Lymphocytes % (Manual) 6 % (13-43) L 09/16/21 04:50 Monocytes % (Manual) 1 % (4-9) L 09/16/21 04:50 Eosinophils % (Manual) 2 % (0-6) 09/11/21 04:37 Plt Morphology Comment Normal (NORMAL) 09/16/21 04:50 RBC Morphology Normal (NORMAL) 09/16/21 04:50 D-Dimer 1.79 ug/ml (0.0-0.57) H* 09/05/21 08:19 Sample Site R rad 09/19/21 04:55 ABG pH 7.350 (7.35-7.45) 09/19/21 04:55 ABG pCO2 72.0 mmHg (35.0-45.0) H* 09/19/21 04:55 ABG pO2 101.0 mmHg (80.0-100.0) H 09/19/21 04:55 ABG HCO3 39.7 mmol/L (22-26) H* 09/19/21 04:55 ABG O2 Saturation 98.0 % (90-100) 09/19/21 04:55 ABG Base Excess 11.3 mmol/L (-2.0-2.0) H 09/19/21 04:55 Mir Test Postive 09/19/21 04:55 A-a Gradient 451.0 mmHg 09/19/21 04:55 FiO2 90.0 09/19/21 04:55 Blood Gas Comments Brian well kb 09/19/21 04:55 Sodium 160 mmol/L (136-145) H* 09/19/21 05:15 Corrected Sodium 160 mmol/L (136-145) H 09/19/21 05:15 Potassium 4.4 mmol/L (3.5-5.1) 09/19/21 05:15 Chloride 124 mmol/L (98-107) H* 09/19/21 05:15 Carbon Dioxide 32.9 mmol/L (21-32) H 09/19/21 05:15 BUN 55 mg/dL (7-18) H 09/19/21 05:15 Creatinine 1.24 mg/dL (0.70-1.30) 09/19/21 05:15 Est GFR (MDRD) Af Amer > 60 (>60) 09/19/21 05:15 Est GFR (MDRD) Non-Af > 60 (>60) 09/19/21 05:15 Glucose 119 mg/dL (65-99) H 09/19/21 05:15 POC Glucose (mg/dL) 178 mg/dL (65-99) H 09/17/21 16:39 Calcium 8.2 mg/dL (8.5-10.1) L 09/19/21 05:15 Corrected Calcium 9.9 mg/dL (8.5-10.1) 09/19/21 05:15 Phosphorus 2.8 mg/dL (2.6-4.7) 09/16/21 04:50 Magnesium 2.8 mg/dL (1.7-2.9) 09/16/21 04:50 Total Bilirubin 0.40 mg/dL (0.2-1.0) 09/19/21 05:15 AST 40 Units/L (15-37) H 09/19/21 05:15 ALT 43 Units/L (12-78) 09/19/21 05:15 Alkaline Phosphatase 150 Units/L (46-116) H 09/19/21 05:15 C-Reactive Protein 5.90 mg/L (0-3.0) H 09/17/21 04:44 Total Protein 6.2 g/dL (6.4-8.2) L 09/19/21 05:15 Albumin 1.9 g/dL (3.4-5.0) L 09/19/21 05:15 Globulin 4.3 g/dL (2.5-4.5) 09/19/21 05:15 Albumin/Globulin Ratio 0.4 Ratio (1.1-2.1) L 09/19/21 05:15 Prealbumin 15.3 mg/dL (18-35.7) L 09/16/21 04:50 Triglycerides 162 mg/dL (0-150) H 09/16/21 04:50 SARS-CoV-2 (PCR) Positive (NEGATIVE) A 09/05/21 08:40 Influenza Type A (PCR) Negative (NEGATIVE) 09/05/21 08:40 Influenza Type B (PCR) Negative (NEGATIVE) 09/05/21 08:40 RSV (PCR) Negative (NEGATIVE) 09/05/21 08:40 Radiology Reviewed: Yes Plan (1) COVID-19: Status: Acute Plan: Pneumonia protocol (2) Chronic obstructive pulmonary disease with acute respiratory distress: Status: Acute Plan: Continue current treatment. Pt is a limited DNR. (3) Acute renal failure: Status: Acute (4) Dehydration: Status: Acute (5) Hypernatremia: Status: Acute Plan: Continue D5W
[2021-09-19] MEDS: SNACK - Diabetic Appropriate PO SCH (20:58)
[2021-09-20] MEDS: MORPHINE SULFATE INJ 4 MG IVP PRN ×3 (02:35→12:00)
[2021-09-20] MEDS: LOPRESSOR INJ 5 MG AMP IVP SCH ×4 (03:00→21:22)
[2021-09-20] MEDS ORDERED: D50W ABBOJECT SYR IV ONE (05:45)
[2021-09-20] MEDS ORDERED: D50W ABBOJECT SYR ONE (05:49)
[2021-09-20] MEDS: ATIVAN INJ 2 MG VIAL IVP PRN ×4 (05:50→21:37)
--- NOTE | 2021-09-20 05:57 | PCM.PROG ---
Progress Note Progress Note for Day of Date of Exam: 09/17/21 Subjective Subjective: Pt is a 75 year old male past medical history of COPD(BL home O2 between 2-3L), Hypertension, DMT2, admitted for COVID-19 pneumonia(positive 09/05) and hypoxia. Pt has been vaccinated with J&J vaccine, received Regen-COV outpatient. Patient's respiratory status shows no change overnight. He is currently requiring BiPAP with FiO2 100%. He is also experiencing respiratory fatigue. Pt has central line. Labs/imaging: Wbc 7.9, Hgb 11.3, Plt 160, Na 161, K 3.9, Creatinine 1.29, Glucose 325. ABG: pH 7.42, pCO2 56, pO2 58, HCO3 36, O2sat 90% on BiPAP FiO2 100%. Sputum culture NGTD. CXR was obtained that revealed: Interval worsening COVID 19 pneumonia. Pt is currently on pneumonia protocol that includes: IVF D5W@28 ml/h + TPN, Solumedrol 40mg q12h, Remdesivir (completed), scheduled Bronchodilators Xopenex and Budesonide, Antibiotics: Fortaz and Diflucan, Full dose lovenox, Actemra x 1, immune supporting supplements, supplemental O2, SSI, I/S, Physical therapy, Respiratory therapy consult, Smart vest. Concern as patient appears to be depended on BiPAP and becoming more hypoxic. Discussed with family and patient does not want to be intubated. Will add IV morphine and ativan for air hunger and anxiety. Will continue to closely monitor and follow up labs/imaging. Critical care time spent 30-74 minutes in clinical assessment, reviewing labs/imaging, decision making, and documentation. Past Medical Family Social History Past Med/Fam/Surg Hx: No changes since H&P Allergies: Allergies adhesive tape Allergy (Verified 09/05/21 09:13) moxifloxacin [From Avelox] Allergy (Verified 09/05/21 09:13) Review of Systems ROS: No change since H&P Vital Signs and I&O's Vital Signs: Temperature 98.2 F Pulse Rate [Radial] 102 Pulse Rate 97 Respiratory Rate 20 Blood Pressure [Left Arm] 170/74 Blood Pressure 132/60 O2 Sat by Pulse Oximetry 96 Intake and Output: Intake & Output 09/17/21 09/18/21 09/19/21 09/20/21 23:59 23:59 23:59 23:59 Intake Total 899 / 899 515 / 515 696 / 696 Output Total 875 / 875 650 / 650 1075 / 1075 Balance -135 / -135 -379 / -379 Physical Exam Oriented: Normal Eyes: Normal Ear: Normal Nose: Normal Throat: Normal Respiratory: Diminished and Rales Cardiovascular: Normal : Normal Auscultation: Bowel Sounds: Normal Tenderness: Normal Skin: Normal Musculoskeletal: Normal Psychiatric: Normal Mood Description: Calm and Appropriate Affect: Normal Speech Pattern: Clear and Appropriate Laboratory and Diagnostics Result Diagrams: 09/19/21 05:15 09/19/21 05:15 Labs: 09/05/21 08:23 Sputum - Expectorated Sputum Sputum Culture - Final 09/05/21 08:23 Sputum - Expectorated Sputum - Final Laboratory WBC 6.3 X10^3/uL (3.6-10.0) 09/19/21 05:15 RBC 3.67 X10^6/uL (4.7-6.0) L 09/19/21 05:15 Hgb 11.1 g/dL (13.5-18.0) L 09/19/21 05:15 Hct 34.5 % (42.0-54.0) L 09/19/21 05:15 MCV 93.9 fL (80.0-100.0) 09/19/21 05:15 MCH 30.3 pg (27.0-34.0) 09/19/21 05:15 MCHC 32.2 g/dL (33.0-35.0) L 09/19/21 05:15 RDW 15.8 % (11.6-16.5) 09/19/21 05:15 Plt Count 150 X10^3/uL (150.0-450.0) 09/19/21 05:15 Plt Count Comment Adequate (ADEQUATE) 09/16/21 04:50 MPV 10.1 fL (7.4-11.0) 09/19/21 05:15 Neut % (Auto) 74.8 % (42.0-75.0) 09/19/21 05:15 Lymph % (Auto) 14.4 % (21.0-51.0) L 09/19/21 05:15 [place] % (Auto) 3.3 % (0.0-13.0) 09/19/21 05:15 Eos % (Auto) 7.1 % (0.9-2.9) H 09/19/21 05:15 Baso % (Auto) 0.4 % (0.2-1.0) 09/19/21 05:15 Neut # (Auto) 4.7 x10^3/uL (2.2-4.8) 09/19/21 05:15 Lymph # (Auto) 0.9 X10^3/uL (1.3-2.9) L 09/19/21 05:15 [place] # (Auto) 0.2 x10^3/uL (0.3-0.8) L 09/19/21 05:15 Eos # (Auto) 0.4 x10^3/uL (0.0-0.2) H 09/19/21 05:15 Baso # (Auto) 0.0 X10^3/uL (0.0-0.1) 09/19/21 05:15 Absolute Nucleated RBC 0.1 /100WBC 09/19/21 05:15 Total Counted 100 09/16/21 04:50 Neutrophils % (Manual) 93 % (39-76) H 09/16/21 04:50 Band Neutrophils % 1 % (0-10) 09/14/21 04:51 Lymphocytes % (Manual) 6 % (13-43) L 09/16/21 04:50 Monocytes % (Manual) 1 % (4-9) L 09/16/21 04:50 Eosinophils % (Manual) 2 % (0-6) 09/11/21 04:37 Plt Morphology Comment Normal (NORMAL) 09/16/21 04:50 RBC Morphology Normal (NORMAL) 09/16/21 04:50 D-Dimer 1.79 ug/ml (0.0-0.57) H* 09/05/21 08:19 Sample Site R rad 09/19/21 04:55 ABG pH 7.350 (7.35-7.45) 09/19/21 04:55 ABG pCO2 72.0 mmHg (35.0-45.0) H* 09/19/21 04:55 ABG pO2 101.0 mmHg (80.0-100.0) H 09/19/21 04:55 ABG HCO3 39.7 mmol/L (22-26) H* 09/19/21 04:55 ABG O2 Saturation 98.0 % (90-100) 09/19/21 04:55 ABG Base Excess 11.3 mmol/L (-2.0-2.0) H 09/19/21 04:55 Mir Test Postive 09/19/21 04:55 A-a Gradient 451.0 mmHg 09/19/21 04:55 FiO2 90.0 09/19/21 04:55 Blood Gas Comments Brian well kb 09/19/21 04:55 Sodium 160 mmol/L (136-145) H* 09/19/21 05:15 Corrected Sodium 160 mmol/L (136-145) H 09/19/21 05:15 Potassium 4.4 mmol/L (3.5-5.1) 09/19/21 05:15 Chloride 124 mmol/L (98-107) H* 09/19/21 05:15 Carbon Dioxide 32.9 mmol/L (21-32) H 09/19/21 05:15 BUN 55 mg/dL (7-18) H 09/19/21 05:15 Creatinine 1.24 mg/dL (0.70-1.30) 09/19/21 05:15 Est GFR (MDRD) Af Amer > 60 (>60) 09/19/21 05:15 Est GFR (MDRD) Non-Af > 60 (>60) 09/19/21 05:15 Glucose 119 mg/dL (65-99) H 09/19/21 05:15 POC Glucose (mg/dL) 178 mg/dL (65-99) H 09/17/21 16:39 Calcium 8.2 mg/dL (8.5-10.1) L 09/19/21 05:15 Corrected Calcium 9.9 mg/dL (8.5-10.1) 09/19/21 05:15 Phosphorus 2.8 mg/dL (2.6-4.7) 09/16/21 04:50 Magnesium 2.8 mg/dL (1.7-2.9) 09/16/21 04:50 Total Bilirubin 0.40 mg/dL (0.2-1.0) 09/19/21 05:15 AST 40 Units/L (15-37) H 09/19/21 05:15 ALT 43 Units/L (12-78) 09/19/21 05:15 Alkaline Phosphatase 150 Units/L (46-116) H 09/19/21 05:15 C-Reactive Protein 5.90 mg/L (0-3.0) H 09/17/21 04:44 Total Protein 6.2 g/dL (6.4-8.2) L 09/19/21 05:15 Albumin 1.9 g/dL (3.4-5.0) L 09/19/21 05:15 Globulin 4.3 g/dL (2.5-4.5) 09/19/21 05:15 Albumin/Globulin Ratio 0.4 Ratio (1.1-2.1) L 09/19/21 05:15 Prealbumin 15.3 mg/dL (18-35.7) L 09/16/21 04:50 Triglycerides 162 mg/dL (0-150) H 09/16/21 04:50 SARS-CoV-2 (PCR) Positive (NEGATIVE) A 09/05/21 08:40 Influenza Type A (PCR) Negative (NEGATIVE) 09/05/21 08:40 Influenza Type B (PCR) Negative (NEGATIVE) 09/05/21 08:40 RSV (PCR) Negative (NEGATIVE) 09/05/21 08:40 Plan (1) COVID-19: Status: Acute Plan: Pneumonia protocol (2) Chronic obstructive pulmonary disease with acute respiratory distress: Status: Acute Plan: Continue current treatment. Pt is a limited DNR. (3) Acute renal failure: Status: Acute (4) Dehydration: Status: Acute (5) Hypernatremia: Status: Acute Plan: Continue D5W
[2021-09-20 06:05] LABS: BASOPHILS % (AUTO) 0.5 % (0.2-1.0); EOSINOPHILS # (AUTO) 0.4 x10^3/uL (0.0-0.2); EOSINOPHILS % (AUTO) 7.2 % (0.9-2.9); HEMATOCRIT 31.8 % (42.0-54.0); HEMOGLOBIN 10.4 g/dL (13.5-18.0); LYMPHOCYTES # (AUTO) 0.5 X10^3/uL (1.3-2.9); LYMPHOCYTES % (AUTO) 10.1 % (21.0-51.0); MEAN CORPUSCULAR HEMOGLOBIN 30.7 pg (27.0-34.0); MEAN CORPUSCULAR HGB CONC 32.6 g/dL (33.0-35.0); MEAN CORPUSCULAR VOLUME 94.2 fL (80.0-100.0); MEAN PLATELET VOLUME 9.9 fL (7.4-11.0); MONOCYTES # (AUTO) 0.2 x10^3/uL (0.3-0.8); MONOCYTES % (AUTO) 4.6 % (0.0-13.0); NEUTROPHILS # (AUTO) 4.1 x10^3/uL (2.2-4.8); NEUTROPHILS % (AUTO) 77.6 % (42.0-75.0); RED BLOOD COUNT 3.37 X10^6/uL (4.7-6.0); RED CELL DISTRIBUTION WIDTH 15.4 % (11.6-16.5); WHITE BLOOD COUNT 5.3 X10^3/uL (3.6-10.0)
[2021-09-20 06:06] LABS: BLOOD UREA NITROGEN 59 mg/dL (7-18); CALCIUM 8.7 mg/dL (8.5-10.1); CARBON DIOXIDE 32.5 mmol/L (21-32); CREATININE 1.31 mg/dL (0.70-1.30); eGFR NON BLACK RACES 57 (>60)
[2021-09-20 06:09] LABS: CHLORIDE 125 mmol/L (98-107); SODIUM 163 mmol/L (136-145)
[2021-09-20] MEDS: D5W 1,000 ML IV 1,000 ML IV SCH (06:12)
[2021-09-20 06:35] LABS: ALANINE AMINOTRANSFERASE 49 Units/L (12-78); ALBUMIN 1.9 g/dL (3.4-5.0); ALKALINE PHOSPHATASE 140 Units/L (46-116); ASPARTATE AMINO TRANSFERASE 49 Units/L (15-37); COR CA(FOR HYPOALB) 10.4 mg/dL (8.5-10.1)
[2021-09-20 08:24] LABS: ABG BASE EXCESS 10.9 mmol/L (-2.0-2.0)
[2021-09-20 08:25] LABS: ABG ALLEN TEST POS
[2021-09-20 08:45] LABS: ABG HCO3 38.7 mmol/L (22-26)
[2021-09-20] MEDS ORDERED: PHARMACY CONSULT - TPN XX SCH (09:00)
[2021-09-20] MEDS: LOVENOX INJ 100 MG SYR SC SCH ×2 (09:42→21:20)
[2021-09-20] MEDS: NYSTATIN POWDER TOP SCH ×2 (09:43→21:20)
[2021-09-20] MEDS: PROTONIX INJ 40 MG VIAL IVP SCH (09:43)
[2021-09-20] MEDS: PEPCID 20 MG VIAL 20 MG in NS 50 ML IV 50 ML IV SCH (09:43)
[2021-09-20] MEDS: SOLU-Medrol 40 MG VIAL IVP SCH (09:43)
[2021-09-20] MEDS: BROVANA IN SCH ×2 (09:50→21:10)
[2021-09-20] MEDS: MUCOMYST (RESPIRATORY USE ONLY) NEB SCH ×2 (09:50→21:10)
[2021-09-20] MEDS: PULMICORT NEB TX 0.5 MG NEB SCH ×2 (09:50→21:10)
[2021-09-20] MEDS ORDERED: DRUG FILTER EXTENSION SET ONE (10:27)
[2021-09-20] MEDS: CLINIMIX 5 %/20 % 1,000 ML with MVI INJ (ADULT) 10 ML, NovoLIN R (or HumuLIN R) 10 UNITS IV SCH ×6 (10:31→21:15)
[2021-09-20] MEDS ORDERED: DEXTROSE 10% 1,000 ML IV PRN (11:17)
[2021-09-20 11:45] LABS: MAGNESIUM 3.3 mg/dL (1.7-2.9); PHOSPHORUS 4.6 mg/dL (2.6-4.7)
[2021-09-20] MEDS: NovoLIN R (or HumuLIN R) SUBCUT PRN ×3 (12:32→21:21)
[2021-09-20] MEDS ORDERED: NS 1,000 ML IV 1,000 ML IV ONE (15:28)
[2021-09-20] MEDS: SNACK - Diabetic Appropriate PO SCH (21:12)
[2021-09-21] MEDS: NovoLIN R (or HumuLIN R) SUBCUT PRN ×3 (00:15→10:02)
[2021-09-21] MEDS: MORPHINE SULFATE INJ 4 MG IVP PRN ×2 (00:40→07:17)
[2021-09-21] MEDS: LOPRESSOR INJ 5 MG AMP IVP SCH ×2 (03:44→10:54)
[2021-09-21] MEDS: ATIVAN INJ 2 MG VIAL IVP PRN ×2 (04:16→10:52)
[2021-09-21 05:36] LABS: BASOPHILS % (AUTO) 0.2 % (0.2-1.0); EOSINOPHILS # (AUTO) 0.2 x10^3/uL (0.0-0.2); EOSINOPHILS % (AUTO) 3.6 % (0.9-2.9); HEMATOCRIT 31.7 % (42.0-54.0); HEMOGLOBIN 10.4 g/dL (13.5-18.0); LYMPHOCYTES # (AUTO) 0.5 X10^3/uL (1.3-2.9); LYMPHOCYTES % (AUTO) 8.6 % (21.0-51.0); MEAN CORPUSCULAR HEMOGLOBIN 31.2 pg (27.0-34.0); MEAN CORPUSCULAR HGB CONC 32.8 g/dL (33.0-35.0); MEAN CORPUSCULAR VOLUME 95.1 fL (80.0-100.0); MEAN PLATELET VOLUME 10.9 fL (7.4-11.0); MONOCYTES # (AUTO) 0.2 x10^3/uL (0.3-0.8); MONOCYTES % (AUTO) 3.8 % (0.0-13.0); NEUTROPHILS # (AUTO) 5.2 x10^3/uL (2.2-4.8); NEUTROPHILS % (AUTO) 83.8 % (42.0-75.0); RED BLOOD COUNT 3.34 X10^6/uL (4.7-6.0); RED CELL DISTRIBUTION WIDTH 15.7 % (11.6-16.5); WHITE BLOOD COUNT 6.2 X10^3/uL (3.6-10.0)
[2021-09-21 05:42] LABS: BLOOD UREA NITROGEN 51 mg/dL (7-18); CALCIUM 8.7 mg/dL (8.5-10.1); CARBON DIOXIDE 32.4 mmol/L (21-32); COR NA(FOR HYPERGLY) 169 mmol/L (136-145); CREATININE 1.24 mg/dL (0.70-1.30); eGFR NON BLACK RACES > 60 (>60)
[2021-09-21 05:47] LABS: CHLORIDE 128 mmol/L (98-107); SODIUM 165 mmol/L (136-145)
[2021-09-21 06:12] LABS: ALANINE AMINOTRANSFERASE 52 Units/L (12-78); ALBUMIN 1.9 g/dL (3.4-5.0); ALKALINE PHOSPHATASE 138 Units/L (46-116); ASPARTATE AMINO TRANSFERASE 45 Units/L (15-37); COR CA(FOR HYPOALB) 10.4 mg/dL (8.5-10.1); TOTAL PROTEIN 6.2 g/dL (6.4-8.2)
[2021-09-21 06:37] LABS: PREALBUMIN 18.2 mg/dL (18-35.7)
[2021-09-21] MEDS: CLINIMIX 5 %/20 % 1,000 ML with MVI INJ (ADULT) 10 ML, NovoLIN R (or HumuLIN R) 10 UNITS IV SCH ×6 (06:38→08:50)
[2021-09-21 07:47] LABS: ABG BASE EXCESS 8.6 mmol/L (-2.0-2.0)
[2021-09-21 07:54] LABS: ABG ALLEN TEST POS
[2021-09-21] MEDS ORDERED: DRUG FILTER EXTENSION SET ONE (08:35)
[2021-09-21] MEDS: LOVENOX INJ 100 MG SYR SC SCH (08:48)
[2021-09-21] MEDS: NYSTATIN POWDER TOP SCH (08:49)
[2021-09-21] MEDS: SOLU-Medrol 40 MG VIAL IVP SCH (08:49)
[2021-09-21] MEDS: PEPCID 20 MG VIAL 20 MG in NS 50 ML IV 50 ML IV SCH (08:49)
[2021-09-21] MEDS: PROTONIX INJ 40 MG VIAL IVP SCH (08:49)
--- NOTE | 2021-09-21 08:59 | PCM.PROG ---
Progress Note Progress Note for Day of Date of Exam: 09/20/21 Subjective Subjective: Pt is a 75 year old male past medical history of COPD(BL home O2 between 2-3L), Hypertension, DMT2, admitted for COVID-19 pneumonia(positive 09/05) and hypoxia. Pt has been vaccinated with J&J vaccine, received Regen-COV outpatient. Patient's respiratory status with slight improvement over the weekend. He is currently requiring BiPAP with FiO2 80%. He is also experiencing respiratory fatigue. Pt has central line. Labs/imaging: Wbc 5.3, Hgb 10.4, Plt 119, Na 163, K 4.4, Creatinine 1.31, Glucose 72. ABG: pH 7.37, pCO2 67, pO2 77, HCO3 38, O2sat 95% on BiPAP FiO2 80%. Sputum culture NGTD. Pt is currently on pneumonia protocol that includes: IVF D5W@28 ml/h + TPN, IV Solumedrol 40mg daily, Remdesivir (completed), scheduled Bronchodilators Xopenex and Budesonide, Full dose lovenox, Actemra x 1, immune supporting supplements, supplemental O2, SSI, I/S, Physical therapy, Respiratory therapy consult, Smart vest. Family and patient have decided on no intubation. Continue IV morphine and ativan for air hunger and anxiety. Closely monitor and follow up labs/imaging. Critical care time spent 30-74 minutes in clinical assessment, reviewing labs/imaging, decision making, and documentation. Past Medical Family Social History Past Med/Fam/Surg Hx: No changes since H&P Allergies: Allergies adhesive tape Allergy (Verified 09/05/21 09:13) moxifloxacin [From Avelox] Allergy (Verified 09/05/21 09:13) Review of Systems ROS: No change since H&P Vital Signs and I&O's Vital Signs: Temperature 98.4 F Pulse Rate [Radial] 102 Pulse Rate 116 Respiratory Rate 27 Blood Pressure [Left Arm] 170/74 Blood Pressure 143/65 O2 Sat by Pulse Oximetry 81 Intake and Output: Intake & Output 09/18/21 09/19/21 09/20/21 09/21/21 23:59 23:59 23:59 23:59 Intake Total 515 / 515 696 / 696 1081 / 1081 1386 / 1386 Output Total 650 / 650 1075 / 1075 2350 / 2350 825 / 825 Balance -135 / -135 -379 / -379 -1269 / -1269 561 / 561 Physical Exam Oriented: Other Eyes: Normal Ear: Normal Nose: Normal Throat: Normal Respiratory: Diminished and Rales Cardiovascular: Normal : Normal Auscultation: Bowel Sounds: Normal Tenderness: Normal Skin: Normal Musculoskeletal: Normal Psychiatric: Normal Mood Description: Calm and Appropriate Affect: Normal Speech Pattern: Clear and Appropriate Laboratory and Diagnostics Result Diagrams: 09/21/21 04:37 09/21/21 04:37 Labs: 09/05/21 08:23 Sputum - Expectorated Sputum Sputum Culture - Final 09/05/21 08:23 Sputum - Expectorated Sputum - Final Laboratory WBC 6.2 X10^3/uL (3.6-10.0) 09/21/21 04:37 RBC 3.34 X10^6/uL (4.7-6.0) L 09/21/21 04:37 Hgb 10.4 g/dL (13.5-18.0) L 09/21/21 04:37 Hct 31.7 % (42.0-54.0) L 09/21/21 04:37 MCV 95.1 fL (80.0-100.0) 09/21/21 04:37 MCH 31.2 pg (27.0-34.0) 09/21/21 04:37 MCHC 32.8 g/dL (33.0-35.0) L 09/21/21 04:37 RDW 15.7 % (11.6-16.5) 09/21/21 04:37 Plt Count 120 X10^3/uL (150.0-450.0) L 09/21/21 04:37 Plt Count Comment Adequate (ADEQUATE) 09/16/21 04:50 MPV 10.9 fL (7.4-11.0) 09/21/21 04:37 Neut % (Auto) 83.8 % (42.0-75.0) H 09/21/21 04:37 Lymph % (Auto) 8.6 % (21.0-51.0) L 09/21/21 04:37 [place] % (Auto) 3.8 % (0.0-13.0) 09/21/21 04:37 Eos % (Auto) 3.6 % (0.9-2.9) H 09/21/21 04:37 Baso % (Auto) 0.2 % (0.2-1.0) 09/21/21 04:37 Neut # (Auto) 5.2 x10^3/uL (2.2-4.8) H 09/21/21 04:37 Lymph # (Auto) 0.5 X10^3/uL (1.3-2.9) L 09/21/21 04:37 [place] # (Auto) 0.2 x10^3/uL (0.3-0.8) L 09/21/21 04:37 Eos # (Auto) 0.2 x10^3/uL (0.0-0.2) 09/21/21 04:37 Baso # (Auto) 0.0 X10^3/uL (0.0-0.1) 09/21/21 04:37 Absolute Nucleated RBC 0.2 /100WBC 09/21/21 04:37 Total Counted 100 09/16/21 04:50 Neutrophils % (Manual) 93 % (39-76) H 09/16/21 04:50 Band Neutrophils % 1 % (0-10) 09/14/21 04:51 Lymphocytes % (Manual) 6 % (13-43) L 09/16/21 04:50 Monocytes % (Manual) 1 % (4-9) L 09/16/21 04:50 Eosinophils % (Manual) 2 % (0-6) 09/11/21 04:37 Plt Morphology Comment Normal (NORMAL) 09/16/21 04:50 RBC Morphology Normal (NORMAL) 09/16/21 04:50 D-Dimer 1.79 ug/ml (0.0-0.57) H* 09/05/21 08:19 Sample Site Rrad 09/21/21 07:40 ABG pH 7.290 (7.35-7.45) L 09/21/21 07:40 ABG pCO2 79.0 mmHg (35.0-45.0) H* 09/21/21 07:40 ABG pO2 43.0 mmHg (80.0-100.0) L* 09/21/21 07:40 ABG HCO3 38.0 mmol/L (22-26) H* 09/21/21 07:40 ABG O2 Saturation 72.0 % (90-100) L* 09/21/21 07:40 ABG Base Excess 8.6 mmol/L (-2.0-2.0) H 09/21/21 07:40 Mir Test Pos 09/21/21 07:40 A-a Gradient 357.0 mmHg 09/21/21 07:40 FiO2 70.0 09/21/21 07:40 Blood Gas Comments Brian well, bpap 09/21/21 07:40 Sodium 165 mmol/L (136-145) H* 09/21/21 04:37 Corrected Sodium 169 mmol/L (136-145) H 09/21/21 04:37 Potassium 4.0 mmol/L (3.5-5.1) 09/21/21 04:37 Chloride 128 mmol/L (98-107) H* 09/21/21 04:37 Carbon Dioxide 32.4 mmol/L (21-32) H 09/21/21 04:37 BUN 51 mg/dL (7-18) H 09/21/21 04:37 Creatinine 1.24 mg/dL (0.70-1.30) 09/21/21 04:37 Est GFR (MDRD) Af Amer > 60 (>60) 09/21/21 04:37 Est GFR (MDRD) Non-Af > 60 (>60) 09/21/21 04:37 Glucose 280 mg/dL (65-99) H 09/21/21 04:37 POC Glucose (mg/dL) 245 mg/dL (65-99) H 09/21/21 03:57 Calcium 8.7 mg/dL (8.5-10.1) 09/21/21 04:37 Corrected Calcium 10.4 mg/dL (8.5-10.1) H 09/21/21 04:37 Phosphorus 4.6 mg/dL (2.6-4.7) 09/20/21 11:30 Magnesium 3.3 mg/dL (1.7-2.9) H 09/20/21 11:30 Total Bilirubin 0.50 mg/dL (0.2-1.0) 09/21/21 04:37 AST 45 Units/L (15-37) H 09/21/21 04:37 ALT 52 Units/L (12-78) 09/21/21 04:37 Alkaline Phosphatase 138 Units/L (46-116) H 09/21/21 04:37 C-Reactive Protein 5.90 mg/L (0-3.0) H 09/17/21 04:44 Total Protein 6.2 g/dL (6.4-8.2) L 09/21/21 04:37 Albumin 1.9 g/dL (3.4-5.0) L 09/21/21 04:37 Globulin 4.3 g/dL (2.5-4.5) 09/21/21 04:37 Albumin/Globulin Ratio 0.4 Ratio (1.1-2.1) L 09/21/21 04:37 Prealbumin 18.2 mg/dL (18-35.7) 09/21/21 04:37 Triglycerides 208 mg/dL (0-150) H 09/20/21 11:30 SARS-CoV-2 (PCR) Positive (NEGATIVE) A 09/05/21 08:40 Influenza Type A (PCR) Negative (NEGATIVE) 09/05/21 08:40 Influenza Type B (PCR) Negative (NEGATIVE) 09/05/21 08:40 RSV (PCR) Negative (NEGATIVE) 09/05/21 08:40 Plan (1) COVID-19: Status: Acute Plan: Pneumonia protocol (2) Chronic obstructive pulmonary disease with acute respiratory distress: Status: Acute Plan: Continue current treatment. Pt is a limited DNR. (3) Acute renal failure: Status: Acute (4) Dehydration: Status: Acute (5) Hypernatremia: Status: Acute Plan: Continue D5W
[2021-09-21] MEDS: PULMICORT NEB TX 0.5 MG NEB SCH (09:08)
[2021-09-21] MEDS: MUCOMYST (RESPIRATORY USE ONLY) NEB SCH (09:08)
[2021-09-21] MEDS: BROVANA IN SCH (09:08)
--- NOTE | 2021-09-21 10:09 | PCM.PROG ---
Progress Note Progress Note for Day of Date of Exam: 09/21/21 Subjective Subjective: Pt is a 75 year old male past medical history of COPD(BL home O2 between 2-3L), Hypertension, DMT2, admitted for COVID-19 pneumonia(positive 09/05) and hypoxia. Pt has been vaccinated with J&J vaccine, received Regen-COV outpatient. Pt's condition acutely worsened yesterday, he was requiring BiPAP with FiO2 100%. He became acutely hypotensive and required 1L NS bolus. He has respiratory fatigue and is now having some skin breakdown around the mask. Pt has central line. Labs/imaging: Wbc 6.2, Hgb 10.4, Plt 120, Na 165, K 4.0, Creatinine 1.24, Glucose 280. ABG: pH 7.29, pCO2 79, pO2 43, HCO3 38, O2sat 72% on BiPAP. Sputum culture NGTD. Pt is currently on pneumonia protocol that includes: IVF D5W@28 ml/h + TPN, IV Solumedrol 40mg daily, Remdesivir (completed), scheduled Bronchodilators Xopenex and Budesonide, Full dose lovenox, Actemra x 1, immune supporting supplements, supplemental O2, SSI, I/S, Physical therapy, Respiratory therapy consult, Smart vest. Family and patient have decided on no intubation. Pt now with poor prognosis. Continue IV morphine and ativan for air hunger and anxiety. Closely monitor and follow up labs/imaging. Critical care time spent 30-74 minutes in clinical assessment, reviewing labs/imaging, decision making, and documentation. Past Medical Family Social History Past Med/Fam/Surg Hx: No changes since H&P Allergies: Allergies adhesive tape Allergy (Verified 09/05/21 09:13) moxifloxacin [From Avelox] Allergy (Verified 09/05/21 09:13) Review of Systems ROS: No change since H&P Vital Signs and I&O's Vital Signs: Temperature 98.4 F Pulse Rate [Radial] 102 Pulse Rate 116 Respiratory Rate 27 Blood Pressure [Left Arm] 170/74 Blood Pressure 143/65 O2 Sat by Pulse Oximetry 81 Intake and Output: Intake & Output 09/18/21 09/19/21 09/20/21 09/21/21 23:59 23:59 23:59 23:59 Intake Total 515 / 515 696 / 696 1081 / 1081 1386 / 1386 Output Total 650 / 650 1075 / 1075 2350 / 2350 825 / 825 Balance -135 / -135 -379 / -379 -1269 / -1269 561 / 561 Physical Exam Oriented: Other Eyes: Normal Ear: Normal Nose: Normal Throat: Normal Respiratory: Diminished and Rales Cardiovascular: Normal : Normal Auscultation: Bowel Sounds: Normal Tenderness: Normal Skin: Normal Musculoskeletal: Normal Psychiatric: Normal Mood Description: Calm and Appropriate Affect: Normal Speech Pattern: Clear and Appropriate Laboratory and Diagnostics Result Diagrams: 09/21/21 04:37 09/21/21 04:37 Labs: 09/05/21 08:23 Sputum - Expectorated Sputum Sputum Culture - Final 09/05/21 08:23 Sputum - Expectorated Sputum - Final Laboratory WBC 6.2 X10^3/uL (3.6-10.0) 09/21/21 04:37 RBC 3.34 X10^6/uL (4.7-6.0) L 09/21/21 04:37 Hgb 10.4 g/dL (13.5-18.0) L 09/21/21 04:37 Hct 31.7 % (42.0-54.0) L 09/21/21 04:37 MCV 95.1 fL (80.0-100.0) 09/21/21 04:37 MCH 31.2 pg (27.0-34.0) 09/21/21 04:37 MCHC 32.8 g/dL (33.0-35.0) L 09/21/21 04:37 RDW 15.7 % (11.6-16.5) 09/21/21 04:37 Plt Count 120 X10^3/uL (150.0-450.0) L 09/21/21 04:37 Plt Count Comment Adequate (ADEQUATE) 09/16/21 04:50 MPV 10.9 fL (7.4-11.0) 09/21/21 04:37 Neut % (Auto) 83.8 % (42.0-75.0) H 09/21/21 04:37 Lymph % (Auto) 8.6 % (21.0-51.0) L 09/21/21 04:37 [place] % (Auto) 3.8 % (0.0-13.0) 09/21/21 04:37 Eos % (Auto) 3.6 % (0.9-2.9) H 09/21/21 04:37 Baso % (Auto) 0.2 % (0.2-1.0) 09/21/21 04:37 Neut # (Auto) 5.2 x10^3/uL (2.2-4.8) H 09/21/21 04:37 Lymph # (Auto) 0.5 X10^3/uL (1.3-2.9) L 09/21/21 04:37 Real # (Auto) 0.2 x10^3/uL (0.3-0.8) L 09/21/21 04:37 Eos # (Auto) 0.2 x10^3/uL (0.0-0.2) 09/21/21 04:37 Baso # (Auto) 0.0 X10^3/uL (0.0-0.1) 09/21/21 04:37 Absolute Nucleated RBC 0.2 /100WBC 09/21/21 04:37 Total Counted 100 09/16/21 04:50 Neutrophils % (Manual) 93 % (39-76) H 09/16/21 04:50 Band Neutrophils % 1 % (0-10) 09/14/21 04:51 Lymphocytes % (Manual) 6 % (13-43) L 09/16/21 04:50 Monocytes % (Manual) 1 % (4-9) L 09/16/21 04:50 Eosinophils % (Manual) 2 % (0-6) 09/11/21 04:37 Plt Morphology Comment Normal (NORMAL) 09/16/21 04:50 RBC Morphology Normal (NORMAL) 09/16/21 04:50 D-Dimer 1.79 ug/ml (0.0-0.57) H* 09/05/21 08:19 Sample Site Rrad 09/21/21 07:40 ABG pH 7.290 (7.35-7.45) L 09/21/21 07:40 ABG pCO2 79.0 mmHg (35.0-45.0) H* 09/21/21 07:40 ABG pO2 43.0 mmHg (80.0-100.0) L* 09/21/21 07:40 ABG HCO3 38.0 mmol/L (22-26) H* 09/21/21 07:40 ABG O2 Saturation 72.0 % (90-100) L* 09/21/21 07:40 ABG Base Excess 8.6 mmol/L (-2.0-2.0) H 09/21/21 07:40 Mir Test Pos 09/21/21 07:40 A-a Gradient 357.0 mmHg 09/21/21 07:40 FiO2 70.0 09/21/21 07:40 Blood Gas Comments Brian well, bpap 09/21/21 07:40 Sodium 165 mmol/L (136-145) H* 09/21/21 04:37 Corrected Sodium 169 mmol/L (136-145) H 09/21/21 04:37 Potassium 4.0 mmol/L (3.5-5.1) 09/21/21 04:37 Chloride 128 mmol/L (98-107) H* 09/21/21 04:37 Carbon Dioxide 32.4 mmol/L (21-32) H 09/21/21 04:37 BUN 51 mg/dL (7-18) H 09/21/21 04:37 Creatinine 1.24 mg/dL (0.70-1.30) 09/21/21 04:37 Est GFR (MDRD) Af Amer > 60 (>60) 09/21/21 04:37 Est GFR (MDRD) Non-Af > 60 (>60) 09/21/21 04:37 Glucose 280 mg/dL (65-99) H 09/21/21 04:37 POC Glucose (mg/dL) 245 mg/dL (65-99) H 09/21/21 03:57 Calcium 8.7 mg/dL (8.5-10.1) 09/21/21 04:37 Corrected Calcium 10.4 mg/dL (8.5-10.1) H 09/21/21 04:37 Phosphorus 4.6 mg/dL (2.6-4.7) 09/20/21 11:30 Magnesium 3.3 mg/dL (1.7-2.9) H 09/20/21 11:30 Total Bilirubin 0.50 mg/dL (0.2-1.0) 09/21/21 04:37 AST 45 Units/L (15-37) H 09/21/21 04:37 ALT 52 Units/L (12-78) 09/21/21 04:37 Alkaline Phosphatase 138 Units/L (46-116) H 09/21/21 04:37 C-Reactive Protein 5.90 mg/L (0-3.0) H 09/17/21 04:44 Total Protein 6.2 g/dL (6.4-8.2) L 09/21/21 04:37 Albumin 1.9 g/dL (3.4-5.0) L 09/21/21 04:37 Globulin 4.3 g/dL (2.5-4.5) 09/21/21 04:37 Albumin/Globulin Ratio 0.4 Ratio (1.1-2.1) L 09/21/21 04:37 Prealbumin 18.2 mg/dL (18-35.7) 09/21/21 04:37 Triglycerides 208 mg/dL (0-150) H 09/20/21 11:30 SARS-CoV-2 (PCR) Positive (NEGATIVE) A 09/05/21 08:40 Influenza Type A (PCR) Negative (NEGATIVE) 09/05/21 08:40 Influenza Type B (PCR) Negative (NEGATIVE) 09/05/21 08:40 RSV (PCR) Negative (NEGATIVE) 09/05/21 08:40 Plan (1) COVID-19: Status: Acute Plan: Pneumonia protocol (2) Chronic obstructive pulmonary disease with acute respiratory distress: Status: Acute Plan: Continue current treatment. Pt is a limited DNR. (3) Acute renal failure: Status: Acute (4) Dehydration: Status: Acute (5) Hypernatremia: Status: Acute Plan: Continue D5W
[2021-09-21] MEDS ORDERED: MORPHINE SULFATE INJ 4 MG IVP PRN (11:06)
--- NOTE | 2021-09-21 11:08 | RAD ---
HISTORYHYPOXIA, COVID +STUDYCHEST x-ray, 1 VIEWCOMPARISONX-ray 09/19/2021FINDINGSCentral venous catheter terminates in the region the mid SVC. Patient has had prior cardiac surgery. Borderline CHF changes are seen. Worsening lung infiltrates are seen possibly due to pneumonia and/or pulmonary edema. No pneumothorax or pleural effusion is seen.IMPRESSIONWorsening lung infiltrates could be due to worsening pneumonia and/or pulmonary edema.Electronically signed by: Alvino Nunez (Sep 21, 2021 11:07:43)
[2021-09-21] MEDS ORDERED: ATIVAN INJ 2 MG VIAL IVP ONE (11:12)
[2021-09-21 15:39] VITALS: BP 108/78
--- NOTE | 2021-10-04 09:47 | DR.DECEASE ---
FORM Date of Admission Date of Admission: 09/05/21 Admission Diagnosis Current Active Problems Problem Status Onset Chronic obstructive pulmonary disease with acute respiratory distress COVID-19 Diabetes mellitus type 2, insulin dependent CAD (coronary artery disease) Benign essential HTN Essential hypertriglyceridemia Hypothyroidism Discharge Diagnosis (1) COVID-19: Problems (Updated 09/18/21 @ 17:19 by MG RAMOS) Hypernatremia (Acute) E87.0 Dehydration (Acute) E86.0 Acute renal failure (Acute) N17.9 Chronic obstructive pulmonary disease with acute respiratory distress (Acute) J44.1 COVID-19 (Acute) U07.1 Diabetes mellitus type 2, insulin dependent (Acute) E11.9, Z79.4 CAD (coronary artery disease) (Acute) I25.10 Benign essential HTN (Acute) I10 Essential hypertriglyceridemia (Acute) E78.1 Hypothyroidism (Acute) E03.9 (2) Chronic obstructive pulmonary disease with acute respiratory distress: Problems (Updated 09/18/21 @ 17:19 by MG RAMOS) Hypernatremia (Acute) E87.0 Dehydration (Acute) E86.0 Acute renal failure (Acute) N17.9 Chronic obstructive pulmonary disease with acute respiratory distress (Acute) J44.1 COVID-19 (Acute) U07.1 Diabetes mellitus type 2, insulin dependent (Acute) E11.9, Z79.4 CAD (coronary artery disease) (Acute) I25.10 Benign essential HTN (Acute) I10 Essential hypertriglyceridemia (Acute) E78.1 Hypothyroidism (Acute) E03.9 (3) Acute renal failure: Problems (Updated 09/18/21 @ 17:19 by MG RAMOS) Hypernatremia (Acute) E87.0 Dehydration (Acute) E86.0 Acute renal failure (Acute) N17.9 Chronic obstructive pulmonary disease with acute respiratory distress (Acute) J44.1 COVID-19 (Acute) U07.1 Diabetes mellitus type 2, insulin dependent (Acute) E11.9, Z79.4 CAD (coronary artery disease) (Acute) I25.10 Benign essential HTN (Acute) I10 Essential hypertriglyceridemia (Acute) E78.1 Hypothyroidism (Acute) E03.9 (4) Dehydration: Problems (Updated 09/18/21 @ 17:19 by MG RAMOS) Hypernatremia (Acute) E87.0 Dehydration (Acute) E86.0 Acute renal failure (Acute) N17.9 Chronic obstructive pulmonary disease with acute respiratory distress (Acute) J44.1 COVID-19 (Acute) U07.1 Diabetes mellitus type 2, insulin dependent (Acute) E11.9, Z79.4 CAD (coronary artery disease) (Acute) I25.10 Benign essential HTN (Acute) I10 Essential hypertriglyceridemia (Acute) E78.1 Hypothyroidism (Acute) E03.9 (5) Hypernatremia: Problems (Updated 09/18/21 @ 17:19 by MG RAMOS) Hypernatremia (Acute) E87.0 Dehydration (Acute) E86.0 Acute renal failure (Acute) N17.9 Chronic obstructive pulmonary disease with acute respiratory distress (Acute) J44.1 COVID-19 (Acute) U07.1 Diabetes mellitus type 2, insulin dependent (Acute) E11.9, Z79.4 CAD (coronary artery disease) (Acute) I25.10 Benign essential HTN (Acute) I10 Essential hypertriglyceridemia (Acute) E78.1 Hypothyroidism (Acute) E03.9 Labs Result Diagrams: 09/21/21 04:37 09/21/21 04:37 Home Medications Home Medications Medication Instructions Recorded Type albuterol sulfate 2.5 mg INHALATION Q6HR PRN 09/05/21 History aspirin [Aspir-81] 81 mg PO DAILY 09/05/21 History azithromycin 500 mg PO DAILY 09/05/21 History budesonide-formoterol [Symbicort] 2 puff INHALATION DAILY 09/05/21 History cetirizine 5 mg PO HS 09/05/21 History clopidogrel [Plavix] 75 mg PO DAILY 09/05/21 History fluticasone propionate [Flonase 2 spray INTRANASAL DAILY 09/05/21 History Allergy Relief] gabapentin 300 mg PO BID 09/05/21 History gemfibrozil 600 mg PO BID 09/05/21 History hydrochlorothiazide 12.5 mg PO DAILY 09/05/21 History insulin asp prt-insulin aspart 40 unit SUBCUT BID 09/05/21 History [Novolog Mix 70-30 U-100 Insuln] levothyroxine 75 mcg PO DAILY 09/05/21 History loratadine 10 mg PO DAILY 09/05/21 History metoprolol tartrate 50 mg PO BID 09/05/21 History pioglitazone 15 mg PO DAILY 09/05/21 History rosuvastatin 10 mg PO DAILY 09/05/21 History terazosin 2 mg PO DAILY 09/05/21 History tramadol 50 mg PO Q6H PRN 09/05/21 History Hospital Course Hospital Course: See progress note 09/21/21. Expiration Expiration Date: 09/21/21 Expiration Time: 12:55 Time Pronounced: 12:55 Pronounced by: Dr Ragsdale Preliminary Cause of : Acute Respiratory Failure due to COVID-19 pneumonia
== END 2021-09-21 15:10 | disposition expired | DRG 177 ==
LOC: ER 08:14 → ICU 09:59
PROVIDERS: ADMIT Family Medicine; ATTEND Family Medicine
DX: R26.89 Other abnormalities of gait and mobility; J96.01 Acute respiratory failure with hypoxia; I87.2 Venous insufficiency (chronic) (peripheral); E86.0 Dehydration; Z66 Do not resuscitate; R06.02 Shortness of breath; E11.65 Type 2 diabetes mellitus with hyperglycemia; R79.82 Elevated C-reactive protein (CRP); E87.0 Hyperosmolality and hypernatremia; I25.10 Atherosclerotic heart disease of native coronary artery without angina pectoris; U07.1 COVID-19; R94.31 Abnormal electrocardiogram [ECG] [EKG]; Z79.4 Long term (current) use of insulin; I10 Essential (primary) hypertension; J12.82 Pneumonia due to coronavirus disease 2019; E03.8 Other specified hypothyroidism; J44.1 Chronic obstructive pulmonary disease with (acute) exacerbation; N17.8 Other acute kidney failure